=== PATIENT | male | born 1945 | race Caucasian/White ===

== ENCOUNTER 2016-10-09 03:09 | Observation (INO) | payer OTHER, MEDICARE ==
[~2016-10-09] VITALS: Ht 180.3 cm; Wt 90.6 kg
[~2016-10-09 03:09] MED LIST: ASPI81TA28 PO; ATOR-26 PO; LSN5 PO; MECL1TAB40 PO
[2016-10-09] MEDS ORDERED: NITROGLYCERIN 0.4 MG SL PER TAB CHARGE SL PRN ×2 (03:45→05:15)
--- NOTE | 2016-10-09 03:48 | EMERGENCY ROOM VISIT NOTE ---
History Report prepared by Stoney: Bk Christine Under the Supervision of: Dr. Sergio Abreu M.D. Chief Complaint: CHEST PAIN Stated Complaint: CHEST PAIN History of Present Illness The patient is a 71 year old male who presents to the Emergency Room with complaints of improving chest pain that started at approximately 2300 tonight. The pain is substernal and does not radiate. The pain is described as a sharp sensation. The patient had Aspirin at approximately 0030. The patient had a heart attack in 2006 for which he was stented. He had 100% occlusion of the LAD at that time. He had more of a pressure sensation in his chest when he had the heart attack. His heart rate is typically low at baseline. The patient commonly experiences pain with acid reflux, however the current episode of pain is different. The patient is on Lisinopril for hypertension and a statin for HLD. He denies any history of diabetes and does not smoke. The patient follows up with [facility] Investigator Internal Affairs. The patient denies headaches, palpitations, shortness of breath, nausea, vomiting, abdominal pain, rectal bleeding, urinary symptoms, or leg pain. Source of History: patient Onset: 2300 tonight Position: chest Quality: sharp Timing: other (improving) Associated Symptoms: No SOB, No abdominal pain, No headache, No hematochezia , No melena, No nausea, No urinary symptoms Review of Systems See HPI for pertinent positives & negatives. A total of 10 systems reviewed and were otherwise negative. Past Medical & Surgical Medical Problems: (1) Chest pain (2) Coronary artery disease (3) Hyperlipidemia (4) Hyperlipidemia (5) Hypertension (6) Hypertension (7) [place] (myocardial infarction) Surgical Problems: (1) Stented coronary artery Family History Cancer Heart disease Social History Smoking Status: Former Smoker Alcohol Use: none Marital Status: Housing Status: lives alone Occupation Status: retired Current/Historical Medications Scheduled Aspirin (Aspirin Ec), 81 MG PO HS Atorvastatin (Lipitor), 80 MG PO HS Lisinopril (Lisinopril), 5 MG PO HS Allergies Coded Allergies: No Known Allergies (Verified , 02/28/16) Physical Exam Vital Signs Date Time Temp Pulse Resp B/P Pulse Ox O2 Delivery O2 Flow Rate FiO2 10/09/16 04:30 49 18 101/61 94 Room Air 10/09/16 04:09 63 18 88/55 92 Room Air 10/09/16 03:52 50 20 113/62 96 Room Air 10/09/16 03:50 48 10/09/16 03:37 95 Room Air 10/09/16 03:12 36.7 55 21 165/73 95 Room Air Physical Exam GENERAL: Patient is anxious appearing and in minimal distress. HEENT: No acute trauma, normocephalic atraumatic, mucous membranes moist, no nasal congestion, no scleral icterus. NECK: No stridor, no adenopathy, no meningismus, trachea is midline. LUNGS: No dyspnea. Clear to auscultation and equal bilaterally. No wheeze, no rhonchi. HEART: Regular rate and rhythm. No murmurs, rubs, gallops appreciated. ABDOMEN: Soft, nontender, bowel sounds positive, no masses appreciated, no peritonitis. BACK: No midline tenderness, no CVA tenderness EXTREMITIES: Normal motion all extremities, no cyanosis, no edema. NEUROLOGIC: Alert and oriented, no acute motor or sensory deficits, no focal weakness, cranial nerves grossly intact. SKIN: No rash, no jaundice, no diaphoresis. Medical Decision & Procedures ER Provider Diagnostic Interpretation: X ray results are stated below per my interpretation: Chest: 1 view: No infiltrate, no effusion, normal cardiac border. Laboratory Results 10/09/16 03:15 Test 10/09/16 03:15 D-Dimer 440 ug/L FEU (0-500) Anion Gap 6.0 mmol/L (3-11) Est Creatinine Clear Calc Drug Dose 70.3 ml/min Estimated GFR () 77.3 Estimated GFR (Non- 66.7 BUN/Creatinine Ratio 21.0 (10-20) Calcium Level 8.9 mg/dl (8.5-10.1) Total Creatine Kinase 164 U/L (39-308) Creatine Kinase MB 4.1 ng/ml (0.5-3.6) Creatine Kinase MB Ratio 2.5 (0-3.0) Troponin I 0.022 ng/ml (0-0.045) Chemistry Specimen Hemolysis Laboratory results as reviewed by me. Medications Administered Medications (Trade) Dose Ordered Sig/Arthur Route Start Time Stop Time Status Last Admin Dose Admin Nitroglycerin (Nitrostat Tab) 0.4 mg Q5M PRN SL 10/09/16 03:45 5/6/17 03:44 10/09/16 04:04 0.4 MG Miscellaneous Medication 24 ml 24 ml NOW STAT PO 10/09/16 04:11 10/09/16 04:12 DC 10/09/16 04:19 24 ML Sodium Chloride (Nss 1000ml) 1,000 ml @ 999 mls/hr Q1H1M STAT IV 10/09/16 04:11 10/09/16 05:11 DC 10/09/16 04:20 999 MLS/HR Al Hydroxide/Mg Hydroxide (Maalox Susp) 30 ml STK-MED ONCE .ROUTE 10/09/16 04:22 10/09/16 04:23 DC 10/09/16 04:19 30 ML Lidocaine HCl (Xylocaine 1% Inj (Local)) 20 ml STK-MED ONCE .ROUTE 10/09/16 04:22 10/09/16 04:23 DC 10/09/16 04:19 20 ML ECG Indication: chest pain Rate (beats per minute): 50 Rhythm: sinus bradycardia Findings: 1st degree AV block, nonspecific-ST abn, no ectopy, other (no STEMI) ED Course 0319: The patient was evaluated in room A2. A complete history and physical exam was performed. 0345: Nitroglycerin 0.4 mg SL. 0411: NSS 1000 ml @ 999 mls/hr, GI Cocktail 24 ml PO. 0425: The patient still has some chest pain. 0439: Discussed the case with Dr. Napier, [facility] Hospitalist. The patient will be evaluated. Medical Decision Differential: Cardiac Ischemia (STEMI, NSTEMI, Unstable Angina, etc), Aortic Dissection, Arrhythmia, Pulmonary Embolism, Pneumonia, Pneumothorax, MSK, Infectious, Pericarditis/Myocarditis, Esophageal Rupture, Gastrointestinal, amongst other pathologies entertained. 71 yr old male with non-radiating substernal chest pain. Unlike normal reflux per patient. EKG without STEMI. Trop wnl though non-negative. Improved with SLNTG/GI Cocktail though mild continued discomfort. With amount of hypotension with first nitro will hold off on further and just give fluids. No evidence dissection, PE. I do not feel he requires CTA a this time. With his history and risk factors I do not feel that discharge is reasonable and thus have asked hospitalists to evaluate. Stable and feeling well at time of hospitalist consult. Consults Time Called: [phone] Consulting Physician: Jose Miguel Mohr Hospitalist. Returned Call: [phone]: Discussed the case with Jose Miguel Mohr Hospitalist. The patient will be evaluated. Impression Primary Impression: Substernal precordial chest pain Scribe Attestation The scribe's documentation has been prepared under my direction and personally reviewed by me in its entirety. I confirm that the note above accurately reflects all work, treatment, procedures, and medical decision making performed by me. Departure Information Dispostion Being Evaluated By Hospitalist Referrals Imani Frausto D.O. (PCP) Patient Instructions [facility]
[2016-10-09 04:06] LABS: CALCIUM 8.9 mg/dl (8.5-10.1); CKMB/CK RATIO 2.5 (0-3.0); CREATININE 1.1 mg/dl (0.60-1.40)
[2016-10-09] MEDS ORDERED: GI COCKTAIL PO STA (04:11)
[2016-10-09] MEDS ORDERED: SODIUM CHLORIDE 0.9% 1000ML 1,000 ML IV STA (04:11)
[2016-10-09] MEDS ORDERED: LIDOCAINE HCL 1% 20 ML VIAL ONE (04:22)
[2016-10-09] MEDS ORDERED: ALUMINUM/MAGNESIUM SUSP 30 ML UDC ONE (04:22)
[2016-10-09] MEDS ORDERED: IV FLUIDS COMPLETED PRN (05:15)
[2016-10-09] MEDS ORDERED: POLYETHYLENE (MIRALAX) 17 GM PACK PO PRN (05:15)
[2016-10-09] MEDS ORDERED: ONDANSETRON INJ 2 MG/ML 2 ML VIAL IV PRN (05:15)
[2016-10-09] MEDS ORDERED: ACETAMINOPHEN 325 MG TAB PO PRN (05:15)
[2016-10-09] MEDS ORDERED: MAGNESIUM HYDROXIDE SUSP 30 ML UDC PO PRN (05:15)
[2016-10-09] MEDS ORDERED: ALUMINUM/MAGNESIUM/SIMETH (MAALOX MAX) 30 ML UDC PO PRN (05:15)
--- NOTE | 2016-10-09 05:47 | History and Physical ---
History & Physical Date & Time of Service: Oct 09, 2016 at 05:43 Chief Complaint: Chest Pain Primary Care Physician: Imani Frausto D.O. History of Present Illness Source: patient This is a 71 yo M with past medical hx of CAD -Acute NV in 2006 S/P 2 bare metal stent in LAD for severe proximal LAD stenosis revealed in emergent cardiac cath . Pt is very active at baseline -does regular exercise -cardio and weight lifting , denies of any SOB , or UGALDE with exercise presents today as he experiencing epigastric discomfort started approx at 11 pm , pt was watching TV no associated symptom of SOB , diaphoresis , dizzy spell , no radiation of pain to arm or Jaw pt gets frequent upper GI symptom /epigastric discomfort due to acid reflux - presence of hiatal Hernia He disregard his symptom for possible acid reflux -which usually goes away after 20-30 mins His symptom persisted and got worse -with aching discomfort in substernal region , made him concerned -came to ED for evaluation in the ED SL nitro gave minimum relief -but developed transient hypotension - SBP in 90's , responded with fluid bolus ; Bradycardic HR in low 50's significant improvement of symptom after GI cocktail during my interview -pt was chest pain , free , comfortable no recent episode of nausea , vomiting , dark stool , no fever , chills or cough . no orthopnea, or UGALDE Past Medical/Surgical History Medical Problems: (1) Coronary artery disease Status: Chronic Cardiac cath in 05/31/08 in [facility] [place], mild to moderate multivessel disease , 20% ostial lesion in left main , 30 % stenosis in distal LAD stent , 30% stenosis in the mid and distal LAD . 30% stenosis in second diagonal , 30% stenosis in the proximal circumflex , 40 % stenosis of the post descending artery (2) Hyperlipidemia Status: Chronic (3) Hyperlipidemia Status: Chronic (4) Hypertension Status: Chronic (5) Hypertension Status: Chronic (6) [place] (myocardial infarction) Status: Resolved Surgical Problems: (1) Stented coronary artery Status: Chronic Family History Cancer Heart disease Social History Smoking Status: Former Smoker Marital Status: Occupational Status: retired Immunizations History of Influenza Vaccine: N/A History of Tetanus Vaccine?: Yes Tetanus Immunization Date: Feb 21, 2010 History of Pneumococcal: Yes Pneumococcal Date: May 23, 2008 History of Hepatitis B Vaccine: No Allergies Coded Allergies: No Known Allergies (Verified , 02/28/16) Home Medications Scheduled Aspirin (Aspirin Ec), 81 MG PO HS Atorvastatin (Lipitor), 80 MG PO HS Lisinopril (Lisinopril), 5 MG PO HS Review of Systems Eyes: No diplopia, No discharge, No eye pain, No problem reported, No redness, No worsening of vision Respiratory: No cough, No dyspnea at rest, No dyspnea on exertion, No hemoptysis, No problem reported, No shortness of breath, No sputum, No wheezing Cardiovascular: + chest pain, No PND, No claudication, No edema, No orthopnea, No palpitations, No problem reported Abdomen: + GI bleeding (acid reflux ) Genitourinary - Male: No dysuria, No hematuria, No impotence, No lesions, No penile discharge, No problem reported, No urinary frequency, No urinary hesitancy, No urinary incontinence, No urinary retention, No urinary urgency Endocrine: No excessive thirst, No excessive urination, No fatigue, No problem reported Physical Exam Vital Signs Date Time Temp Pulse Resp B/P Pulse Ox O2 Delivery O2 Flow Rate FiO2 10/09/16 05:27 50 18 98/53 95 10/09/16 04:30 49 18 101/61 94 Room Air 10/09/16 04:09 63 18 88/55 92 Room Air 10/09/16 03:52 50 20 113/62 96 Room Air 10/09/16 03:50 48 10/09/16 03:37 95 Room Air 10/09/16 03:12 36.7 55 21 165/73 95 Room Air General Appearance: no apparent distress Eyes: normal inspection, PERRL, EOMI, sclerae normal Neck: no adenopathy, thyroid normal, no JVD Respiratory/Chest: chest non-tender, lungs clear, normal breath sounds, no respiratory distress, no accessory muscle use Cardiovascular: regular rate, rhythm, no edema, no gallop, no JVD, normal peripheral pulses Abdomen/GI: normal bowel sounds, non tender, soft Extremities/Musculoskelatal: normal capillary refill, no pedal edema Neurologic/Psych: alert, normal mood/affect, oriented x 3 Skin: normal color, warm/dry, no rash Lymphatic: no adenopathy Diagnostics Laboratory Results Results Past 24 Hours Test 10/09/16 03:15 Range/Units D-Dimer 440 0-500 ug/L FEU Sodium Level 145 136-145 mmol/L Potassium Level 4.0 3.5-5.1 mmol/L Chloride Level 109 98-107 mmol/L Carbon Dioxide Level 30 21-32 mmol/L Anion Gap 6.0 3-11 mmol/L Blood Urea Nitrogen 23 7-18 mg/dl Creatinine 1.10 0.60-1.40 mg/dl Est Creatinine Clear Calc Drug Dose 70.3 ml/min Estimated GFR () 77.3 Estimated GFR (Non- 66.7 BUN/Creatinine Ratio 21.0 10-20 Random Glucose 88 70-99 mg/dl Calcium Level 8.9 8.5-10.1 mg/dl Total Creatine Kinase 164 39-308 U/L Creatine Kinase MB 4.1 0.5-3.6 ng/ml Creatine Kinase MB Ratio 2.5 0-3.0 Troponin I 0.022 0-0.045 ng/ml Chemistry Specimen Hemolysis CXR normal Normal EKG Impression Assessment and Plan CHEST PAIN ATYPICAL FOR ANGINA ; very active at baseline -denied of any exercise induced chest discomfort or SOB hx of chronic GERD / hiatal Hernia initial cardiac markers , EKG -wnl given hx of CAD -serial cardiac markers will be checked ordered for resting ECHO cardiac stress test if repeat Cardiac markers negative , pt remains chest pain free GERD /HIATAL HERNIAL; mentions of improvement of symptom after GI cocktail PPI not ordered as pt gets Dizzy spell with PPI will benefit form out pt GI eval for ongoing symptom HX OF CAD S/P PTCA in 2006 has been stable since pt mentions of cardiac stress done few years back -was negative for ischemia cont Aspirin , statin , ACEI not on Beta beatriz for baseline bradycardia cont out pt follow up with Cardiology Dr Lee HTN : BP stable cont lisinopril HYPERLIPIDEMIA : on statin fasting lipid panel ordered BRADYCARDIA chronic -sinus bradycardia baseline HR in 50's ordered for TSH level to be checked not on beta beatriz had Holter monitor testing few years back -no arrhythmia noted FULL CODE DISPOSITION : observation status in Tele Discharge home as cardiac work up negative Medicine follow up with Dr Imani Frausto Cardiology follow up with Dr Tu Lee Level of Care Telemetry Resuscitation Status FULL RESUSCITATION VTE Prophylaxis VTE Risk Assessment Done? Y/N: Yes Risk Level: Moderate Given or contraindicated: T.E.D. Stockings, SCD's
[2016-10-09 05:53] LABS: CHOLESTEROL/HDL RATIO 2.4
[2016-10-09] MEDS ORDERED: HEPARIN SOD 5000 UNIT/0.5 ML CARP SQ SCH (06:00)
[2016-10-09 06:11] VITALS: BP 101/58; PULSE 41; TEMP 36.4; O2SAT 97; Ht 180.3 cm; Wt 90.6 kg
[2016-10-09 06:43] LABS: BASO % 0.4 %; BASO ABS # 0.03 K/uL (0-0.2); COMPLETE YES; EOS % 4.1 %; HEMATOCRIT 45.6 % (42-52); IG% 0.3 %; LYMPH % 41.4 %; LYMPH ABS # 2.86 K/uL (1.2-3.4); MEAN CELL VOLUME 90.5 fL (80-100); MEAN CORPUSCULAR HEMOGLOBIN 31.5 pg (25-34); MEAN CORPUSCULAR HGB CONC 34.9 g/dl (32-36); MEAN PLATELET VOLUME 10.4 fL (7.4-10.4); MONO % 13.9 %; NEUT % 39.9 %; PLATELET COUNT 216 K/uL (130-400); RED BLOOD COUNT 5.04 M/uL (4.7-6.1)
[2016-10-09 07:26] LABS: THYROID STIMULATING HORMONE 5.72 uIu/ml (0.300-4.500)
--- NOTE | 2016-10-09 07:35 | DIAGNOSTIC IMAGING REPORT ---
CHEST ONE VIEW PORTABLE CLINICAL HISTORY: Chest Pain dyspnea COMPARISON STUDY: 03/28/2015 FINDINGS: The bones soft tissues and hemidiaphragms are normal. The cardiomediastinal silhouette is normal. The lungs are clear. The pulmonary vasculature is normal. IMPRESSION: Negative chest. Electronically signed by: Redd Montoya M.D. 10/09/2016 7:33 AM Dictated Date/Time: 10/09/2016 7:33 AM
[2016-10-09 07:48] VITALS: BP 108/55; PULSE 48; TEMP 36.9; O2SAT 98
[2016-10-09 08:00] VITALS: O2SAT 98
--- NOTE | 2016-10-09 09:35 | Cardiology Consultation ---
Cardiology Consultation Date of Consultation: Oct 09, 2016 Requesting Physician: Karthikeyan Attending Jewelry Drill Operator: Lizeth (Redd Roberts PA-C) History of Present Illness Mr. Oropeza is a pleasant 71 year old male who is being seen at the request of Dr. Napier. Reason for consultation is chest pain. Mr. Oropeza notes substernal/epigastric discomfort that he gets from time to time "because I have a hiatal hernia, if I don't watch what I eat." He notes " usually having a liquid I regurgitate and burping but not this time and it didn' t go away." Yesterday he reheated fried chicken in the microwave for lunch and later had a large cup of coffee in the afternoon which he typically only consumes in the morning. For dinner he ate crab cakes and had Thin Mints late in the evening prior to laying back in a lounge chair and watching [employer] on [place]. While watching television he developed the nonradiating substernal/epigastric discomfort that was without associated shortness of breath or diaphoresis. Around 02:30 he became concern that it "may be something else" due to persistence of symptoms which usually resolve in ~30 minutes. In the ER the patient was evaluated by Dr. Abreu. EKG on presentation ( 03:13:28) to the ER demonstrated sinus bradycardia with sinus arrhythmia with 1st degree A-V block; old anterior infarct. QTc: 397 ms. No acute changes noted. CPK was normal at 164. CK-MB was mildly elevated at 4.1. Troponin was 0.022 ng/mL. Chest x-ray was interpreted as a negative chest as per Dr. Montoya. He was given a trial of sublingual nitroglycerin with resultant symptomatic hypotension requiring administration of IVF's. Thereafter he was given a GI cocktail which eventually resulted in complete resolution of his presenting symptoms. He has not had recurrence of chest discomfort since admission. Repeat EKG, 2nd set of cardiac enzymes, and TTE are pending at the time of my evaluation. The patient notes being active to his level of preference, without exertional complaint. He notes working out daily, at least 20 minutes of cardio and strength exercising when not able to ride his bicycle outdoors. He notes that the discomfort that brought him to the hospital was unlike the discomfort associated with his CO in 2006. (Redd Roberts PA-C) History Past Medical and Surgical History: Atherosclerotic coronary artery disease Status post prior anterior myocardial infarction in September 2006, PCI of the LAD with two bare metal stents. Initial course complicated by a low flow requiring intraaortic balloon pump augmentation. Recovery of LV function post procedure. Repeat cardiac catheterization at [facility] on 05/31/2008 revealed mild 3-vessel disease and an ejection fraction of 50%. Anatomy was right dominant with the RCA having luminal irregularities and a 40% tubular lesion in the PDA ( posterior descending artery). The LM had a 20% ostial lesion. The LCX had a 30% lesion in the proximal circumflex with the OM2 having multiple 20% lesions. The LAD had a 30% lesion in the distal portion of the LAD stent, 30% lesions in the mid and apical portions, 30% D2 stenosis. LV gram revealed an EF of 50% with discrete apical akinesis and mild to moderate anterior hypokinesis. Dyslipidemia with past elevated triglycerides. Hypertension, controlled. Beta-beatriz intolerance GERD Hiatal hernia Two arthroscopic right rotator cuff surgeries Arthroscopic left rotator cuff surgery Trigger finger release on the left Arthroscopic right knee surgery Inguinal hernia repair. Umbilical hernia repair Family History: Mother in August 2016, age 99, renal failure. Father a couple of years ago, age 97, with a URI. His father and a paternal uncle had prostate cancer. Maternal grandmother with CAD and CHF. Maternal uncles with CAD/CHF in their 80's. Social History: Reformed smoker, quit when he son was born in 1974. He smoked up to 2 ppd x 13 years. No smokeless tobacco use. Alcohol: 1-2 glasses of wine a few days per week. Retired post [employer] in 2006 after working in [employer] 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 . (Redd Roberts PA-C) Review Of Systems General: No fever, chills or night sweats. Head: No headache. No head trauma. Cardiovascular: See above. No palpitations. No orthopnea or PND. No edema. No near syncope or syncope. Pulmonary: No current cough. No hemoptysis. Gastrointestinal: GERD. Hiatal hernia. He notes taking Protonix for near two years post upper GI, feeling poorly with dizzy spells, fatigue, and " dehydration cycles." No melena, hematochezia. : No hematuria. No dysuria. Skin: No rash. Musculoskeletal: See above. Neurological: No history of TIA, CVA, or seizures Complete review of systems is as stated above, negative, or noncontributory. (Redd Roberts PA-C) Allergies Coded Allergies: No Known Allergies (Verified , 02/28/16) Medications Reported Home Medications Medications Dose Route/Sig Max Daily Dose Days Date Category Lisinopril 5 Mg Tab 5 Mg PO HS 01/06/14 Reported Lipitor (Atorvastatin Calcium) 80 Mg Tab 80 Mg PO HS 01/06/14 Reported Aspirin Ec (Aspirin) 81 Mg Tab 81 Mg PO HS 01/06/14 Reported (Redd Roberts PA-C) Physical Exam Vital Signs (Last 8hrs): Last 8 Hrs Date Time Temp Pulse Resp B/P Pulse Ox O2 Delivery O2 Flow Rate FiO2 10/09/16 08:00 98 Room Air 10/09/16 07:48 36.9 48 16 108/55 98 Room Air 10/09/16 06:11 36.4 41 18 101/58 97 Room Air 10/09/16 05:27 50 18 98/53 95 10/09/16 04:30 49 18 101/61 94 Room Air 10/09/16 04:09 63 18 88/55 92 Room Air 10/09/16 03:52 50 20 113/62 96 Room Air 10/09/16 03:50 48 10/09/16 03:37 95 Room Air 10/09/16 03:12 36.7 55 21 165/73 95 Room Air General Appearance: Alert and Oriented x3. NAD. Head: Normocephalic Atraumatic. Eyes: PER, EOMI, conjunctiva and sclera clear Neck: Supple. No carotid bruits. No JVD. No HJD. Respiratory: Breath sounds clear to auscultation bilaterally. No w/r/r. Cardiovascular: Bradycardic at 50 bpm. Normal S1 and S2. No murmurs appreciated. PMI is nondisplaced. Abdomen: +BS. No abdominal bruits. Soft. Nontender. Extremities: No edema. No clubbing. No cyanosis. Posterior tibial and dorsalis pedis pulses are 2/4 bilaterally. Neuro: No focal deficits. Psychiatric: Normal affect. (Redd Roberts PA-C) Data Last 24 Hours Test 10/09/16 03:15 10/09/16 09:00 White Blood Count 6.90 K/uL Red Blood Count 5.04 M/uL Hemoglobin 15.9 g/dL Hematocrit 45.6 % Mean Corpuscular Volume 90.5 fL Mean Corpuscular Hemoglobin 31.5 pg Mean Corpuscular Hemoglobin Concent 34.9 g/dl Platelet Count 216 K/uL Mean Platelet Volume 10.4 fL Neutrophils (%) (Auto) 39.9 % Lymphocytes (%) (Auto) 41.4 % Monocytes (%) (Auto) 13.9 % Eosinophils (%) (Auto) 4.1 % Basophils (%) (Auto) 0.4 % Neutrophils # (Auto) 2.75 K/uL Lymphocytes # (Auto) 2.86 K/uL Monocytes # (Auto) 0.96 K/uL Eosinophils # (Auto) 0.28 K/uL Basophils # (Auto) 0.03 K/uL RDW Standard Deviation 43.8 fL RDW Coefficient of Variation 13.3 % Immature Granulocyte % (Auto) 0.3 % Immature Granulocyte # (Auto) 0.02 K/uL Nucleated RBC Absolute Count (auto) 0.00 K/uL Nucleated Red Blood Cells % 0.0 % D-Dimer 440 ug/L FEU Sodium Level 145 mmol/L Potassium Level 4.0 mmol/L Chloride Level 109 mmol/L Carbon Dioxide Level 30 mmol/L Anion Gap 6.0 mmol/L Blood Urea Nitrogen 23 mg/dl Creatinine 1.10 mg/dl Est Creatinine Clear Calc Drug Dose 70.3 ml/min Estimated GFR () 77.3 Estimated GFR (Non- 66.7 BUN/Creatinine Ratio 21.0 Random Glucose 88 mg/dl Calcium Level 8.9 mg/dl Total Creatine Kinase 164 U/L Creatine Kinase MB 4.1 ng/ml Creatine Kinase MB Ratio 2.5 Troponin I 0.022 ng/ml Triglycerides Level 126 mg/dl Cholesterol Level 103 mg/dl HDL Cholesterol 43 mg/dl LDL Cholesterol, Calculated 35 mg/dl VLDL Cholesterol, Calculated 25 mg/dl Cholesterol/HDL Ratio 2.4 Thyroid Stimulating Hormone (TSH) 5.720 uIu/ml Chemistry Specimen Hemolysis CXR: See above. EKG: See above. Telemetry: Sinus bradycardia predominately, down to 34 bpm. No significant pauses. No atrial arrhythmias. (Redd Roberts, PA-C) Assessment & Plan Atypical chest pain History suggests GI etiology CXR without active cardiopulmonary disease EKG without acute changes. Troponin 0.022 ng/ml. Further recommendations pending review of today's EKG, 2nd set of enzymes, and resting echocardiography. Likely proceeding with stress echocardiography to assess for obstructive disease as well as to identify chronotropic incompetence. Continue ASA, statin, and MECHE inhibition Beta-beatriz contraindicated (marked resting bradycardia). (Redd Roberts, MELODIE-C) Cardioogy Attending Physician: Patient seen and examined at the bedside. No recurrent epigastric or chest discomfort this AM. Discomfort relieved with 'GI cocktail' in ED. History of hiatal hernia. States he normally exercises daily without exertional symptoms. Sinus bradycardia on telemetry. PE: VSS, bradycardic. Gen: NAD, AAO x3. Neck: No JVD, No bruit. Heart: Regular, normal S1S2, no murmur. Lungs: Clear B/L, No R/R/W. Ext: No edema. A/P: Agree with above PA-C history, physical exam, assessment and plan. Second second of troponins are not significantly elevated. Resting echocardiogram demonstrates Apical wall motion abnormality with preserved systolic function ( stable compared to prior study). Will proceed with exercise stress echocardiography. Abebe Stanley DO, [facility] (Scot Stanley DO)
[2016-10-09 09:36] LABS: CKMB/CK RATIO 2.6 (0-3.0)
--- NOTE | 2016-10-09 10:50 | ECHOCARDIOGRAM REPORT ---
*NOTICE TO RECEIVING REPUBLICAN AGENCY This information is strictly Confidential and protected under [place] law. [place] law prohibits you from making any further disclosure of this information unless further disclosure is expressly permitted by the written consent of the person to whom it pertains or is authorized by law. A general authorization for the release of medical or other information is not sufficient for this purpose. Hospital accepts no responsibility if the information is made available to any other person, INCLUDING THE PATIENT. Interpretation Summary * Name: LEXY GARZA Study Date: 10/09/2016 08:59 AM BP: 98/53 mmHg * Patient Location: C.2T\S\E221\S\1 HR: 50 * : 1945 (M/d/yyyy) Gender: Male Height: 70 in * Age: 71 yrs Ethnicity: CA Weight: 202 lb * Ordering Physician: Isabelle Napier * Referring Physician: Self, Referred * Performed By: Sravani Sheriff RCS * * Reason For Study: Chest Pain * BSA: 2.1 m2 * The study was technically adequate. * Compared to prior study, there is no significant change. * -- Conclusions -- * Left ventricular systolic function is normal. * Ejection Fraction = 55-60%. * There is mild tricuspid regurgitation. * Mildly dilated ascending aorta. * Diastolic dysfunction, Grade II (pseudonormalization pattern). Procedure Details * A complete two-dimensional transthoracic echocardiogram was performed (2D, M-mode, Doppler and color flow Doppler). Left Ventricle * The left ventricle is normal in size. * The left ventricular apex is not well visualized. * There is normal left ventricular wall thickness. * Left ventricular systolic function is normal. * Ejection Fraction = 55-60%. * The left ventricular wall motion is normal. Right Ventricle * The right ventricle is normal size. * The right ventricular systolic function is normal as assessed by tricuspid annular plane systolic excursion (TAPSE) (normal >1.5 cm). Atria * The left atrium is mildly dilated. * Right atrial size is normal. * There is no evidence of atrial septal defect, but resolution does not allow assessment for a patent foramen ovale. Mitral Valve * There is mild mitral annular calcification. * There is no mitral valve stenosis. * Significant mitral regurgitation is absent. Tricuspid Valve * The tricuspid valve is normal. * There is no tricuspid stenosis. * There is mild tricuspid regurgitation. * Doppler findings do not suggest pulmonary hypertension. Aortic Valve * The aortic valve is trileaflet. * Aortic stenosis is absent. * There is no significant aortic regurgitation. Pulmonic Valve * The pulmonary valve is not well seen, but the Doppler examination is normal without significant regurgitation or stenosis. Great Vessels * The aortic root is normal size. * Mildly dilated ascending aorta. Pericardium/Pleural * There is no pericardial effusion. Great Vessels * Normal inferior vena cava diameter and respiratory variation suggests normal central venous pressure. Left Ventricular Diastolic Function * Diastolic dysfunction, Grade II (pseudonormalization pattern). MMode 2D Measurements and Calculations IVSd 1.0 cm IVSs 1.3 cm LVIDd 5.2 cm LVIDs 2.9 cm LVPWd 0.99 cm LVPWs 1.4 cm IVS/LVPW 1.1 FS 44.2 % EDV(Teich) 127.7 ml ESV(Teich) 31.7 ml EF(Teich) 75.2 % EDV(cubed) 138.1 ml ESV(cubed) 23.9 ml EF(cubed) 82.7 % % IVS thick 27.2 % % LVPW thick 39.3 % LV mass(C)d 196.6 grams LV mass(C)dI 93.8 grams/m\S\2 LV mass(C)s 125.9 grams LV mass(C)sI 60.1 grams/m\S\2 CO(Teich) 3.9 l/min CI(Teich) 1.9 l/min/m\S\2 SV(Teich) 96.0 ml SI(Teich) 45.8 ml/m\S\2 CO(cubed) 4.7 l/min CI(cubed) 2.2 l/min/m\S\2 SV(cubed) 114.1 ml SI(cubed) 54.5 ml/m\S\2 Ao root diam 3.8 cm Ao root area 11.5 cm\S\2 ACS 2.0 cm LA dimension 4.3 cm LA/Ao 1.1 LVAd ap4 30.7 cm\S\2 LVLd ap4 9.0 cm EDV(MOD-sp4) 86.0 ml LVAs ap4 15.5 cm\S\2 LVLs ap4 6.9 cm ESV(MOD-sp4) 30.0 ml EF(MOD-sp4) 65.1 % LVAd ap2 34.8 cm\S\2 LVLd ap2 8.2 cm EDV(MOD-sp2) 124.0 ml LVAs ap2 18.9 cm\S\2 LVLs ap2 6.7 cm ESV(MOD-sp2) 45.0 ml EF(MOD-sp2) 63.7 % CO(MOD-sp4) 2.3 l/min CI(MOD-sp4) 1.1 l/min/m\S\2 SV(MOD-sp4) 56.0 ml SI(MOD-sp4) 26.7 ml/m\S\2 CO(MOD-sp2) 3.2 l/min CI(MOD-sp2) 1.5 l/min/m\S\2 SV(MOD-sp2) 79.0 ml SI(MOD-sp2) 37.7 ml/m\S\2 Doppler Measurements and Calculations MV E max davin 88.8 cm/sec MV A max davin 61.9 cm/sec MV E/A 1.4 MV P1/2t max davin 87.8 cm/sec MV P1/2t 136.0 msec MVA(P1/2t) 1.6 cm\S\2 MV dec slope 189.1 cm/sec\S\2 MV dec time 0.27 sec Ao V2 max 98.4 cm/sec Ao max PG 3.9 mmHg Ao max PG (full) -0.63 mmHg LV V1 max PG 4.5 mmHg LV V1 max 106.1 cm/sec PA V2 max 76.8 cm/sec PA max PG 2.4 mmHg TR max davin 215.0 cm/sec
[2016-10-09 11:48] VITALS: BP 104/57; PULSE 45; TEMP 36.4; O2SAT 98
[2016-10-09 12:00] VITALS: O2SAT 98
[2016-10-09] MEDS ORDERED: PERFLUTREN LIPID MICROSPHERE (DEFINITY) IV ONE (12:31)
--- NOTE | 2016-10-09 13:33 | Discharge Instructions ---
Discharge Instructions Date of Service Oct 09, 2016. Admission Reason for Admission: Chest Pain Discharge Discharge Diagnosis / Problem: Atypical chest pain Discharge Goals Goal(s): Diagnostic testing Activity Recommendations Activity Limitations: resume your previous activity . Instructions / Follow-Up Instructions / Follow-Up Please follow up with Family Medicine Dr. Frausto on October 14 at 10:00am. Current Hospital Diet Patient's current hospital diet: Discharge Diet Recommended Diet: AHA Diet (Heart Healthy) Procedures Procedures Performed: Treadmill stress echocardiogram Pending Studies Studies pending at discharge: no Laboratory Results Lipid Panel Test 10/09/16 03:15 Range/Units Triglycerides Level 126 0-150 mg/dl Cholesterol Level 103 0-200 mg/dl HDL Cholesterol 43 mg/dl Cholesterol/HDL Ratio 2.4 LDL Cholesterol, Calculated 35 mg/dl Medical Emergencies . Who to Call and When: Medical Emergencies: If at any time you feel your situation is an emergency, please call 911 immediately. . Non-Emergent Contact Non-Emergency issues call your: Primary Care Provider . . "Provider Documentation" section prepared by Tonja Hernandez. VTE Core Measure Inpt VTE Proph given/why not?: Satya Beck, SCD's
[2016-10-09 13:40] VITALS: BP 104/57; PULSE 45; TEMP 36.4; O2SAT 98
--- NOTE | 2016-10-09 18:06 | EXERCISE STRESS ECHO ---
*NOTICE TO RECEIVING LIBERTARIAN AGENCY This information is strictly Confidential and protected under [place] law. [place] law prohibits you from making any further disclosure of this information unless further disclosure is expressly permitted by the written consent of the person to whom it pertains or is authorized by law. A general authorization for the release of medical or other information is not sufficient for this purpose. Hospital accepts no responsibility if the information is made available to any other person, INCLUDING THE PATIENT. Interpretation Summary * Name: LEXY GARZA Study Date: 10/09/2016 11:42 AM BP: 97/32 mmHg * Patient Location: C.2T\S\E221\S\1 HR: 43 * : 1945 (M/d/yyyy) Gender: Male Height: 70 in * Age: 71 yrs Ethnicity: [place] Weight: 199 lb * Ordering Physician: Isabelle Napier * Referring Physician: Self, Referred * Performed By: Sravani Sheriff RCS * * Reason For Study: Chest Pain * BSA: 2.1 m2 * The study was technically adequate. * Abnormal resting wall motion consistent with old infarction. No new stress-induced wall motion abnormalities. * Exercise capacity is above average. * -- Conclusions -- * Apical akinesis at rest. (see resting echo report for details) * Apical wall motion abnormality remains fixed on stress images. The remaining LV myocardial wall segments demonstrate augmented contractility on stress imaging. Procedure Details * ECHOEX, CPT #70292 * A contrast injection of Definity was performed to improve assessment of LV function. * Contrast was injected into an intravenous site in the left arm. * One vial of Definity ultrasound contrast was diluted in normal saline to a total volume of 10 ml. A total of '4' ml of solution was administered during imaging. * Lot # [id number] of Definity utilized for procedure. * Expiration date 1APR18. * The attending nurse who injected the contrast agent was Michael Carrasquillo RN. Left Ventricle * The left ventricle is normal in size. * There is normal left ventricular wall thickness. * The left ventricular ejection fraction increases normally with stress. The left ventricular end-systolic cavity size reduces post-stress (normal response). The left ventricular wall motion with stress is normal. * Apical akinesis at rest. (see resting echo report for details) Apical wall motion abnormality remains fixed on stress images. The remaining LV myocardial wall segments demonstrate augmented contractility on stress imaging. Stress Parameters * Baseline ECG: Sinus bradycardia. * Stress ECG: No ST changes. No arrhythmias. * The stress portion of this study was personally supervised by the undersigned interpreting physician. * Rest heart rate was '43' BPM. * Rest blood pressure was '97/32' * Maximum heart rate achieved was 142 bpm. * Maximum heart rate was 95 % of maximum age-predicted heart rate. * Maximum blood pressure was '164/69' * Total exercise time was '9:16' * Maximum exercise MET level achieved was '10.5' METS * Maximum treadmill speed was '4.2' miles per hour. * Maximum treadmill elevation was '16'% grade. * Exercise was terminated due to 'achieving target heart rate' * Normal blood pressure response to exercise.
--- NOTE | 2016-10-09 20:44 | Discharge Summary ---
Discharge Summary Date of Service Oct 09, 2016. Discharge Summary Admission Date: Oct 09, 2016 at 05:04 Discharge Date: Oct 09, 2016 Discharge Disposition: Home Principal Diagnosis: Atypical chest pain Procedures: TTE * Left ventricular systolic function is normal. * Ejection Fraction = 55-60%. * There is mild tricuspid regurgitation. * Mildly dilated ascending aorta. * Diastolic dysfunction, Grade II (pseudonormalization pattern). Treadmill stress echo * The study was technically adequate. * Abnormal resting wall motion consistent with old infarction. No new stress -induced wall motion abnormalities. * Exercise capacity is above average. * -- Conclusions -- * Apical akinesis at rest. (see resting echo report for details) * Apical wall motion abnormality remains fixed on stress images. The remaining LV myocardial wall segments demonstrate augmented contractility on stress imaging. Consultations: Cardiology Medication Reconciliation Continued Medications: Aspirin (Aspirin Ec) 81 Mg Tab 81 MG PO HS Atorvastatin (Lipitor) 80 Mg Tab 80 MG PO HS, TAB Lisinopril (Lisinopril) 5 Mg Tab 5 MG PO HS Admission Information HPI (per Admitting provider): This is a 71 yo M with past medical hx of CAD -Acute MA in 2006 S/P 2 bare metal stent in LAD for severe proximal LAD stenosis revealed in emergent cardiac cath . Pt is very active at baseline -does regular exercise -cardio and weight lifting , denies of any SOB , or UGALDE with exercise presents today as he experiencing epigastric discomfort started approx at 11 pm , pt was watching TV no associated symptom of SOB , diaphoresis , dizzy spell , no radiation of pain to arm or Jaw pt gets frequent upper GI symptom /epigastric discomfort due to acid reflux - presence of hiatal Hernia He disregard his symptom for possible acid reflux -which usually goes away after 20-30 mins His symptom persisted and got worse -with aching discomfort in substernal region , made him concerned -came to ED for evaluation in the ED SL nitro gave minimum relief -but developed transient hypotension - SBP in 90's , responded with fluid bolus ; Bradycardic HR in low 50's significant improvement of symptom after GI cocktail during my interview -pt was chest pain , free , comfortable no recent episode of nausea , vomiting , dark stool , no fever , chills or cough . no orthopnea, or UGALDE Physical Exam (per Admitting): General Appearance: no apparent distress Eyes: normal inspection, PERRL, EOMI, sclerae normal Neck: no adenopathy, thyroid normal, no JVD Respiratory/Chest: chest non-tender, lungs clear, normal breath sounds, no respiratory distress, no accessory muscle use Cardiovascular: regular rate, rhythm, no edema, no gallop, no JVD, normal peripheral pulses Abdomen/GI: normal bowel sounds, non tender, soft Extremities/Musculoskelatal: normal capillary refill, no pedal edema Neurologic/Psych: alert, normal mood/affect, oriented x 3 Skin: normal color, warm/dry, no rash Lymphatic: no adenopathy Hospital Course Patient was admitted to telemetry and no events were noted on monitoring. Chest pain had resolved after GI cocktail in the ED. Cardiology was consulted. ACS r/ o was negative. TTE and treadmill stress echo did not show any new wall motion abnormalities. Patient was continued on his home medications and no changes were made. Patient deemed stable for discharge with Family medicine follow up. PE on discharge: General- awake; alert; NAD Eyes- EOMI; no scleral icterus Neck- no stridor; trachea midline Lungs- CTA bilaterally; no wheezes/crackles Heart- RRR; no m/r/g Abdomen- soft; NTND; nBS Back- no gross abnormalities Extremities- no c/c/e; no deformity Neuro- no focal deficits Skin- no appreciable rash . Total time spent on discharge = This includes examination of the patient, discharge planning, medication reconciliation, and communication with other providers. Discharge Instructions Discharge Instructions Date of Service Oct 09, 2016. Admission Reason for Admission: Chest Pain Discharge Discharge Diagnosis / Problem: Atypical chest pain Discharge Goals Goal(s): Diagnostic testing Activity Recommendations Activity Limitations: resume your previous activity . Instructions / Follow-Up Instructions / Follow-Up Please follow up with Family Medicine Dr. Frausto on October 14 at 10:00am. Current Hospital Diet Patient's current hospital diet: Discharge Diet Recommended Diet: AHA Diet (Heart Healthy) Procedures Procedures Performed: Treadmill stress echocardiogram Pending Studies Studies pending at discharge: no Laboratory Results Lipid Panel Test 10/09/16 03:15 Range/Units Triglycerides Level 126 0-150 mg/dl Cholesterol Level 103 0-200 mg/dl HDL Cholesterol 43 mg/dl Cholesterol/HDL Ratio 2.4 LDL Cholesterol, Calculated 35 mg/dl Medical Emergencies . Who to Call and When: Medical Emergencies: If at any time you feel your situation is an emergency, please call 911 immediately. . Non-Emergent Contact Non-Emergency issues call your: Primary Care Provider . . "Provider Documentation" section prepared by Tonja Hernandez. VTE Core Measure Inpt VTE Proph given/why not?: Satya Beck, SCD's Additional Copies To Imani Frausto D.O.
[2016-10-09] MEDS ORDERED: ATORVASTATIN 40 MG TAB PO SCH (21:00)
[2016-10-09] MEDS ORDERED: LISINOPRIL 5 MG TAB PO SCH (21:00)
[2016-10-09] MEDS ORDERED: ASPIRIN 81 MG ECTAB PO SCH (21:00)
[2017-05-06] MEDS ORDERED: PRED20TA2 PO (11:26)
[2017-05-06] MEDS ORDERED: ZYR10 PO (11:26)
[2017-05-06] MEDS ORDERED: FAMO20TA9 PO (11:42)
== END 2016-10-09 13:55 | disposition home or self-care (01) ==
LOC: ENRESERVTM → ENRESERVDT → C.EDA 03:09 → C.2T 05:04
PROVIDERS: ADMIT Hospitalist; ATTEND Internal Medicine
DX: R07.89 Other chest pain (principal); I25.10 Atherosclerotic heart disease of native coronary artery without angina pectoris; I25.2 Old myocardial infarction; E78.5 Hyperlipidemia, unspecified; Z87.891 Personal history of nicotine dependence; Z98.890 Other specified postprocedural states; Z84.1 Family history of disorders of kidney and ureter; Z83.6 Family history of other diseases of the respiratory system; Z80.42 Family history of malignant neoplasm of prostate; Z82.49 Family history of ischemic heart disease and other diseases of the circulatory system

== ENCOUNTER 2023-08-01 17:08 | Observation (INO) ==
--- OUTSIDE RECORDS SUMMARY | 2023-08-01 17:12 | External Medical Summary ---
Author Name Unknown Address Unknown Organization [id number]:[facility] [place] [facility] [id number] Laboratory Report Ordering Provider Test Date Status SOCORRO LARA 07/29/2023 18:39:23 Final Observation Date Value Abnormality Reference (Units) Status Streptococcus pyogenes DNA [Presence] in Throat by NEO with probe detection 07/29/2023 18:39:23 Negative. No Group A Streptococcus detected by PCR (amplified probe). Negative Final This test was developed and its performance characteristics determined by [facility]. It has not been cleared or approved by the FDA. The laboratory is regulated under CLIA as qualified to perform high- complexity testing. This test is used for clinical purposes. It should not be regarded as investigational or for research. Performing Location LAB[address]ATORY [address] [facility] [id number]
--- OUTSIDE RECORDS SUMMARY | 2023-08-01 17:12 | External Medical Summary | Summary of Care ---
Author Name Unknown Organization [facility] Address [address] [place] [address] Phone [phone] Care Team Providers Care Lift Electrician Name Role Phone Theresa Tang MD Primary Care Provider [phone] Reason for Visit * Reason Comments Sore Throat Encounter Details Date Type Department Care Team (Latest Contact Info) Description 07/29/2023 5:45 PM EST Convenient Care Visit [facility] [address] [place] [address] Praveena Robison PA-C [address] [facility] [place] [id number] Acute pharyngitis, unspecified etiology*; URI with cough and congestion Allergies Active Allergy Reactions Criticality Noted Date Comments Doxycycline Edema airway High 05/13/2017 documented as of this encounter (statuses as of 07/30/2023) Medications Medication Sig Dispensed Refills Start Date End Date Status ASPIRIN 81 MG PO CHEWIndications:Other specified prophylactic or treatment measure,Old myocardial infarct One pill by mouth once a day with food 100 Tab 5 04/25/2013 Active Vitamin D3 25 MCG (1000 UT) Oral Tablet (Vitamin D3) Take 1 Tablet by mouth in the morning. 0 05/27/2021 Active ALPRAZolam 0.25 MG Oral Tablet (xaNAX)Indications:Anx iety TAKE ONE TABLET BY MOUTH DAILY NEEDED FOR ANXIETY 15 Tablet 0 12/02/2022 Active Losartan Potassium 25 MG Oral Tablet (Cozaar)Indications:Es sential hypertension with goal blood pressure less than 130/80 Take 1 Tablet by mouth in the morning. 90 Tablet 3 01/09/2023 Active Atorvastatin Calcium 80 MG Oral Tablet (Lipitor)Indications:D yslipidemia, goal LDL below 70 Take 1 Tablet by mouth in the morning. 90 Tablet 3 02/16/2023 Active Meclizine HCl 25 MG Oral Tablet (Antivert)Indications: Benign paroxysmal positional vertigo of left ear Take 1 Tablet by mouth 3 times a day as needed for Dizziness. 30 Tablet 0 05/26/2023 Active documented as of this encounter (statuses as of 07/30/2023) Active Problems Problem Noted Date Diagnosed Date JC (generalized anxiety disorder) 08/09/2019 Bradycardia, sinus 07/08/2019 Ascending aorta dilatation 12/01/2018 Coronary artery disease invo lving [place] coronary artery of [place] heart without angina pectoris 2018 History of coronary artery stent placement 04/12 Essential hypertension with goal blood pressure less than 130/80 11/09/2017 Beta-blockers contraindicated 04/28/2013 Gastroesophageal reflux disease without esophagi tis 02/26/2011 Dyslipidemia, goal LDL below 70 06/19/2009 Overview: Per Lipid Taxonomy. OLD MYOCARDIAL INFARCT 01/25/2009 Overview: Modified by Acute [place] Protocol #5. in [place]; anterior [place] 2 stents placed documented as of this encounter (statuses as of 07/30/2023) Resolved Problems Problem Noted Date Diagnosed Date Resolved Date Acute myocardial infarction of other sites, initial episode of care 09/03/2006 01/25/2009 Overview: Modified by Acute [place] Protocol #5. in [place]; anterior [place] 2 stents placed Mixed dyslipidemia 9 Overview: Per Lipid Taxonomy. documented as of this encounter (statuses as of 07/30/2023) Immunizations Name Administration Dates Next Due COVID-19 mRNA, LNP-s, No Pre serve, 2-Dose Series (BuzzSumo) 11/06/2021,09/03/2021,03/31/2021,03/06,08/23/2020,07/30/2020,07/08/2020 Covid-19, Mrna, Lnp-s, Pf, B ivalent, 30 Mcg, IM, 12 yrs and above (Pfizer) 05/09/2022 Pneumococcal Conjugate Vacc, 13 Valent (Prevnar) 04/15/2016 Pneumococcal Conjugate Vacci ne, 20-valent ([id number]) 02/19/2022 Pneumococcal Polysaccharide PPV23 (Pneumovax) 11/16/2013,05/23/2008 RSV Vac., Recomb, Adjuvant, PF,0.5 Ml (Arexvy) 04/15/2023 Season Influenza, Quad, PF, Adjuvanted, 65+ Yrs, IM (FLUAD) 04/19/2020 Seasonal Influenza, PF, 6 M & above, IM , (FluLaval or Fluzone) 02/17/2019,2018,05/13/2017 Seasonal Influenza, Quadriva lent Hd (Fluzone Hd) 03/25/2023,05/09/2022,03/26/2021 Seasonal Influenza, Quadriva lent, No Preserve, IM 04/15/2016 Seasonal Influenza, Split, I IV3, With Preserve, Inj 05/23/2014,04/25/2013,04/20/2012,08/29,05/14/2010,03/14/2009,05/23/2008 Seasonal Influenza, Trivalen t, High Dose, No Preserve, IM 02/25/2019 TD - Tetanus/Diptheria (ADULT) 01/02/2007 TDAP (age 10 and older)(Boostrix) 08/17/2017 Varicella Zoster Vaccine (Adult) 05/07/2012 Yellow Fever Vaccine 08/28/2017 Zoster Vaccine Recombinant (Shingrix) 11/04/2019 ,08/11/2019 documented as of this encounter Social History Tobacco Use Types Packs/Day Years Used Date Smoking Tobacco: Former Cigarettes 2 13 Q uit: 1975 Smokeless Tobacco: Never Tobacco Cessation:Counseling Given: Not Answered Alcohol Use Standard Drinks/Week Comments Yes 0 (1 standard drink = 0.6 oz pure alcohol) moderate/ 2 glasses per day. not curretly AUDIT-C Answer Date Recorded Frequency of Alcohol Consumption 2-3 times a wee k 08/09/2019 Average Number of Drinks 3 or 4 02/04/2 020 Frequency of Binge Drinking Not on file 10/2019 PHQ-2 Answer Date Recorded PHQ Adult Total Score 0 03/02/2023 Hunger Vital Sign Answer Date Recorded Worried About Running Out of Food in the Last Ye ar Never true 08/09/2019 Ran Out of Food in the Last Year Never true 08/09/2019 Sex and Gender Information Value Date Recorded Sex Assigned at Male 01/09/2023 8:27 AM EDT Gender Identity Male 01/09/2023 8:27 AM EDT Sexual Orientation Straight 01/09/2023 8: 27 AM EDT Job Start Date Occupation Industry Not on file Not on file Not on file documented as of this encounter Last Filed Vital Signs Vital Sign Reading Time Taken Comments Blood Pressure 112/72 07/29/2023 5:51 PM EST Pulse 63 07/29/2023 5:51 PM EST Temperature 36.1 C (96.9 F) 07/29/2023 5:51 PM ES T Respiratory Rate 16 07/29/2023 5:51 PM EST Oxygen Saturation 98% 07/29/2023 5:51 PM EST Inhaled Oxygen Concentration - - Weight 92.1 kg (203 lb) 07/29/2023 5:51 PM EST Height 177.8 cm (5' 10") 07/29/2023 5:51 PM EST Body Mass Index 29.13 07/29/2023 5:51 PM EST documented in this encounter Patient Instructions * Patient Instructions* Praveena Robison PA-C - 07/29/2023 6:46 PM EST Discussed this is viral infection and will need to treat symptoms, let it run its course, Discussedacetaminophen motrin toggle Fluids, time Can take a few days but sometimes up to a couple weeks and mild cough can last even longer If symptoms worsen a lot, any SOB, wheezing, return, if severe, go to ER documented in this encounter Progress Notes * Praveena Robison PA-C - 07/29/2023 6:37 PM EST Subjective: Nursing Notes: Lo Romero, RT 07/29/23 2294 Signed Tima Oropeza is a 78 year old male who presents to walk-in clinic today complaining of sore throat How lon days Tried: nyquil and dayquil Pt accompanied by: self Sx are very sore throat x 3 d, then this morning was very congested no sick contacts at home. Sig med hx/risk factors: old [place]. HTN had flu shot this year. Review of Systems Constitutional: Negative for activity change, appetite change, fatigue and fever. HENT: Positive for congestion, dental problem (about a week ago had a tooth pulled and this feels alittle swollen where tooth removed), postnasal drip, rhinorrhea and sore throat. Negative for ear pain, sinus pressure, sinus pain and voice change. Eyes: Negative for discharge and redness. Respiratory: Negative for cough, chest tightness, shortness of breath and wheezing. Cardiovascular: Negative for chest pain. Gastrointestinal: Negative for abdominal pain, diarrhea, nausea and vomiting. Musculoskeletal: Negative for arthralgias, neck pain and neck stiffness. Allergic/Immunologic: Negative for environmental allergies. Neurological: Negative for dizziness. PMH: Patient Active Problem List Diagnosis Code OLD MYOCARDIAL INFARCT I25.2 Dyslipidemia, goal LDL below 70 E78.5 Gastroesophageal reflux disease without esophagitis K21.9 Beta-blockers contraindicated Z53.09 Essential hypertension with goal blood pressure less than 130/80 I10 Coronary artery disease involving [place] coronary artery of [place] heart without angina pectoris I25.10 History of coronary artery stent placement Z95.5 Ascending aorta dilatation (HCC) I77.810 Bradycardia, sinus R00.1 JC (generalized anxiety disorder) F41.1 Current Outpatient Medications Medication Sig Dispense Refill ASPIRIN 81 MG PO CHEW One pill by mouth once a day with food 100 Tab 5 Vitamin D3 25 MCG (1000 UT) Oral Tablet (Vitamin D3) Take 1 Tablet by mouth in the morning. Losartan Potassium 25 MG Oral Tablet (Cozaar) Take 1 Tablet by mouth in the morning. 90 Tablet 3 Atorvastatin Calcium 80 MG Oral Tablet (Lipitor) Take 1 Tablet by mouth in the morning. 90 Tablet 3 Meclizine HCl 25 MG Oral Tablet (Antivert) Take 1 Tablet by mouth 3 times a day as needed for Dizziness. 30 Tablet 0 ALPRAZolam 0.25 MG Oral Tablet (xaNAX) TAKE ONE TABLET BY MOUTH DAILY NEEDED FOR ANXIETY 15 Tablet 0 No current facility-administered medications for this visit. Past Medical History: Diagnosis Date Acute myocardial infarction of other sites, initial episode of care 09/2006 in [place]; anterior [place] 2 stents placed Beta-beatriz intolerance 04/28/2013 Mixed dyslipidemia Past Surgical History: Procedure Laterality Date COLONOSCOPY, DIAGNOSTIC (RECTUM) 01/16/2015 diverticulosis, repeat 10 yrs/COLONOSCOPY FLEXIBLE PROXIMAL DIAGNOSTIC performed by Katia Albright MD at [facility] COLORECTAL CANCER SCREEN; NOT AT RISK 12/24/2007 diverticulosis EGD, FLEXIBLE, W/BIOPSY 04/08/2011 bxs--mild inflammation end of esophagus KNEE ARTHROSCOPY/MENISCUS REPAIR Left 2009 Dr. Ramsey KNEE ARTHROSCOPY/MENISCUS REPAIR Right 11/17/2022 REPAIR INITIAL INGUINAL HERNIA REDUCIBLE AGE 5 OR MORE Right 02/27/2016 02/27/2016REPAIR INITIAL INGUINAL HERNIA REDUCIBLE AGE 5 OR MORE performed by Alice Myers MDat [facility] REPAIR RUPTURED ROTATOR CUFF, ACUTE Bilateral Rotator cuff repair bialteral, surgery twice on Rt and once on left TENDON SHEATH INCISION, FINGER 2009 Dr Ramsey UMBIL HERNIA REPAIR (REDUCIBLE) AGE 5+YR N/A 02/27/2016 02/27/2016 REPAIR UMBILICAL HERNIA AGE 5 AND OVER performed by Alice Myers MD at [facility] Review of patient's allergies indicates: Allergen Reactions Doxycycline Edema airway Objective: BP 112/72 (BP Site: Left Arm, BP Position: Sitting, BP Cuff Size: Regular) | Pulse 63 | Temp 36.1 C (96.9 F) (Tympanic) | Resp 16 | Ht 1.778 m (5' 10") | Wt 92.1 kg (203 lb) | SpO2 98% | BMI 29.13 kg/m | BSA 2.13 m Physical Exam Constitutional: Appearance: Normal appearance. He is normal weight. HENT: Head: Normocephalic. Right Ear: Tympanic membrane, ear canal and external ear normal. Left Ear: Tympanic membrane, ear canal and external ear normal. Nose: Rhinorrhea present. No congestion. Mouth/Throat: Pharynx: Posterior oropharyngeal erythema present. No oropharyngeal exudate. Eyes: Extraocular Movements: Extraocular movements intact. Conjunctiva/sclera: Conjunctivae normal. Cardiovascular: Rate and Rhythm: Normal rate and regular rhythm. Heart sounds: Normal heart sounds. Pulmonary: Effort: Pulmonary effort is normal. Breath sounds: Normal breath sounds. No wheezing or rhonchi. Musculoskeletal: Cervical back: Normal range of motion. No rigidity. No muscular tenderness. Lymphadenopathy: Cervical: No cervical adenopathy. Skin: Findings: No rash. Neurological: Mental Status: He is alert and oriented to person, place, and time. Psychiatric: Mood and Affect: Mood normal. Thought Content: Thought content normal. Judgment: Judgment normal. ASSESSMENT/PLAN: Acute pharyngitis, unspecified etiology (Primary) - STREP A SCREEN, POINT OF CARE (ENTER/EDIT) - GROUP A STREP PCR URI with cough and congestion Patient Instructions Discussed this is viral infection and will need to treat symptoms, let it run its course, Discussedacetaminophen motrin toggle Fluids, time Can take a few days but sometimes up to a couple weeks and mild cough can last even longer If symptoms worsen a lot, any SOB, wheezing, return, if severe, go to ER Return instruction reviewed with pt in detail. Reasons to report to the ED were also reviewed. Voiced understanding Advised to follow up if no improvement in 3-5days. Praveena Robison PA-C documented in this encounter Nursing Notes * Lo Romero RT - 07/29/2023 5:51 PM EST Tima Oropeza is a 78 year old male who presents to walk-in clinic today complaining of sore throat How lon days Tried: nyquil and dayquil Pt accompanied by: self documented in this encounter Plan of Treatment Upcoming Encounters Date Type Department Care Team (Late st Contact Info) Description 09/04/2023 1:30 PM EST Office Visit Cardiology, [facility] [address] [facility] [place] [id number] Audrey Maki PA-C [address] [facility] [place] [id number] Pending Results Name Type Priority Associated Diagnoses Date /Time GROUP A STREP PCR Lab Routine Acute pharyngitis, unspecified etiology 07/29/2023 6:39 PM EST Scheduled Procedures Name Priority Associated Diagnoses Date/Ti me COLONOSCOPY FLEXIBLE PROXIMA L DIAGNOSTIC Recall Special screening for malignant neoplasms, colon Health Maintenance Due Date Last Done Comments COVID-19 Vaccine ( season) 2023 05/09/2022, 11/06/2021, 09/03/2021, Additional history exists Depression Screening 03/02/2024 03/02/2023 GFR 07/05/2024 07/05/2023, 04/06, 11/20/2021, Additional history exists Albumin/Creatinine Ratio 05/21/2025 05/21/2022 DTaP,Tdap,and Td Vaccines (2 - Td or Tdap) 08/17/2027 08/17/2017, 01/02/2007 Zoster Vaccines Completed 11/04/2019, 12/2019, 05/07/2012 Pneumococcal Vaccine: 65+ Years Completed 02/19/2022, 04/15/2016, 11/16/2013, Additional history exists Influenza Vaccine (FLU shot) Completed , 05/09/2022, 03/26/2021, Additional history exists GARDASIL-HPV IMMUNIZATION SERIES Aged Out No longer eligible based on patient's age to complete this topic Hepatitis B Aged Out No longer eligi ble based on patient's age to complete this topic MENINGOCOCCAL (MENACTRA/MENVEO) Aged Out No longer eligible based on patient's age to complete this topic documented as of this encounter Medical Devices Implanted Type Area Slasher Tender Device Identifier Shelf Expiration Date Model / Serial / Lot Patch Mesh Pre-W/Cord Opening - [id number] Implanted:Qty: 1 on 02/27/2016 by Alice Myers MD at [facility] Right: Groin CR BARD : DAVOL 02/02/2019 [id number] / / [id number] documented as of this encounter Procedures Procedure Name Priority Date/Time Associated Diagnosis Comments STREP A SCREEN, POINT OF CARE (ENTER/EDIT) Routine 07/29/2023 6:39 PM EST Acute pharyngitis, unspecified etiology documented in this encounter Results * STREP A SCREEN, POINT OF CARE (ENTER/EDIT) (07/29/2023 6:39 PM EST) Strep A Result Negative Negative Procedural Control Valid? Yes Lot Number [id number] Expiration Date Swab Throat swab / Unknown 07/29/2023 6:39 PM EST Praveena Robison PA-C LAB POINT OF C ARE TEST ENTER/EDIT ORDERABLES documented in this encounter Visit Diagnoses Diagnosis Acute pharyngitis, unspecified etiology- Primary URI with cough and congestion documented in this encounter Care Teams Lift Electrician Relationship Specialty Start Date End Date Theresa Tang MD [address] [place] [address] PCP - General Family Medicine 05/26/23 documented as of this encounter
[2023-08-01 18:03] LABS: Basophils # (auto) 0.04 K/uL (0.00-0.20); Basophils % (auto) 0.5 %; Eosinophils # (auto) 0.41 K/uL (0.00-0.50); Eosinophils % (auto) 4.8 %; Hematocrit (blood only) 45.8 % (42.0-52.0); Hemoglobin 15.4 g/dl (14.0-18.0); Immature Granulocytes # (auto) 0.03 K/uL (0.01-0.20); Immature Granulocytes % (auto) 0.4 %; Lymphocytes # (auto) 2.82 K/uL (1.20-3.40); Lymphocytes % (auto) 33.3 %; Mean Corpuscular Hemoglobin 30.6 pg (25.0-34.0); Mean Corpuscular Hgb Conc 33.6 g/dL (32.0-36.0); Mean Corpuscular Volume 90.9 fL (80.0-100.0); Mean Platelet Volume 9.8 fL (9.4-12.4); Monocytes # (auto) 0.93 K/uL (0.11-0.59); Neutrophils # (auto) 4.25 K/uL (1.40-6.50); Platelet Count 230 K/uL (130-400); RDW Coefficient of Variation 13.2 % (11.5-14.5); Red Blood Count 5.04 M/uL (4.70-6.10); White Blood Count 8.48 K/ul (4.8-10.8)
--- NOTE | 2023-08-01 18:03 | Emergency Department Note ---
Impression & Plan Atrial flutter, Tachycardia ED Provider Note CHIEF COMPLAINT: Palpitations HISTORY OF PRESENT ILLNESS: This 78-year-old male patient past medical history of coronary artery disease, hypertension, hyperlipidemia presents to the emergency department with complaints of palpitations in the setting of a cold. The patient states he was feeling palpitations and decided to lay down. He was feeling uncomfortable and took his pulse. He states it was going so fast he could not count it. He does believe that the heart rate is now under control, but is still feeling ill due to his cold. He denies being on any blood thinners. He denies any significant fevers. He has had no chest pain or shortness of breath. REVIEW OF SYSTEMS: A review of systems was performed with positives and pertinent negatives listed in the history of present illness. 10 systems were reviewed and are otherwise negative. ALLERGIES: see below MEDICATIONS: see below PMH: see below SOCIAL HISTORY: see below DDx: COVID, influenza, atrial fibrillation, pulmonary embolus, acute coronary syndrome, electrolyte abnormality, dehydration, pneumonia among others. PHYSICAL EXAM: Vital signs reviewed. General: Well-appearing 78-year-old male, in no significant distress. HEENT: No scleral icterus, PERRLA, neck supple. Moist mucous membranes Cardiovascular: Irregular rate controlled, no extra sounds. Pulmonary: Clear to auscultation bilaterally, normal work of breathing. Abdomen: Soft, nontender, nondistended, positive bowel sounds. Musculoskeletal: Atraumatic, no peripheral edema. Neurologic: Patient awake alert and oriented x 3, speech is clear Skin: Warm, dry, no rash EMERGENCY DEPARTMENT COURSE/MDM: This patient was evaluated and appeared to be in no significant distress. IV access was obtained and laboratory work was drawn. The patient was placed on the county director and noted to be in a atrial flutter with variable block. Patient states he has a history of atrial fibrillation however I do not find documentation of that in our notes. He is followed by [facility] cardiology. He is not currently anticoagulated. I did discuss the case with Dr. Funes of the hospitalist service who has requested a heparin drip. This was ordered. Patient did not require any rate controlling medications for me. He will return to the ER for worsening of symptoms or any medical concerns. MONITORING: An order for cardiac monitoring was placed and the patient is noted to be in a atrial flutter at 93 beats per minute. RADIOLOGY: Chest x-ray to my interpretation reveals no evidence of acute process. EKG to my interpretation reveals atrial flutter with variable AV block. 64 bpm. Anterior infarct. QTc of 427. When compared to previous dated May 26, 2022, atrial flutter is new. DISPOSITION: Home Past Med/Surg History Medical History History of [place] (myocardial infarction) Inguinal hernia Thoracic aortic aneurysm BPH w urinary obs/LUTS Arthritis Compressed cervical disc Erectile dysfunction Hiatal hernia GERD (gastroesophageal reflux disease) Coronary artery disease Surgical History Hx of cataract extraction History of esophagogastroduodenoscopy (EGD) History of colonoscopy S/P inguinal hernia repair S/P right knee arthroscopy History of repair of left rotator cuff History of repair of right rotator cuff S/P trigger finger release History of heart artery stent History of cardiac cath Family History Mother Kidney failure Father Congestive heart failure Social History Smoking Status: Never smoker Second Hand Exposure: No; Do You Dip or Chew Tobacco: No; Hx Alcohol Use: Yes Alcohol type: wine Hx Substance Use: No Preferred Language: Latvian Communication Ability: Effective Protective Service Specialist Required: No Beliefs That Will Affect Care: None Current Living Situation: Alone Feels Safe at Home: Yes Seatbelt Use: always Assistive Devices: Contacts and Glasses Allergies Allergies Allergy/AdvReac Type Severity Reaction Status Date / Time doxycycline Allergy Severe ANAPHYLAXIS Verified 07/16/23 12:49 Home Meds Home Medications Medication Instructions Recorded Confirmed atorvastatin 80 mg tablet 80 mg PO HS #90 tabs 03/14/19 07/16/23 meclizine 25 mg tablet 25 mg PO QID PRN Dizziness 03/14/19 07/16/23 aspirin 81 mg tablet,delayed 81 mg PO HS 04/11/19 07/16/23 release (Aspir-) losartan 25 mg tablet 25 mg PO HS 07/13/19 07/16/23 vit C 250 mg-vit E 90 mg-zinc 40 1 tab PO QAM 07/13/19 07/16/23 mg-copper 1 [id number] capsule (PreserVision AREDS-2) Previous Rx's Medication Instructions Recorded sildenafil (pulm.hypertension) 20 20 mg PO DAILY PRN sexual activity 01/27/23 mg tablet #30 tabs alprazolam 0.25 mg tablet 0.25 mg PO DAILY PRN anxiety #15 05/07/23 tabs Results & Data (ED) Vital Signs Vital Signs - 24 hr 08/01/23 17:09 08/01/23 17:09 08/01/23 17:25 Temperature 36.4 C L Temperature Source Temporal Artery Scan Pulse Rate 90 93 H Pulse Rate from SpO2 Sensor Respiratory Rate 16 Respiratory Effort / Characteristics Short of Breath Non-Labored Spontaneous Respiratory Depth Normal Blood Pressure 147/80 H Blood Pressure Mean 102 Pulse Oximetry 98 Oxygen Delivery Method Room Air Sepsis Recent Fever Within 48 Hours No Sepsis New/Unexplained Change in Mental Status No Sepsis Action Taken by Nursing No Action Required 08/01/23 18:00 08/01/23 18:30 08/01/23 18:56 Temperature Temperature Source Pulse Rate 57 L 58 L 65 Pulse Rate from SpO2 Sensor 64 65 Respiratory Rate 16 16 Respiratory Effort / Characteristics Respiratory Depth Blood Pressure 114/72 113/73 Blood Pressure Mean 86 86 Pulse Oximetry 96 95 Oxygen Delivery Method Room Air Sepsis Recent Fever Within 48 Hours Sepsis New/Unexplained Change in Mental Status Sepsis Action Taken by Nursing 08/01/23 19:00 08/01/23 19:31 08/01/23 19:47 Temperature Temperature Source Pulse Rate 68 71 Pulse Rate from SpO2 Sensor 67 Respiratory Rate 20 16 Respiratory Effort / Characteristics Respiratory Depth Blood Pressure 123/82 Blood Pressure Mean 95 Pulse Oximetry 97 96 Oxygen Delivery Method Room Air Sepsis Recent Fever Within 48 Hours Sepsis New/Unexplained Change in Mental Status Sepsis Action Taken by Nursing 08/01/23 19:51 08/01/23 22:00 08/01/23 22:59 Temperature 37 C Temperature Source Oral Pulse Rate 71 66 Pulse Rate from SpO2 Sensor 70 Respiratory Rate 20 Respiratory Effort / Characteristics Respiratory Depth Blood Pressure 116/77 Blood Pressure Mean 90 Pulse Oximetry 97 Oxygen Delivery Method Room Air Sepsis Recent Fever Within 48 Hours Sepsis New/Unexplained Change in Mental Status Sepsis Action Taken by [facility] Medications Current Medication List: was personally reviewed by me Laboratory Data Attestation: I reviewed the patient's lab results. 08/01/23 17:40 08/01/23 17:40 Lab Results 08/01/23 08/01/23 08/01/23 Range/Units 17:40 17:48 19:45 WBC 8.48 (4.8-10.8) K/ul RBC 5.04 (4.70-6.10) M/uL Hgb 15.4 (14.0-18.0) g/dl Hct 45.8 (42.0-52.0) % MCV 90.9 (80.0-100.0) fL MCH 30.6 (25.0-34.0) pg MCHC 33.6 (32.0-36.0) g/dL RDW Std Deviation 44.0 (36.4-46.3) fL RDW Coeff of Belkis 13.2 (11.5-14.5) % Plt Count 230 (130-400) K/uL MPV 9.8 (9.4-12.4) fL Immature Gran % (Auto) 0.4 % Neut % (Auto) 50.0 % Lymph % (Auto) 33.3 % [place] % (Auto) 11.0 % Eos % (Auto) 4.8 % Baso % (Auto) 0.5 % Neut # (Auto) 4.25 (1.40-6.50) K/uL Lymph # (Auto) 2.82 (1.20-3.40) K/uL [place] # (Auto) 0.93 H (0.11-0.59) K/uL Eos # (Auto) 0.41 (0.00-0.50) K/uL Baso # (Auto) 0.04 (0.00-0.20) K/uL Immature Gran # (Auto) 0.03 (0.01-0.20) K/uL PT 10.9 (9.0-12.0) Seconds INR 1.0 (0.9-1.1) APTT 26 (21-31) Seconds PTT Ratio 0.9 Heparin Anti-Xa, LM Wt < 0.10 (< 0.10) IU/ML Sodium 139 (136-145) mmol/L Potassium 4.1 (3.5-5.1) mmol/L Chloride 106 (98-107) mmol/L Carbon Dioxide 28 (21-32) mmol/L Anion Gap 5 (3-11) BUN 27 H (6-23) mg/dl Creatinine 0.89 (0.6-1.4) mg/dl Est Cr Clr Drug Dosing 76.7 ml/min Est GFR ( Amer) 94.3 ml/min Est GFR (Non-Af Amer) 81.3 ml/min BUN/Creatinine Ratio 30.3 H (10-20) Glucose 110 H (70-99(Fasting)) mg/dl Calcium 8.9 (8.6-10.3) mg/dl Magnesium 1.9 (1.7-2.4) mg/dl Total Bilirubin 0.5 (0.2-1.0) mg/dl AST 20 (13-39) U/L ALT 22 (7-52) U/L Alkaline Phosphatase 144 H (34-104) U/L Troponin I High Sens 23.9 H 23.5 H (0-20) pg/ml Total Protein 6.8 (6.0-8.3) gm/dl Albumin 4.1 (3.4-5.0) gm/dl Globulin 2.7 (2.5-4.0) gm/dl Albumin/Globulin Ratio 1.5 (0.9-2) Lipase 24 (11-82) U/L TSH 2.574 (0.300-4.500) uIu/ml Adenovirus (PCR) Not Detected (NotDetected) B. pertussis DNA (PCR) Not Detected (NotDetected) B.parapertussis DNA PCR Not Detected (NotDetected) C. pneumoniae DNA (PCR) Not Detected (NotDetected) Coronavirus OC43 (PCR) Not Detected (NotDetected) Coronavirus HKU1 (PCR) Not Detected (NotDetected) Coronavirus 229E (PCR) Not Detected (NotDetected) SARS-CoV-2 (PCR) Not Detected (NotDetected) Coronavirus NL63 (PCR) Not Detected (NotDetected) Human Metapneumovir PCR Not Detected (NotDetected) Influenza Type A (PCR) Not Detected (NotDetected) Influenza Type B (PCR) Not Detected (NotDetected) M. pneumoniae (PCR) Not Detected (NotDetected) Parainfluenza 1 (PCR) Not Detected (NotDetected) Parainfluenza 2 (PCR) Not Detected (NotDetected) Parainfluenza 3 (PCR) Not Detected (NotDetected) Parainfluenza 4 (PCR) Not Detected (NotDetected) RSV (PCR) Not Detected (NotDetected) Entero/Rhino (PCR) Not Detected (NotDetected) Administered Medications Heparin Sodium/Dextrose (Heparin Sodium/Dextrose) 25,000 units in 500 mls @ 29 mls/hr IV .[id number] [facility]; Protocol Stop: 08/31/23 21:29 Last Admin: 08/01/23 22:09 Dose: 1,450 units/hr, 29 mls/hr Documented By: ADEBAYO Co-signed By: ANAND Discontinued Medications Atorvastatin Calcium (Atorvastatin 40 Mg Tab) 80 mg PO NOW STA Stop: 08/01/23 21:18 Last Admin: 08/01/23 22:13 Dose: 80 mg Documented By: ADEBAYO Heparin Sodium (Porcine) (Heparin Sod (Porcine) 1000 Unit/Ml) 3,000 units IV NOW ONE Stop: 08/01/23 22:01 Last Admin: 08/01/23 22:08 Dose: 3,000 units Documented By: ADEBAYO Co-signed By: ANAND Heparin Sodium/Dextrose (Heparin Iv Adult Wt-Based Low-Dose W/ Initial Bolus Protocol) 1 each IV NOW STA; Protocol Stop: 08/01/23 19:59 Last Admin: 08/01/23 21:41 Dose: Not Given Documented By: ANAND Imaging Data Radiologist's Impression: Chest X-Ray 08/01/23 17:28 XR chest 1V portable HISTORY: Chest pain, nonspecific COMPARISON: Chest 05/26/2022. FINDINGS: The lungs are clear. Cardiac silhouette is normal in size. No pleural effusions. No pneumothorax. IMPRESSION: No acute process. ACT 112: Negative or not required by law. Electronically signed by: Jordan Mckeon M.D. 08/01/2023 6:18 PM Discharge Plan Visit Data Chief Complaint: Cardiac Assessment Stated Complaint: HX OF [place], TACHYCARDIA,IRREGULAR HEARTBEAT,SOB ED Provider: Carrie Green Discharge Problem: Atrial flutter, Tachycardia Patient Disposition: Home - Self-Care Forms Stand Alone Forms: [facility], Important Visit Information Prescriptions Prescriptions: No Action sildenafil (pulm.hypertension) 20 mg tablet 20 mg PO DAILY PRN (Reason: sexual activity) Qty: 30 0RF Rx Instructions: take 1 -5 tabs by mouth one hour before intercourse as needed max dose 100mg/day alprazolam 0.25 mg tablet 0.25 mg PO DAILY PRN (Reason: anxiety) Qty: 15 0RF meclizine 25 mg tablet 25 mg PO QID PRN (Reason: Dizziness) atorvastatin 80 mg tablet 80 mg PO HS Qty: 90 aspirin [Aspir-81] 81 mg Tablet,Delayed Release (Dr/Ec) 81 mg PO HS losartan 25 mg tablet 25 mg PO HS PreserVision AREDS-2 [id number]-pdey-ch-mg Capsule 1 tab PO QAM Referrals Referrals: Theresa Tang DO [Primary Care Provider] - Discharge Problem: Atrial flutter Qualifiers: Atrial flutter type: typical Qualified Code(s): I48.3 - Typical atrial flutter
[2023-08-01 18:20] LABS: Albumin Globulin Ratio 1.5 (0.9-2); Albumin Level 4.1 gm/dl (3.4-5.0); BUN Creatinine Ratio 30.3 (10-20); Bilirubin,Total 0.5 mg/dl (0.2-1.0); Calcium 8.9 mg/dl (8.6-10.3); Creatinine Clr Calc Pharmacy 76.7 ml/min; Est GFR (African American) 94.3 ml/min; Est GFR (Non-African American) 81.3 ml/min; Globulin 2.7 gm/dl (2.5-4.0); Magnesium 1.9 mg/dl (1.7-2.4); Potassium 4.1 mmol/L (3.5-5.1); Total Protein 6.8 gm/dl (6.0-8.3)
--- NOTE | 2023-08-01 18:20 | XRay Report ---
XR chest 1V portable HISTORY: Chest pain, nonspecific COMPARISON: Chest 05/26/2022. FINDINGS: The lungs are clear. Cardiac silhouette is normal in size. No pleural effusions. No pneumot horax. IMPRESSION: No acute process. ACT 112: Negative or not required by law. Electronically signed by: Jordan Mckeon M.D. 08/01/2023 6:18 PM
[2023-08-01 18:26] LABS: Troponin I High Sensitivity 23.9 pg/ml (0-20)
[2023-08-01 18:36] LABS: Thyroid Stimulating Hormone 2.574 uIu/ml (0.300-4.500)
[2023-08-01 19:09] LABS: Adenovirus PCR Not Detected (NotDetected); Bordetella parapertussis PCR Not Detected (NotDetected); Bordetella pertussis PCR Not Detected (NotDetected); Chlamydia pneumoniae PCR Not Detected (NotDetected); Coronavirus 229E PCR Not Detected (NotDetected); Coronavirus CoV-2 (COVID19)PCR Not Detected (NotDetected); Coronavirus HKU1 PCR Not Detected (NotDetected); Coronavirus NL63 PCR Not Detected (NotDetected); Coronavirus OC43PCR Not Detected (NotDetected); Human Metapneumovirus PCR Not Detected (NotDetected); Influenza A PCR Not Detected (NotDetected); Influenza B PCR Not Detected (NotDetected); Mycoplasma pneumoniae PCR Not Detected (NotDetected); Parainfluenza Virus 1 PCR Not Detected (NotDetected); Parainfluenza Virus 2 PCR Not Detected (NotDetected); Parainfluenza Virus 3 PCR Not Detected (NotDetected); Parainfluenza Virus 4 PCR Not Detected (NotDetected); Respiratory Syncytial VirusPCR Not Detected (NotDetected); Rhinovirus/Enterovirus PCR Not Detected (NotDetected)
[2023-08-01] MEDS ORDERED: HEPARIN SOD (PORCINE) 1000 UNIT/ML IV ONE (20:13)
[2023-08-01] MEDS ORDERED: HEPARIN SODIUM/DEXTROSE 25,000 UNITS/500 ML BAG IV SCH (20:15)
[2023-08-01 21:07] LABS: ANTI-Xa, LMWH(Low Molecular Wt < 0.10 IU/ML (< 0.10); Partial Thromboplastin Ratio 0.9; Partial Thromboplastin Time 26 Seconds (21-31); Prothrombin Time 10.9 Seconds (9.0-12.0)
[2023-08-01] MEDS ORDERED: Heparin IV Adult Wt-Based Standard w/ INITIAL Bolus Protocol IV SCH (21:16)
--- NOTE | 2023-08-01 21:27 | History & Physical Report ---
Date of Service August 01, 2023 Assessment & Plan (1) Atrial flutter with controlled response: (2) History of [place] (myocardial infarction): (3) BPH w urinary obs/LUTS: (4) Hyperlipidemia: (5) Hypertension: (6) Coronary artery disease: (7) GERD (gastroesophageal reflux disease): Plan Atrial flutter with controlled response and variable block/CAD/hypertension/history of [place]/history of bradycardia- The patient will be admitted to telemetry for serial cardiac enzymes, serial EKG's, cardiac rhythm monitoring and a 2-D echocardiogram with Dopplers. Troponin 23.9, likely secondary to heart rate Ventricular rate is in the 60s to 70s while in the ED Continue aspirin, but change from bedtime to morning Start standard heparin drip, per protocol with max bolus 3000 Most recent echocardiogram was a stress echo on 08/25/2022, with ejection fraction 55%, revealing no change from 05/07/2020 Patient has had a heart monitor worn in 09/2022, which had shown a 9 beat run of nonsustained V. tach, and several episodes of SVT Patient's primary utility tender carding is Dr. Tu Lee, consult [facility] cardiology Hyperlipidemia- Continue atorvastatin 80 mg at bedtime Anxiety- Alprazolam 0.25 mg p.o. twice daily as needed History of Present Illness Chief Complaint: The patient presents to the emergency department with inability to count his pulse because it was going so fast, after he noticed palpitations earlier this evening. He reports that his pulse did slow down on its own, but he still does not feel right as far as being fatigued and generally weak Primary Care Provider: Theresa Tang DO The patient is a 78-year-old male with a past medical history including history of [place], inguinal hernia, thoracic aortic aneurysm, BPH with LUTS, bradycardia, hypertension, hyperlipidemia, C6 radiculopathy, CAD and GERD. The patient presents to the emergency department after having palpitations, and noting that his pulse was too fast to count. He reports that by the time he got to the emergency department his pulse did become slower, but did have a more irregular beat. He that he still does not feel like himself, feeling tired and generally weak. He reports having had some sinus congestion symptoms for a few days as well. Allergies Allergy/AdvReac Type Severity Reaction Status Date / Time doxycycline Allergy Severe ANAPHYLAXIS Verified 07/16/23 12:49 Home Medications Medication Instructions Recorded Confirmed Type atorvastatin 80 mg tablet 80 mg PO HS #90 tabs 03/14/19 08/02/23 History meclizine 25 mg tablet 25 mg PO QID PRN Dizziness 03/14/19 08/02/23 History aspirin 81 mg tablet,delayed 81 mg PO HS 04/11/19 08/02/23 History release (Aspir-) losartan 25 mg tablet 25 mg PO HS 07/13/19 08/02/23 History vit C 250 mg-vit E 90 mg-zinc 40 2 tab PO QAM 07/13/19 08/02/23 History mg-copper 1 [id number]-[id number] capsule (PreserVision AREDS-2) sildenafil (pulm.hypertension) 20 20 mg PO DAILY PRN sexual activity 01/27/23 08/02/23 Rx mg tablet #30 tabs alprazolam 0.25 mg tablet 0.25 mg PO DAILY PRN anxiety #15 05/07/23 08/02/23 Rx tabs Glucosamine Chondroitin 2 caplet PO 1XD 08/02/23 08/02/23 History turmeric 400 mg capsule 1,500 mg PO 1XD 08/02/23 08/02/23 History Past Med/Surg History Medical History History of [place] (myocardial infarction) Inguinal hernia Thoracic aortic aneurysm BPH w urinary obs/LUTS Arthritis Compressed cervical disc Erectile dysfunction Hiatal hernia GERD (gastroesophageal reflux disease) Coronary artery disease Surgical History Hx of cataract extraction History of esophagogastroduodenoscopy (EGD) History of colonoscopy S/P inguinal hernia repair S/P right knee arthroscopy History of repair of left rotator cuff History of repair of right rotator cuff S/P trigger finger release History of heart artery stent History of cardiac cath Family History Mother Kidney failure Father Congestive heart failure Social History Smoking Status: Former smoker Second Hand Exposure: No; Do You Dip or Chew Tobacco: No; Hx Alcohol Use: Yes Alcohol type: wine Hx Substance Use: No Preferred Language: Wallisian Communication Ability: Effective 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 Beliefs That Will Affect Care: None Current Living Situation: Alone Other Information That Helps Us Care for You: No Feels Safe at Home: Yes Safety Concerns: Feels Safe At This Time Seatbelt Use: always Assistive Devices: Contacts and Glasses Review of Systems Review of Systems: The patient denies chest pain, cough, lower extremity swelling, sore throat, fevers, chills, sweats, nausea, vomiting, diarrhea , constipation, abdominal pain, pelvic pain, blood in urine or stool, dysuria, urinary frequency or urgency, lightheadedness, dizziness, headache, memory loss, loss of consciousness, rash, abnormal bruising or bleeding, imbalance, focal weakness, numbness or tingling in arms or legs, generalized arthralgias or myalgias, back or neck pain, or night sweats. The review of systems is otherwise negative other than for that already noted above, and at least 10 systems have been reviewed. Physical Exam Physical Exam: The patient is awake, alert and oriented 3, well developed and well nourished, normocephalic and atraumatic, lying in bed and in no acute distress. HEENT--PERRL, EOMI, mucous membranes and oropharynx mildly dry. Neck--supple. No JVD. No bruits. Thyroid normal, trachea midline, no adenopathy. Heart--irregular. No murmurs, rubs or gallops. Lungs--clear bilaterally, no respiratory distress, no accessory muscle use. Abdomen--normal bowel sounds and soft. Nontender. Nondistended, no hernias or masses, no organomegaly. Extremities--no cyanosis or clubbing. No edema. There are good distal pulses b/l. Dermatologic--normal skin turgor, normal color, no abnormal lymph nodes, no rash. Neurologic--cranial nerves II through XII grossly intact. Rheumatologic--normal range of motion. Psychiatric--normal affect. Results & Data Results & Data Vital Signs (Past 12 Hours) Vital Signs Temp Pulse Resp BP Pulse Ox O2 Del Method 08/01/23 19:51 37 C 08/01/23 19:47 96 Room Air 08/01/23 19:31 71 16 08/01/23 19:00 68 20 123/82 97 08/01/23 18:56 65 08/01/23 18:30 58 L 16 113/73 95 Room Air 08/01/23 18:00 57 L 16 114/72 96 08/01/23 17:25 93 H 08/01/23 17:09 36.4 C L 90 16 147/80 H 98 Room Air Laboratory Results Laboratory Results WBC 8.48 K/ul (4.8-10.8) 08/01/23 17:40 RBC 5.04 M/uL (4.70-6.10) 08/01/23 17:40 Hgb 15.4 g/dl (14.0-18.0) 08/01/23 17:40 Hct 45.8 % (42.0-52.0) 08/01/23 17:40 MCV 90.9 fL (80.0-100.0) 08/01/23 17:40 MCH 30.6 pg (25.0-34.0) 08/01/23 17:40 MCHC 33.6 g/dL (32.0-36.0) 08/01/23 17:40 RDW Std Deviation 44.0 fL (36.4-46.3) 08/01/23 17:40 RDW Coeff of Belkis 13.2 % (11.5-14.5) 08/01/23 17:40 Plt Count 230 K/uL (130-400) 08/01/23 17:40 MPV 9.8 fL (9.4-12.4) 08/01/23 17:40 Immature Gran % (Auto) 0.4 % 08/01/23 17:40 Neut % (Auto) 50.0 % 08/01/23 17:40 Lymph % (Auto) 33.3 % 08/01/23 17:40 [place] % (Auto) 11.0 % 08/01/23 17:40 Eos % (Auto) 4.8 % 08/01/23 17:40 Baso % (Auto) 0.5 % 08/01/23 17:40 Neut # (Auto) 4.25 K/uL (1.40-6.50) 08/01/23 17:40 Lymph # (Auto) 2.82 K/uL (1.20-3.40) 08/01/23 17:40 [place] # (Auto) 0.93 K/uL (0.11-0.59) H 08/01/23 17:40 Eos # (Auto) 0.41 K/uL (0.00-0.50) 08/01/23 17:40 Baso # (Auto) 0.04 K/uL (0.00-0.20) 08/01/23 17:40 Immature Gran # (Auto) 0.03 K/uL (0.01-0.20) 08/01/23 17:40 PT 10.9 Seconds (9.0-12.0) 08/01/23 17:48 INR 1.0 (0.9-1.1) 08/01/23 17:48 APTT 26 Seconds (21-31) 08/01/23 17:48 PTT Ratio 0.9 08/01/23 17:48 Heparin Anti-Xa, LM Wt < 0.10 IU/ML (< 0.10) 08/01/23 17:48 Sodium 139 mmol/L (136-145) 08/01/23 17:40 Potassium 4.1 mmol/L (3.5-5.1) 08/01/23 17:40 Chloride 106 mmol/L (98-107) 08/01/23 17:40 Carbon Dioxide 28 mmol/L (21-32) 08/01/23 17:40 Anion Gap 5 (3-11) 08/01/23 17:40 BUN 27 mg/dl (6-23) H 08/01/23 17:40 Creatinine 0.89 mg/dl (0.6-1.4) 08/01/23 17:40 Est Cr Clr Drug Dosing 76.7 ml/min 08/01/23 17:40 Est GFR ( Amer) 94.3 ml/min 08/01/23 17:40 Est GFR (Non-Af Amer) 81.3 ml/min 08/01/23 17:40 BUN/Creatinine Ratio 30.3 (10-20) H 08/01/23 17:40 Glucose 110 mg/dl (70-99(Fasting)) H 08/01/23 17:40 Calcium 8.9 mg/dl (8.6-10.3) 08/01/23 17:40 Magnesium 1.9 mg/dl (1.7-2.4) 08/01/23 17:40 Total Bilirubin 0.5 mg/dl (0.2-1.0) 08/01/23 17:40 AST 20 U/L (13-39) 08/01/23 17:40 ALT 22 U/L (7-52) 08/01/23 17:40 Alkaline Phosphatase 144 U/L (34-104) H 08/01/23 17:40 Troponin I High Sens 23.5 pg/ml (0-20) H 08/01/23 19:45 Total Protein 6.8 gm/dl (6.0-8.3) 08/01/23 17:40 Albumin 4.1 gm/dl (3.4-5.0) 08/01/23 17:40 Globulin 2.7 gm/dl (2.5-4.0) 08/01/23 17:40 Albumin/Globulin Ratio 1.5 (0.9-2) 08/01/23 17:40 Lipase 24 U/L (11-82) 08/01/23 17:40 TSH 2.574 uIu/ml (0.300-4.500) 08/01/23 17:40 Adenovirus (PCR) Not Detected (NotDetected) 08/01/23 17:48 B. pertussis DNA (PCR) Not Detected (NotDetected) 08/01/23 17:48 B.parapertussis DNA PCR Not Detected (NotDetected) 08/01/23 17:48 C. pneumoniae DNA (PCR) Not Detected (NotDetected) 08/01/23 17:48 Coronavirus OC43 (PCR) Not Detected (NotDetected) 08/01/23 17:48 Coronavirus HKU1 (PCR) Not Detected (NotDetected) 08/01/23 17:48 Coronavirus 229E (PCR) Not Detected (NotDetected) 08/01/23 17:48 SARS-CoV-2 (PCR) Not Detected (NotDetected) 08/01/23 17:48 Coronavirus NL63 (PCR) Not Detected (NotDetected) 08/01/23 17:48 Human Metapneumovir PCR Not Detected (NotDetected) 08/01/23 17:48 Influenza Type A (PCR) Not Detected (NotDetected) 08/01/23 17:48 Influenza Type B (PCR) Not Detected (NotDetected) 08/01/23 17:48 M. pneumoniae (PCR) Not Detected (NotDetected) 08/01/23 17:48 Parainfluenza 1 (PCR) Not Detected (NotDetected) 08/01/23 17:48 Parainfluenza 2 (PCR) Not Detected (NotDetected) 08/01/23 17:48 Parainfluenza 3 (PCR) Not Detected (NotDetected) 08/01/23 17:48 Parainfluenza 4 (PCR) Not Detected (NotDetected) 08/01/23 17:48 RSV (PCR) Not Detected (NotDetected) 08/01/23 17:48 Entero/Rhino (PCR) Not Detected (NotDetected) 08/01/23 17:48 Impressions Chest X-Ray 08/01/23 17:28 XR chest 1V portable HISTORY: Chest pain, nonspecific COMPARISON: Chest 05/26/2022. FINDINGS: The lungs are clear. Cardiac silhouette is normal in size. No pleural effusions. No pneumothorax. IMPRESSION: No acute process. ACT 112: Negative or not required by law. Electronically signed by: Jordan Mckeon M.D. 08/01/2023 6:18 PM Code Status & VTE Plan Code Status Full code PG Care Time/CCT Total # of Minutes Spent Total Time Spent with Patient: Total time spent is greater than 50% in coordination of care (as documented) at patient's floor/unit and/or counseling patient: Coding Level of Care Code 64311 INT INP/OBS CARE 3/75MIN Diagnoses Atrial flutter with controlled response I48.92 History of [place] (myocardial infarction) I25.2 BPH w urinary obs/LUTS N40.1; N13.8 Hyperlipidemia E78.5 Hypertension I10 Coronary artery disease I25.10 GERD (gastroesophageal reflux disease) K21.9
[2023-08-01] MEDS: Heparin IV Adult Wt-Based Low-Dose w/ INITIAL Bolus Protocol IV STA (21:41)
[2023-08-01] MEDS: HEPARIN SOD (PORCINE) 1000 UNIT/ML IV ONE (22:08)
[2023-08-01] MEDS: HEPARIN SODIUM/DEXTROSE 25,000 UNITS/500 ML BAG IV SCH (22:09)
[2023-08-01] MEDS: ATORVASTATIN 40 MG TAB PO STA (22:13)
[2023-08-02] MEDS: MELATONIN 3 MG TAB PO PRN (00:30)
[2023-08-02] MEDS ORDERED: ACETAMINOPHEN 325 MG TAB PO PRN (01:34)
[2023-08-02] MEDS ORDERED: NITROGLYCERIN SL 0.4 MG/TAB TAB SL PRN (01:34)
[2023-08-02] MEDS ORDERED: ONDANSETRON INJ 2 MG/ML 2 ML VIAL IV PRN (01:34)
[2023-08-02 05:07] LABS: Basophils # (auto) 0.05 K/uL (0.00-0.20); Basophils % (auto) 0.5 %; Eosinophils # (auto) 0.37 K/uL (0.00-0.50); Hematocrit (blood only) 46.9 % (42.0-52.0); Hemoglobin 15.4 g/dl (14.0-18.0); Immature Granulocytes # (auto) 0.03 K/uL (0.01-0.20); Immature Granulocytes % (auto) 0.3 %; Lymphocytes # (auto) 2.78 K/uL (1.20-3.40); Lymphocytes % (auto) 30.1 %; Mean Corpuscular Hgb Conc 32.8 g/dL (32.0-36.0); Mean Corpuscular Volume 91.2 fL (80.0-100.0); Mean Platelet Volume 10.2 fL (9.4-12.4); Monocytes # (auto) 1.12 K/uL (0.11-0.59); Monocytes % (auto) 12.1 %; Neutrophils # (auto) 4.88 K/uL (1.40-6.50); Platelet Count 237 K/uL (130-400); RDW Coefficient of Variation 13.3 % (11.5-14.5); Red Blood Count 5.14 M/uL (4.70-6.10); White Blood Count 9.23 K/ul (4.8-10.8)
[2023-08-02 05:25] LABS: Calcium 9.1 mg/dl (8.6-10.3); Creatinine Clr Calc Pharmacy 73.5 ml/min; Est GFR (African American) 91.4 ml/min; Est GFR (Non-African American) 78.8 ml/min; Magnesium 2.1 mg/dl (1.7-2.4); Phosphorus 3.5 mg/dl (2.5-4.9); Potassium 4.7 mmol/L (3.5-5.1)
[2023-08-02 05:31] LABS: ANTI-Xa, UFH(UnfractionatedHep 0.62 IU/ml (0.3-0.7)
[2023-08-02] MEDS: ASPIRIN 81 MG ECTAB PO SCH (08:43)
[2023-08-02] MEDS: CEROVITE ADV FORMULA TAB PO SCH (08:43)
--- NOTE | 2023-08-02 09:01 | Cardiology Consultation ---
Date of Consultation August 02, 2023 Assessment & Plan (1) Atrial flutter with controlled response: (2) Wide-complex tachycardia: (3) History of ME (myocardial infarction): (4) Thoracic aortic aneurysm: Plan 78 year old male (1) Atrial fibrillation versus atrial flutter with controlled response: -Patient with new onset irregular pulse rate. His ventricular rate is well- controlled at rest without medication, but anticipate it would increase s ignificantly with aerobic activity. -The patient's baseline resting heart rate is in the 40s to 50s with an ectopic atrial bradycardia noted on outpatient EKG August,. -Morphology of the EKG is certainly consistent with organized atrial activity, however not certain that this is a typical right-sided atrial flutter and EKG tracings may demonstrate an atypical flutter or coarse atrial fibrillation may be the most the rhythm. The patient's [id number] score=4 for risk factors of age of 78 (2 points) , HTN, and CAD, predicting moderate to high risk of cardioembolic stroke. At present patient is anticoagulated with unfractionated heparin with plan to likely transition to Eliquis once his procedural course is more clear. Start low-dose metoprolol to tartrate 12.5 mg twice daily for acute rate control. Discussion with the patient with regards to ablation. I am going to review his EKG with my colleagues from electrophysiology. It was felt that he has a right- sided atrial flutter, and may be warranted to consider tricuspid isthmus ablation while he is in the arrhythmia. Otherwise was prudent course of action given his significant symptoms would be to proceed with DON guided direct- current cardioversion. He has been in the rhythm for less than 24 hours right now subjectively, but I am concerned that he could have been having episodes of this otherwise that were previously on captured. (2) Wide-complex tachycardia: -Review of telemetry overnight last night revealed 2 episodes of a wide-complex tachycardia. There was a 10 beat run at 2:10 AM and a 7 beat run at 12:58 AM. -These events appear similar to that which was noted on the previous Zio patch monitor. -Ischemic workup a year ago was negative. (3) History of ME (myocardial infarction): -Little bit couple sips stable findings on echocardiogram. Continue chronic treatment aspirin, atorvastatin (4) Thoracic aortic aneurysm: Previously noted 4.4 cm ascending thoracic diameter. Not visualized on the echocardiogram performed today, but stable on previous. I spent a total of 55 minutes on the date of service in preparation, delivery, and documentation of the care provided to this patient, excluding any time spent in the performance of separately billed services. History of Present Illness Attending Physician: Keith Kramer DO History of Present Illness Mr Oropeza is a 78 year old male seen in cardiology consultation per the request of Dr Lehman for the evaluation of subjective palpitations with findings of new onset atrial fibrillation / flutter. Patient seen in the emergency department as a telemetry overflow, room C7. He has a longstanding patient of Dr. Lee of our practice. His initial heart attack event took place in 2006 while in [place]. Patient notes that yesterday 08/01/2023 at 4 PM he felt generalized tiredness. He took his radial pulse and noted a rapid and irregular pulse. He rested in bed for a few minutes and took his pulse again and the heart rate was improved, but it was still irregular. He had mild associated dizziness. Denies any chest discomfort. Denies ortiz syncope. Denies shortness of breath. He owns a home in [place] and had been seen in the emergency room there on 07/05/2023 for chest discomfort. His workup was negative at that time, and was felt that perhaps the symptoms were related to GI etiology with his history of hiatal hernia and his poor diet that day while watching college football. Cardiac History: 1. History of coronary heart disease status postacute anterior wall myocardial infarction in September, treated with emergent stenting of the left anterior descending artery with course initially complicated by low-flow state and insertion of intra-aortic balloon pump. There has been interval normalization of the left ventricular systolic function with a chronic apical scar noted on previous echocardiograms 2. Repeat diagnostic cardiac catheterization May, with patent stent and no obstructive disease elsewhere 3. Chronic sinus bradycardia 4. Dyslipidemia with elevated triglycerides 5. Hypertension 6. Dilatation of the proximal ascending aorta, 4.4 cm -Zio patch monitor performed as an outpatient in September, Monitor was worn for 7 days. The predominant rhythm was sinus rhythm and sinus bradycardia with average rate of 57 bpm. 2 brief episodes of wide-complex tachycardia consistent with nonsustained ventricular tachycardia were observed, the longest of which was 9 beats in duration and was observed on 09/24/2022 at 4:05 AM. Patient triggered event was submitted to correlate with sinus rhythm in the 70s. -Continue relatively brief episodes of supraventricular tachycardia were observed, the longest of which was 19 beats in duration -EKG performed as an outpatient dated 08/21/2022 Ectopic atrial bradycardia at 42 bpm, progression consistent with history of previous anterior infarct Exercise stress echocardiogram-performed 08/19/2022: The test was negative for ischemia with a fixed apical wall motion abnormality and normal augmentation of the remaining myocardial segments. At high workload was achieved, 8 minutes 19 seconds, 10.10 METS, PVCs noted in the post exercise recovery interval, with ventricular bigeminy Resting echo revealed normal LVEF 55% with apical wall motion abnormality. Proximal ascending aorta diameter 4.4 cm. Aortic valve sclerosis without stenosis Allergies Allergy/AdvReac Type Severity Reaction Status Date / Time doxycycline Allergy Severe ANAPHYLAXIS Verified 07/16/23 12:49 Home Medications Medication Instructions Recorded Confirmed Type atorvastatin 80 mg tablet 80 mg PO HS #90 tabs 03/14/19 08/02/23 History meclizine 25 mg tablet 25 mg PO QID PRN Dizziness 03/14/19 08/02/23 History aspirin 81 mg tablet,delayed 81 mg PO HS 04/11/19 08/02/23 History release (Aspir-) losartan 25 mg tablet 25 mg PO HS 07/13/19 08/02/23 History vit C 250 mg-vit E 90 mg-zinc 40 2 tab PO QAM 07/13/19 08/02/23 History mg-copper 1 [id number] capsule (PreserVision AREDS-2) sildenafil (pulm.hypertension) 20 20 mg PO DAILY PRN sexual activity 01/27/23 08/02/23 Rx mg tablet #30 tabs alprazolam 0.25 mg tablet 0.25 mg PO DAILY PRN anxiety #15 05/07/23 08/02/23 Rx tabs Glucosamine Chondroitin 2 caplet PO 1XD 08/02/23 08/02/23 History turmeric 400 mg capsule 1,500 mg PO 1XD 08/02/23 08/02/23 History Patient History Medical History History of ME (myocardial infarction) Inguinal hernia Thoracic aortic aneurysm BPH w urinary obs/LUTS Arthritis Left thumb Compressed cervical disc Erectile dysfunction Hiatal hernia GERD (gastroesophageal reflux disease) hx - no problems recently. Coronary artery disease Surgical History Hx of cataract extraction LT. History of esophagogastroduodenoscopy (EGD) History of colonoscopy S/P inguinal hernia repair S/P right knee arthroscopy History of repair of left rotator cuff x2 History of repair of right rotator cuff x3 S/P trigger finger release left History of heart artery stent x2 (LAD 100% blockage placed 2 bare metal stents) History of cardiac cath 2007 Family History Mother Kidney failure Father Congestive heart failure Social History Smoking Status: Former smoker Second Hand Exposure: No; Do You Dip or Chew Tobacco: No; Hx Alcohol Use: Yes Alcohol type: wine Hx Substance Use: No Preferred Language: Montenegrin Communication Ability: Effective 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 Beliefs That Will Affect Care: None Current Living Situation: Alone Other Information That Helps Us Care for You: No Feels Safe at Home: Yes Safety Concerns: Feels Safe At This Time Seatbelt Use: always Assistive Devices: Contacts and Glasses Review of Systems Review of Systems: All systems reviewed & are unremarkable except as noted in HPI & below Physical Exam Constitutional: WD/WN, vitals as above Eyes: PERRL, conjunctivae normal, anicteric sclerae Respiratory: normal respiratory effort, lungs clear to auscultation Cardiovascular: Rate/Rhythm: + irregularly irregular Heart Sounds: no murmur Vessels: no JVD Extremities: no edema Gastrointestinal (Abdomen): normal bowel sounds, soft, nontender, no hepatosplenomegaly Neurologic: PERRL, EOMI, accommodation nl, no face palsy, no dysarthria Results & Data Vital Signs (Past 12 Hours) Vital Signs Pulse Pulse Resp BP BP Pulse Ox O2 Del Method 08/02/23 07:16 70 08/02/23 04:29 79 16 121/70 99 Room Air 08/02/23 02:10 80 08/02/23 01:34 66 18 153/67 H 97 Room Air 08/02/23 00:53 85 08/02/23 00:36 127/87 01/28/24 00:36 78 19 96 08/01/23 23:30 147/104 H 08/01/23 23:30 65 21 95 08/01/23 23:00 138/95 08/01/23 23:00 67 17 95 08/01/23 22:59 66 08/01/23 22:30 65 19 98 08/01/23 22:30 128/86 08/01/23 22:22 134/98 08/01/23 22:22 91 H 17 08/01/23 22:00 71 20 116/77 97 Room Air Laboratory Results Cardiac Enzymes 08/01/23 08/01/23 Range/Units 17:40 19:45 AST 20 (13-39) U/L Troponin I High Sens 23.9 H 23.5 H (0-20) pg/ml Coagulation 08/01/23 Range/Units 17:48 PT 10.9 (9.0-12.0) Seconds APTT 26 (21-31) Seconds CBC 08/01/23 08/02/23 Range/Units 17:40 04:18 WBC 8.48 9.23 (4.8-10.8) K/ul RBC 5.04 5.14 (4.70-6.10) M/uL Hgb 15.4 15.4 (14.0-18.0) g/dl Hct 45.8 46.9 (42.0-52.0) % Plt Count 230 237 (130-400) K/uL Neut # (Auto) 4.25 4.88 (1.40-6.50) K/uL Lymph # (Auto) 2.82 2.78 (1.20-3.40) K/uL [place] # (Auto) 0.93 H 1.12 H (0.11-0.59) K/uL Eos # (Auto) 0.41 0.37 (0.00-0.50) K/uL Baso # (Auto) 0.04 0.05 (0.00-0.20) K/uL Comprehensive Metabolic Panel 08/01/23 08/02/23 Range/Units 17:40 04:18 Sodium 139 140 (136-145) mmol/L Potassium 4.1 4.7 (3.5-5.1) mmol/L Chloride 106 107 (98-107) mmol/L Carbon Dioxide 28 28 (21-32) mmol/L BUN 27 H 23 (6-23) mg/dl Creatinine 0.89 0.92 (0.6-1.4) mg/dl Glucose 110 H 102 H (70-99(Fasting)) mg/dl Calcium 8.9 9.1 (8.6-10.3) mg/dl AST 20 (13-39) U/L ALT 22 (7-52) U/L Alkaline Phosphatase 144 H (34-104) U/L Total Protein 6.8 (6.0-8.3) gm/dl Albumin 4.1 4.0 (3.4-5.0) gm/dl Diagnostic Findings Echocardiogram performed today 05/25/2024 and interpret independently: There is a moderate-sized apical and anterior wall motion abnormality with hypokinesis to akinesis of the segments, LVEF in the range of 50-55%. Mild left atrial enlargement noted Moderate aortic valve sclerosis without stenosis Aortic root diameter is normal The proximal ascending aorta is not visualized adequately enough to allow for measurement. No significant valvular disease. EKG performed 08/01/2023 at 1723: Atrial fibrillation versus atrial flutter at 64 bpm with age-indeterminate anterior infarct pattern, Q waves noted in leads V3, V4, V5, V6. Repeat tracing performed 08/02/2023 at 10:10 AM and interpret independently: Atrial fibrillation versus atrial flutter 81 bpm, infarct pattern with Q waves as noted on the previous tracing, no acute repolarization abnormalities
--- NOTE | 2023-08-02 09:59 | Electrocardiogram Report ---
Test Reason : Blood Pressure : / mmHG Vent. Rate : 064 BPM Atrial Rate : 264 BPM P-R Int : 000 ms QRS Dur : 080 ms QT Int : 414 ms P-R-T Axes : 000 073 082 degrees QTc Int : 427 ms Atrial flutter with variable A-V block Anterior infarct (cited on or before 20-APR-2007) Abnormal ECG When compared with ECG of 26-MAY-2022 12:23, Atrial flutter has replaced Sinus rhythm Confirmed by Lester Doll ([id number]) on 08/02/2023 9:59:17 AM Referred By: REFERRED SELF Confirmed By:Lester Doll
[2023-08-02] MEDS: METOPROLOL TARTRATE 25 MG TAB PO SCH (11:24)
[2023-08-02 13:07] LABS: ANTI-Xa, UFH(UnfractionatedHep 0.78 IU/ml (0.3-0.7)
--- NOTE | 2023-08-02 14:28 | Hospitalist Progress Note ---
Date of Service August 02, 2023 Assessment & Plan (1) Atrial flutter with controlled response: Plan: #Atrial flutter with controlled response and variable block/CAD/hypertension/history of SD/history of bradycardia New onset, symptomatic Troponin 23.9, peaked, likely secondary to heart rate Echo: EF 50-55%, moderate sized apical and anterior wall motion abnormality Cardiology consulted (Jose Miguel) -Rhythm appears atrial in nature. Afib vs Aflutter. -started on metoprolol 12.5mg bid for acute rate control -cont. heparin drip for now in anticipation of possible procedure - decision to be made on how to proceed. Possible ablation vs DON guided cardioversion. -monitor on tele #CAD #H/o SD -cont. statin, asa #HLD -cont. statin #Anxiety -cont. Alprazolam prn DVT ppx: heparin gtt FEN/GI: HH --> NPO @ midnight Code Status: full Dispo: PCU (2) Wide-complex tachycardia: (3) History of SD (myocardial infarction): (4) Thoracic aortic aneurysm: (5) Hypertension: (6) Coronary artery disease: (7) GERD (gastroesophageal reflux disease): Admission and Anticipated Discharge Date Admission Date: August 02, 2023 Supervising Physician Co-Signing Physician Notes ATTESTATION I also saw the patient and confirmed douglass portions of the history and exam. I agree with the impression and plan in the resident documentation, and as summarized below. Upon our early afternoon exam, the patient is lying semireclined in bed. He has no complaints. He has been seen by cardiology. EXAM 121/70, 70, 16. Afebrile. 96% on room air. Alert and oriented. No distress appreciated. Heart irregularly irregular. No murmurs appreciated. Lungs clear throughout with nonlabored respirations. No peripheral edema appreciated DATA Labs Hemoglobin 15.4, platelet count 237 Sodium 140, potassium 4.7, BUN 23, creatinine 0.92 Imaging Chest x-ray upon admission shows no acute process. IMPRESSION & PLAN Atrial fibrillation versus atrial flutter, rate controlled Cardiology consultation appreciated Remains on intravenous heparin until course determined (ablation versus cardioversion versus medical management) Tolerating low-dose beta-beatriz Additional per resident documentation Subjective Patient seen at bedside. Doing well, no complaints. Denies chest pain, sob, headache, abd pain, N/V/D, dysuria. Review of Systems Review of Systems: All systems reviewed & are unremarkable except as noted in HPI & below Physical Exam Physical Exam: Constitutional: in no acute distress, pleasant and normal affect, intact memory. AOx3. Vitals as above. HEENT: No scleral injection or discharge. Moist mucous membranes. Neck: Supple without lymphadenopathy or thyromegaly. Trachea midline. Lungs: Clear to auscultation bilaterally with good effort. No wheezes/rales/rhonchi. Cardiac: Irregularly irregular. No murmurs.No lower extremity edema. 2+ distal peripheral pulses. Abdomen: Soft, nontender, and nondistended.No guarding. No hepatosplenomegaly. MSK: No cyanosis or clubbing. Skin: No rashes, warm, dry. Neurologic: no focal deficits Results & Data Results & Data Vital Signs (Past 12 Hours) Vital Signs Pulse Pulse Resp BP Pulse Ox Pulse Ox O2 Del Method 08/02/23 10:00 96 08/02/23 07:16 70 08/02/23 04:29 79 16 121/70 99 Room Air O2 Del Method O2 Flow Rate 08/02/23 10:00 Room Air 0 08/02/23 07:16 08/02/23 04:29 Laboratory Results 08/02/23 08/02/23 08/01/23 Range/Units 10:29 04:18 19:45 WBC 9.23 (4.8-10.8) K/ul RBC 5.14 (4.70-6.10) M/uL Hgb 15.4 (14.0-18.0) g/dl Hct 46.9 (42.0-52.0) % MCV 91.2 (80.0-100.0) fL MCH 30.0 (25.0-34.0) pg MCHC 32.8 (32.0-36.0) g/dL RDW Std Deviation 45.0 (36.4-46.3) fL RDW Coeff of [place] 13.3 (11.5-14.5) % Plt Count 237 (130-400) K/uL MPV 10.2 (9.4-12.4) fL Immature Gran % (Auto) 0.3 % Neut % (Auto) 53.0 % Lymph % (Auto) 30.1 % [place] % (Auto) 12.1 % Eos % (Auto) 4.0 % Baso % (Auto) 0.5 % Neut # (Auto) 4.88 (1.40-6.50) K/uL Lymph # (Auto) 2.78 (1.20-3.40) K/uL [place] # (Auto) 1.12 H (0.11-0.59) K/uL Eos # (Auto) 0.37 (0.00-0.50) K/uL Baso # (Auto) 0.05 (0.00-0.20) K/uL Immature Gran # (Auto) 0.03 (0.01-0.20) K/uL PT (9.0-12.0) Seconds INR (0.9-1.1) APTT (21-31) Seconds PTT Ratio Heparin Anti-Xa, LM Wt (< 0.10) IU/ML Heparin Anti-Xa, Unfract 0.78 H* 0.62 (0.3-0.7) IU/ml Sodium 140 (136-145) mmol/L Potassium 4.7 (3.5-5.1) mmol/L Chloride 107 (98-107) mmol/L Carbon Dioxide 28 (21-32) mmol/L Anion Gap 5 (3-11) BUN 23 (6-23) mg/dl Creatinine 0.92 (0.6-1.4) mg/dl Est Cr Clr Drug Dosing 73.5 ml/min Est GFR ( Amer) 91.4 ml/min Est GFR (Non-Af Amer) 78.8 ml/min BUN/Creatinine Ratio 25.0 H (10-20) Glucose 102 H (70-99(Fasting)) mg/dl Calcium 9.1 (8.6-10.3) mg/dl Phosphorus 3.5 (2.5-4.9) mg/dl Magnesium 2.1 (1.7-2.4) mg/dl Total Bilirubin (0.2-1.0) mg/dl AST (13-39) U/L ALT (7-52) U/L Alkaline Phosphatase (34-104) U/L Troponin I High Sens 23.5 H (0-20) pg/ml Total Protein (6.0-8.3) gm/dl Albumin 4.0 (3.4-5.0) gm/dl Globulin (2.5-4.0) gm/dl Albumin/Globulin Ratio (0.9-2) Lipase (11-82) U/L TSH (0.300-4.500) uIu/ml Adenovirus (PCR) (NotDetected) B. pertussis DNA (PCR) (NotDetected) B.parapertussis DNA PCR (NotDetected) C. pneumoniae DNA (PCR) (NotDetected) Coronavirus OC43 (PCR) (NotDetected) Coronavirus HKU1 (PCR) (NotDetected) Coronavirus 229E (PCR) (NotDetected) SARS-CoV-2 (PCR) (NotDetected) Coronavirus NL63 (PCR) (NotDetected) Human Metapneumovir PCR (NotDetected) Influenza Type A (PCR) (NotDetected) Influenza Type B (PCR) (NotDetected) M. pneumoniae (PCR) (NotDetected) Parainfluenza 1 (PCR) (NotDetected) Parainfluenza 2 (PCR) (NotDetected) Parainfluenza 3 (PCR) (NotDetected) Parainfluenza 4 (PCR) (NotDetected) RSV (PCR) (NotDetected) Entero/Rhino (PCR) (NotDetected) 08/01/23 08/01/23 Range/Units 17:48 17:40 WBC 8.48 (4.8-10.8) K/ul RBC 5.04 (4.70-6.10) M/uL Hgb 15.4 (14.0-18.0) g/dl Hct 45.8 (42.0-52.0) % MCV 90.9 (80.0-100.0) fL MCH 30.6 (25.0-34.0) pg MCHC 33.6 (32.0-36.0) g/dL RDW Std Deviation 44.0 (36.4-46.3) fL RDW Coeff of [place] 13.2 (11.5-14.5) % Plt Count 230 (130-400) K/uL MPV 9.8 (9.4-12.4) fL Immature Gran % (Auto) 0.4 % Neut % (Auto) 50.0 % Lymph % (Auto) 33.3 % [place] % (Auto) 11.0 % Eos % (Auto) 4.8 % Baso % (Auto) 0.5 % Neut # (Auto) 4.25 (1.40-6.50) K/uL Lymph # (Auto) 2.82 (1.20-3.40) K/uL [place] # (Auto) 0.93 H (0.11-0.59) K/uL Eos # (Auto) 0.41 (0.00-0.50) K/uL Baso # (Auto) 0.04 (0.00-0.20) K/uL Immature Gran # (Auto) 0.03 (0.01-0.20) K/uL PT 10.9 (9.0-12.0) Seconds INR 1.0 (0.9-1.1) APTT 26 (21-31) Seconds PTT Ratio 0.9 Heparin Anti-Xa, LM Wt < 0.10 (< 0.10) IU/ML Heparin Anti-Xa, Unfract (0.3-0.7) IU/ml Sodium 139 (136-145) mmol/L Potassium 4.1 (3.5-5.1) mmol/L Chloride 106 (98-107) mmol/L Carbon Dioxide 28 (21-32) mmol/L Anion Gap 5 (3-11) BUN 27 H (6-23) mg/dl Creatinine 0.89 (0.6-1.4) mg/dl Est Cr Clr Drug Dosing 76.7 ml/min Est GFR ( Amer) 94.3 ml/min Est GFR (Non-Af Amer) 81.3 ml/min BUN/Creatinine Ratio 30.3 H (10-20) Glucose 110 H (70-99(Fasting)) mg/dl Calcium 8.9 (8.6-10.3) mg/dl Phosphorus (2.5-4.9) mg/dl Magnesium 1.9 (1.7-2.4) mg/dl Total Bilirubin 0.5 (0.2-1.0) mg/dl AST 20 (13-39) U/L ALT 22 (7-52) U/L Alkaline Phosphatase 144 H (34-104) U/L Troponin I High Sens 23.9 H (0-20) pg/ml Total Protein 6.8 (6.0-8.3) gm/dl Albumin 4.1 (3.4-5.0) gm/dl Globulin 2.7 (2.5-4.0) gm/dl Albumin/Globulin Ratio 1.5 (0.9-2) Lipase 24 (11-82) U/L TSH 2.574 (0.300-4.500) uIu/ml Adenovirus (PCR) Not Detected (NotDetected) B. pertussis DNA (PCR) Not Detected (NotDetected) B.parapertussis DNA PCR Not Detected (NotDetected) C. pneumoniae DNA (PCR) Not Detected (NotDetected) Coronavirus OC43 (PCR) Not Detected (NotDetected) Coronavirus HKU1 (PCR) Not Detected (NotDetected) Coronavirus 229E (PCR) Not Detected (NotDetected) SARS-CoV-2 (PCR) Not Detected (NotDetected) Coronavirus NL63 (PCR) Not Detected (NotDetected) Human Metapneumovir PCR Not Detected (NotDetected) Influenza Type A (PCR) Not Detected (NotDetected) Influenza Type B (PCR) Not Detected (NotDetected) M. pneumoniae (PCR) Not Detected (NotDetected) Parainfluenza 1 (PCR) Not Detected (NotDetected) Parainfluenza 2 (PCR) Not Detected (NotDetected) Parainfluenza 3 (PCR) Not Detected (NotDetected) Parainfluenza 4 (PCR) Not Detected (NotDetected) RSV (PCR) Not Detected (NotDetected) Entero/Rhino (PCR) Not Detected (NotDetected) Resident Activity Tracking Resident Involvement: Resident Care Provided Care Provided: Adult Hospital Medicine
[2023-08-02 15:42] LABS: ANTI-Xa, UFH(UnfractionatedHep 0.81 IU/ml (0.3-0.7)
[2023-08-02 20:21] LABS: ANTI-Xa, UFH(UnfractionatedHep 0.73 IU/ml (0.3-0.7)
[2023-08-02] MEDS: ATORVASTATIN 40 MG TAB PO SCH (20:22)
[2023-08-02] MEDS: ALPRAZolam 0.5 MG TABLET PO PRN (21:16)
[2023-08-03 03:28] LABS: Basophils # (auto) 0.05 K/uL (0.00-0.20); Basophils % (auto) 0.5 %; Eosinophils # (auto) 0.34 K/uL (0.00-0.50); Eosinophils % (auto) 3.1 %; Hematocrit (blood only) 44.4 % (42.0-52.0); Hemoglobin 14.8 g/dl (14.0-18.0); Immature Granulocytes # (auto) 0.03 K/uL (0.01-0.20); Immature Granulocytes % (auto) 0.3 %; Lymphocytes # (auto) 3.48 K/uL (1.20-3.40); Lymphocytes % (auto) 31.9 %; Mean Corpuscular Hgb Conc 33.3 g/dL (32.0-36.0); Mean Corpuscular Volume 90.1 fL (80.0-100.0); Monocytes # (auto) 1.22 K/uL (0.11-0.59); Monocytes % (auto) 11.2 %; Neutrophils # (auto) 5.78 K/uL (1.40-6.50); Platelet Count 251 K/uL (130-400); RDW Coefficient of Variation 13.4 % (11.5-14.5); Red Blood Count 4.93 M/uL (4.70-6.10)
[2023-08-03 03:40] LABS: Albumin Level 3.7 gm/dl (3.4-5.0); BUN Creatinine Ratio 25.6 (10-20); Calcium 9.1 mg/dl (8.6-10.3); Creatinine Clr Calc Pharmacy 78.6 ml/min; Est GFR (African American) 95.6 ml/min; Est GFR (Non-African American) 82.5 ml/min; Magnesium 1.9 mg/dl (1.7-2.4); Phosphorus 3.9 mg/dl (2.5-4.9); Potassium 3.7 mmol/L (3.5-5.1)
[2023-08-03 03:58] LABS: ANTI-Xa, UFH(UnfractionatedHep 0.77 IU/ml (0.3-0.7)
--- NOTE | 2023-08-03 07:06 | Anesthesiology Consultation ---
Date of Service August 03, 2023 Assessment & Plan (1) Encounter for pre-operative examination: Chart Review Chart Review: Acceptable Risk for Surgery History Surgery Operation Date: 08/03/23 07:15 Proposed Procedures p Transesophageal Echo w/Anesthesia - Garry Carpio DO s Cardioversion Casting Cleaner w/Anesthesia - Garry Carpio DO Height/Weight Height: 5 ft 10 in Weight: 90.1 kg Allergies Allergy/AdvReac Type Severity Reaction Status Date / Time doxycycline Allergy Severe ANAPHYLAXIS Verified 07/16/23 12:49 Medications Home Medications Medication Instructions Recorded Confirmed Last Taken atorvastatin 80 mg tablet 80 mg PO HS #90 tabs 03/14/19 08/02/23 08/01/23 meclizine 25 mg tablet 25 mg PO QID PRN Dizziness 03/14/19 08/02/23 Unknown aspirin 81 mg tablet,delayed 81 mg PO HS 04/11/19 08/02/23 08/01/23 release (Aspir-) losartan 25 mg tablet 25 mg PO HS 07/13/19 08/02/23 08/01/23 vit C 250 mg-vit E 90 mg-zinc 40 2 tab PO QAM 07/13/19 08/02/23 08/01/23 mg-copper 1 [id number] capsule (PreserVision AREDS-2) sildenafil (pulm.hypertension) 20 20 mg PO DAILY PRN sexual activity 01/27/23 08/02/23 Unknown mg tablet #30 tabs alprazolam 0.25 mg tablet 0.25 mg PO DAILY PRN anxiety #15 05/07/23 08/02/23 Unknown tabs Glucosamine Chondroitin 2 caplet PO 1XD 08/02/23 08/02/23 07/30/23 turmeric 400 mg capsule 1,500 mg PO 1XD 08/02/23 08/02/23 Unknown Active Medications Generic Name Dose Route Start Last Admin Trade Name Freq PRN Reason Stop Dose Admin Alprazolam 0.25 mg 08/02/23 01:51 08/02/23 21:16 Alprazolam 0.5 Mg Tablet PO 09/01/23 01:50 0.25 mg BID PRN Administration anxiety Aspirin 81 mg 08/02/23 09:00 08/02/23 08:43 Aspirin 81 Mg Ectab PO 09/01/23 08:59 81 mg QAM JOSE ALFREDO Administration Atorvastatin Calcium 80 mg 08/02/23 21:00 08/02/23 20:22 Atorvastatin 40 Mg Tab PO 09/01/23 20:59 80 mg HS JOSE ALFREDO Administration Heparin Sodium/Dextrose 25,000 units in 500 mls @ 23 mls/hr 08/01/23 21:30 08/03/23 04:14 Heparin Sodium/Dextrose IV 08/31/23 21:29 1,150 units/hr .[id number] JOSE ALFREDO 23 mls/hr Titration Protocol 1,150 UNITS/HR Melatonin 3 mg 08/02/23 00:20 08/02/23 20:23 Melatonin 3 Mg Tab PO 09/01/23 00:19 3 mg HS PRN Administration Sleep Metoprolol Tartrate 12.5 mg 08/02/23 10:00 08/02/23 20:22 Metoprolol Tartrate 25 Mg Tab PO 09/01/23 09:59 12.5 mg BID JOSE ALFREDO Administration Multivitamins/Minerals 1 tab 08/02/23 09:00 08/02/23 08:43 Cerovite Adv Formula Tab PO 09/01/23 08:59 1 tab QAM JOSE ALFREDO Administration Past Medical History Medical History History of [place] (myocardial infarction) Inguinal hernia Thoracic aortic aneurysm BPH w urinary obs/LUTS Arthritis Left thumb Compressed cervical disc Erectile dysfunction Hiatal hernia GERD (gastroesophageal reflux disease) hx - no problems recently. Coronary artery disease Past Family History Family History Mother Kidney failure Father Congestive heart failure Past Surgical History Surgical History Hx of cataract extraction LT. History of esophagogastroduodenoscopy (EGD) History of colonoscopy S/P inguinal hernia repair S/P right knee arthroscopy History of repair of left rotator cuff x2 History of repair of right rotator cuff x3 S/P trigger finger release left History of heart artery stent x2 (LAD 100% blockage placed 2 bare metal stents) History of cardiac cath 2006 Social History Smoking Status: Former smoker tobacco type: cigarettes Do You Dip or Chew Tobacco: No Hx Alcohol Use: Yes Alcohol type: wine alcohol intake frequency: a few times a week Hx Substance Use: No substance use type: does not use Physical Exam Vital Signs Last Vital Signs Temp 36.4 C L 08/03/23 01:31 Pulse 72 08/03/23 01:31 Resp 18 08/03/23 01:31 BP 107/71 08/03/23 01:31 Pulse Ox 95 08/03/23 01:31 O2 Del Method Room Air 08/03/23 01:31 O2 Flow Rate 0 08/02/23 10:00 Testing Laboratory Results 08/03/23 02:45 08/03/23 02:45 PT 10.9 Seconds (9.0-12.0) 08/01/23 17:48 INR 1.0 (0.9-1.1) 08/01/23 17:48 APTT 26 Seconds (21-31) 08/01/23 17:48 Electrocardiogram Date: 08/03/23 A Flutter Ventricular rate 72 Echocardiogram Date: 08/02/23 EF: 50-55% Valvular Disease: + no significant valvular disease anterior / apical wall motion abnormality Stress Test Date: 08/19/22 Type: exercise no ischemia
--- NOTE | 2023-08-03 07:18 | History & Physical Bridge Note ---
Date of Service August 03, 2023 History & Physical Bridge Note I have examined the patient, reviewed the History & Physical and in the interval since the performance of the History & Physical I have noted the following changes of clinical significance: no changes noted.
[2023-08-03] MEDS ORDERED: Nursing to Pharmacy Communication SCH (07:30)
--- NOTE | 2023-08-03 07:50 | Post Operative Brief Note ---
Cardiology Brief Post Op Date of Surgery August 03, 2023 Pre & Post Diagnosis Operation Date: 08/03/23 07:15 Procedure Preprocedure diagnosis: Rule out left atrial appendage thrombus, symptomatic atrial fibrillation Post procedure diagnosis: No left atrial appendage thrombus, successful conversion to sinus rhythm Transesophageal echocardiogram guided direct-current cardioversion procedure: After informed consent was obtained a timeout was performed the patient was sedated with the assistance of the anesthesia service. A focused, goal-directed transesophageal echocardiogram was performed for strati fication. There was no left atrial or left atrial appendage thrombus. Direct-current cardioversion was then performed with the patient receiving 200 J of biphasic energy with successful conversion to sinus rhythm in the 70s. Bottom Presser DO Assistant Ismael Guerra, RCS Estimated Blood Loss 0 Findings Consistent with Post-Op Diagnosis as noted above Anesthesia Type MAC Complications none
--- NOTE | 2023-08-03 08:00 | Cardiology Progress Note ---
Date of Service August 03, 2023 Assessment & Plan (1) Atrial fibrillation: (2) Wide-complex tachycardia: (3) History of [place] (myocardial infarction): (4) Thoracic aortic aneurysm: Plan 78 year old male (1) Atrial fibrillation versus atrial flutter with controlled response: -The morphology of the EKG is certainly consistent with organized atrial activity, however overall it is felt that the EKG and telemetry is consistent with atrial fibrillation rather than flutter. The patient's [id number] score=4 for risk factors of age of 78 (2 points) , HTN, and CAD, predicting moderate to high risk of cardioembolic stroke. Will reconsider ongoing treatment with metoprolol after pt receives morning medications. Usually HR is in the 50s when in SR , so may not have room for it moving forward. s/p successful conversion to SR. At 9 am, will discontinue heparin and administer first dose of Eliquis. (2) Wide-complex tachycardia: - 2 episodes of a wide-complex tachycardia early am of 08/02/23. There was a 10 beat run at 2:10 AM and a 7 beat run at 12:58 AM. -These events appear similar to that which was noted on the previous Zio patch monitor. -Ischemic workup a year ago was negative. (3) History of OK (myocardial infarction): -Continue chronic treatment aspirin, atorvastatin (4) Thoracic aortic aneurysm: Previously noted 4.4 cm ascending thoracic diameter. Not visualized on the echocardiogram performed today, but stable on previous. I spent a total of 40 minutes on the date of service in preparation, delivery, and documentation of the care provided to this patient, excluding any time spent in the performance of separately billed services. Admission and Anticipated Discharge Date Admission Date: August 02, 2023 Subjective Mr Oropeza is seen prior to, during, and post DON guided direct current cardioversion. Pt without events overnight last night. Remained in a rate controlled atrial fibrillation. Patient underwent DON guided DCCV with successful conversion to sinus rhythm. Review of Systems Review of Systems: All systems reviewed & are unremarkable except as noted in HPI & below Physical Exam Constitutional: WD/WN, vitals as above Eyes: PERRL, conjunctivae normal, anicteric sclerae Respiratory: normal respiratory effort, lungs clear to auscultation Cardiovascular: Rate/Rhythm: regular rate and regular rhythm Heart Sounds: no murmur Vessels: no JVD Extremities: no edema Gastrointestinal (Abdomen): normal bowel sounds, soft, nontender, no hepatosplenomegaly Neurologic: PERRL, EOMI, accommodation nl, no face palsy, no dysarthria Results & Data Vital Signs (Past 12 Hours) Vital Signs Temp Pulse Pulse Resp BP Pulse Ox O2 Del Method 08/03/23 01:31 36.4 C L 72 18 107/71 95 Room Air 08/02/23 23:24 70 08/02/23 21:19 36.4 C L 74 136/90 96 Room Air Laboratory Results CBC 08/03/23 Range/Units 02:45 WBC 10.90 H (4.8-10.8) K/ul RBC 4.93 (4.70-6.10) M/uL Hgb 14.8 (14.0-18.0) g/dl Hct 44.4 (42.0-52.0) % Plt Count 251 (130-400) K/uL Neut # (Auto) 5.78 (1.40-6.50) K/uL Lymph # (Auto) 3.48 H (1.20-3.40) K/uL Mcduffie # (Auto) 1.22 H (0.11-0.59) K/uL Eos # (Auto) 0.34 (0.00-0.50) K/uL Baso # (Auto) 0.05 (0.00-0.20) K/uL Comprehensive Metabolic Panel 08/03/23 Range/Units 02:45 Sodium 138 (136-145) mmol/L Potassium 3.7 D (3.5-5.1) mmol/L Chloride 107 (98-107) mmol/L Carbon Dioxide 25 (21-32) mmol/L BUN 22 (6-23) mg/dl Creatinine 0.86 (0.6-1.4) mg/dl Glucose 111 H (70-99(Fasting)) mg/dl Calcium 9.1 (8.6-10.3) mg/dl Albumin 3.7 (3.4-5.0) gm/dl Intake and Output 08/02/23 08/03/23 08/03/23 22:59 06:59 14:59 Intake Total 431.7 / 1451.283 194.583 / 1451.283 63.633 / 63.633 Balance 431.7 / 1451.283 194.583 / 1451.283 63.633 / 63.633 Intake: IV 191.7 / 671.283 194.583 / 671.283 63.633 / 63.633 Heparin Sodium/Dextrose 25,000 191.7 / 671.283 194.583 / 671.283 63.633 / 63.633 units In 500 ml @ 1,150 UNITS/ HR 23 mls/hr IV .[id number] [facility] Rx #:[id number] Oral 240 / 780 Other: Other Intake Source Patient is NPO # Unmeasured Voids 1 1 Weight 90.1 kg 90.1 kg Weight Measurement Method Built in [facility] Patient Weight 08/04/23 06:59 Weight 90.1 kg (1) Atrial fibrillation Atrial fibrillation type: persistent (not longstanding) Qualified Code(s): I48.19 - Other persistent atrial fibrillation
--- NOTE | 2023-08-03 08:00 | Hospitalist Progress Note ---
Date of Service August 03, 2023 Assessment & Plan (1) Atrial flutter with controlled response: Plan: #Atrial flutter with controlled response and variable block/CAD/hypertension/history of MA/history of bradycardia New onset, symptomatic Troponin 23.9, peaked, likely secondary to heart rate Echo: EF 50-55%, moderate sized apical and anterior wall motion abnormality Cardiology consulted (Jose Miguel) -Rhythm appears atrial in nature. Afib vs Aflutter. -started on metoprolol 12.5mg bid for acute rate control -cont. heparin drip for now in anticipation of possible procedure - decision to be made on how to proceed. Possible ablation vs DON guided cardioversion. -monitor on tele #CAD #H/o MA -cont. statin, asa #HLD -cont. statin #Anxiety -cont. Alprazolam prn DVT ppx: heparin gtt FEN/GI: HH --> NPO @ midnight Code Status: full Dispo: PCU (2) Wide-complex tachycardia: (3) History of MA (myocardial infarction): (4) Thoracic aortic aneurysm: (5) Hypertension: (6) Coronary artery disease: (7) GERD (gastroesophageal reflux disease): Admission and Anticipated Discharge Date Admission Date: August 02, 2023 Results & Data Results & Data Vital Signs (Past 12 Hours) Vital Signs Temp Pulse Pulse Resp BP Pulse Ox O2 Del Method 08/03/23 01:31 36.4 C L 72 18 107/71 95 Room Air 08/02/23 23:24 70 08/02/23 21:19 36.4 C L 74 136/90 96 Room Air
[2023-08-03] MEDS ORDERED: LIDOCAINE 2% 2 ML VIAL/AMP(20MG/ML) INFIL ONE (08:03)
[2023-08-03] MEDS ORDERED: PROPOFOL IV EMULSION 10 MG/ML 20 ML VIAL IV ONE (08:03)
--- NOTE | 2023-08-03 08:15 | Anesthesiology Progress Note ---
Date of Service August 03, 2023 Anesthesia Post Procedure Vital Signs Vital Signs: Temp Pulse Pulse Resp BP BP Pulse Ox 08/03/23 07:58 36.7 C 18 L 18 93/61 L 95 08/03/23 01:31 36.4 C L 72 18 107/71 95 08/02/23 23:24 70 08/02/23 21:19 36.4 C L 74 136/90 96 08/02/23 19:00 71 08/02/23 18:56 36.4 C L 81 18 119/79 95 08/02/23 17:30 68 22 95 08/02/23 17:00 73 16 95 08/02/23 16:30 73 16 96 08/02/23 16:00 111/73 08/02/23 16:00 68 18 96 08/02/23 15:30 70 94 08/02/23 15:18 15 08/02/23 15:00 70 17 95 08/02/23 14:30 60 24 95 08/02/23 14:00 115/75 08/02/23 14:00 65 21 95 08/02/23 13:43 98/65 L 08/02/23 13:43 72 20 96 08/02/23 13:30 82 14 96 08/02/23 13:00 119 H 15 94 08/02/23 12:30 73 15 93 08/02/23 12:00 70 20 94 08/02/23 12:00 103/59 L 08/02/23 11:30 72 22 95 08/02/23 11:00 72 21 92 08/02/23 10:37 75 19 96 08/02/23 10:37 119/75 08/02/23 10:30 82 16 96 08/02/23 10:08 118 H 20 97 08/02/23 10:00 08/02/23 09:30 77 21 95 08/02/23 09:00 73 18 96 08/02/23 08:30 116 H 21 94 Pulse Ox O2 Del Method O2 Del Method O2 Flow Rate 08/03/23 07:58 Room Air 08/03/23 01:31 Room Air 08/02/23 23:24 08/02/23 21:19 Room Air 08/02/23 19:00 08/02/23 18:56 Room Air 08/02/23 17:30 08/02/23 17:00 08/02/23 16:30 08/02/23 16:00 08/02/23 16:00 08/02/23 15:30 08/02/23 15:18 08/02/23 15:00 08/02/23 14:30 08/02/23 14:00 08/02/23 14:00 08/02/23 13:43 08/02/23 13:43 08/02/23 13:30 08/02/23 13:00 08/02/23 12:30 08/02/23 12:00 08/02/23 12:00 08/02/23 11:30 08/02/23 11:00 08/02/23 10:37 08/02/23 10:37 08/02/23 10:30 08/02/23 10:08 08/02/23 10:00 96 Room Air 0 08/02/23 09:30 08/02/23 09:00 08/02/23 08:30 Transfer of Care Handoff Completed per policy Notes Mental Status: alert / awake / arousable Patient Amnestic to Procedure: Yes Nausea / Vomiting: adequately controlled Pain: adequately controlled Airway Patency, RR, SpO2: stable & adequate BP & HR: stable & adequate Hydration State: stable & adequate Anesthetic Complications: no major complications apparent
--- NOTE | 2023-08-03 09:26 | Electrocardiogram Report ---
Test Reason : Blood Pressure : / mmHG Vent. Rate : 081 BPM Atrial Rate : 081 BPM P-R Int : 160 ms QRS Dur : 078 ms QT Int : 366 ms P-R-T Axes : 086 069 100 degrees QTc Int : 425 ms Atrial flutter with variable A-V block Low voltage QRS Nonspecific T wave abnormality Abnormal ECG When compared with ECG of 01-AUG-2023 17:23, Nonspecific T wave abnormality now evident in Inferior leads Nonspecific T wave abnormality, worse in Lateral leads Confirmed by Lester Doll ([id number]) on 08/03/2023 9:26:33 AM Referred By: REFERRED SELF Confirmed By:Lester Doll
[2023-08-03] MEDS: POTASSIUM CHLORIDE CRTAB 20 MEQ TABCR PO STA (09:42)
[2023-08-03] MEDS: APIXABAN 5 MG TABLET PO SCH (09:42)
[2023-08-03] MEDS: BENZOCAINE/TETRACAIN/BUTAM 50 APPLN/5 GM CAN EXT ONE (09:46)
--- NOTE | 2023-08-03 09:57 | Electrocardiogram Report ---
Test Reason : Blood Pressure : / mmHG Vent. Rate : 072 BPM Atrial Rate : 072 BPM P-R Int : 172 ms QRS Dur : 084 ms QT Int : 424 ms P-R-T Axes : 066 072 088 degrees QTc Int : 464 ms Atrial flutter Cannot rule out Inferior infarct (cited on or before 02-AUG-2023) Anterolateral infarct (cited on or before 20-APR-2007) Abnormal ECG When compared with ECG of 02-AUG-2023 10:10, (unconfirmed) Significant changes have occurred Confirmed by Lester Doll ([id number]) on 08/03/2023 9:57:33 AM Referred By: REFERRED SELF Confirmed By:Lester Doll
--- NOTE | 2023-08-03 11:39 | Electrocardiogram Report ---
Test Reason : Blood Pressure : / mmHG Vent. Rate : 061 BPM Atrial Rate : 061 BPM P-R Int : 212 ms QRS Dur : 080 ms QT Int : 440 ms P-R-T Axes : 029 056 095 degrees QTc Int : 442 ms Sinus rhythm with 1st degree A-V block Anterior infarct (cited on or before 03-AUG-2023) Abnormal ECG When compared with ECG of 03-AUG-2023 05:39, Sinus rhythm has replaced Atrial flutter Confirmed by Lester Doll ([id number]) on 08/03/2023 11:39:34 AM Referred By: REFERRED SELF Confirmed By:Lester Doll
--- NOTE | 2023-08-03 11:51 | Communication Note ---
Date of Service: August 03, 2023 Patient reassessed post DON cardioversion. Feeling well. Remains in sinus rhythm in the 70s. Postprocedure EKG revealed stable findings of sinus rhythm at 61 bpm with first-degree AV block, age-indeterminate anterior infarct pattern which is chronic for him. Plan: Stable for discharge Continue aspirin 81 mg daily, atorvastatin 80 mg daily Hold losartan 25 mg at bedtime at discharge Start metoprolol succinate 12.5 mg daily in the morning Eliquis 5 mg twice daily next dose due tonight at 2100 Arrangements have been made for outpatient general cardiology follow-up with pharmacologic nuclear stress test to take place before hand. A referral has been placed for outpatient electrophysiology consultation. Jesus Carpio DO
--- NOTE | 2023-08-03 12:48 | Discharge Summary ---
Date of Service August 03, 2023 Admission HPI Per Admitting Provider The patient is a 78-year-old male with a past medical history including history of NH, inguinal hernia, thoracic aortic aneurysm, BPH with LUTS, bradycardia, hypertension, hyperlipidemia, C6 radiculopathy, CAD and GERD. The patient presents to the emergency department after having palpitations, and noting that his pulse was too fast to count. He reports that by the time he got to the emergency department his pulse did become slower, but did have a more irregular beat. He that he still does not feel like himself, feeling tired and generally weak. He reports having had some sinus congestion symptoms for a few days as well. Principal Diagnosis Atrial Fibrillation Discharge Exam Constitutional: well-appearing, no acute distress HEENT: NCAT, no conjunctival injection CV: regular rhythm, no murmur appreciated, extremities well-perfused, no LE edema Resp: CTABL, no wheezes/rales/rhonchi appreciated, no increased work of breathing GI: soft, nondistended, nontender MSK: no gross deformities appreciated Skin: warm, dry, no rash appreciated Neuro: alert, oriented, no focal neurologic deficit appreciated Discharge Data Allergies Allergy/AdvReac Type Severity Reaction Status Date / Time doxycycline Allergy Severe ANAPHYLAXIS Verified 07/16/23 12:49 Consultations 08/01/23 19:56 ED Decision to Admit Stat 08/02/23 01:34 Consult Cardiology Routine 08/02/23 12:59 Consult Anesthesiology Routine Procedures Performed Operation Date: 08/03/23 07:15 Actual Procedures p Echo Transesophageal - DO yudith Guerra Echo Color Flow - DO yudith Guerra Echo Doppler Complete - Garry Carpio DO Hospital Course (1) Atrial flutter with controlled response: #Atrial flutter with controlled response and variable block/CAD/hypertension/history of NH/history of bradycardia New onset, symptomatic Troponin 23.9, peaked, likely secondary to heart rate Echo: EF 50-55%, moderate sized apical and anterior wall motion abnormality [facility] -Was cardioverted and prior to d/c was in sinus rhythm in the 70s -started on metoprolol 12.5mg qAM for acute rate control; losartan held due to hypotension -Started on Eliquis 5mg BID - Arrangements have been made by cardiology for outpatient general cardiology follow-up with pharmacologic nuclear stress test to take place before hand. A referral has been placed for outpatient electrophysiology consultation. #CAD #H/o NH -cont. statin, asa #HLD -cont. statin #Anxiety -cont. Alprazolam prn (2) Wide-complex tachycardia: (3) History of NH (myocardial infarction): (4) Thoracic aortic aneurysm: (5) Hypertension: (6) Coronary artery disease: (7) GERD (gastroesophageal reflux disease): Total Time Total Time Spent Total Time Spent (In Minutes): <30 Discharge Plan Discharge Items Patient Disposition: Home - Self-Care Reason For Visit: ATRIAL FLUTTER Discharge Diagnosis: Atrial fibrillation Activity: Per Instructions section Non-emergency contact: Primary Care Provider and Engineering Model Maker Call non-emergency contact if: you have any medication questions and your symptoms worsen Follow-up/Referrals: Garry Carpio DO [Engineering Model Maker] - (Office will call to schedule) Theresa Tang DO [Primary Care Provider] - 08/05/23 3:00 pm Diet: Regular Addtl Attending Provider Instructions: You were admitting for an irregular heart rhythm, called atrial fibrillation. We started you an Eliquis, an anti-coagulant to help decrease the stroke risk in patients with atrial fibration. A prescription will be sent to the pharmacy. You should take the Eliquis twice a day (every 12 hours). You will be due for your next dose at 9pm tonight. Cariology would like you to stop your losartan for the time being. A prescription was sent for metoprolol. You should take this once a day in the morning. You should here from cardiology about a follow-up appointment. Arrangements have been made for outpatient general cardiology follow-up with pharmacologic nuclear stress test to take place before hand. A referral has been placed for outpatient electrophysiology consultation. You should also follow up with your primary care doctor within the next week. If you do not hear from there office with in the next 2 days, you should call them to schedule an appointment. Pending Studies at Discharge: No Stand-Alone Forms: My [employer], Smoking Cessation Medications and DC Order Prescriptions: New metoprolol succinate 25 mg Tablet Extended Release 24 Hr 12.5 mg PO QAM 30 Days Qty: 15 0RF Eliquis 5 mg Tablet 5 mg PO BID 30 Days Qty: 60 0RF Continued sildenafil (pulm.hypertension) 20 mg tablet 20 mg PO DAILY PRN (Reason: sexual activity) Qty: 30 0RF Rx Instructions: take 1 -5 tabs by mouth one hour before intercourse as needed max dose 100mg/day alprazolam 0.25 mg tablet 0.25 mg PO DAILY PRN (Reason: anxiety) Qty: 15 0RF meclizine 25 mg tablet 25 mg PO QID PRN (Reason: Dizziness) atorvastatin 80 mg tablet 80 mg PO HS Qty: 90 aspirin [Aspir-81] 81 mg Tablet,Delayed Release (Dr/Ec) 81 mg PO HS PreserVision AREDS-2 [id number] Capsule 2 tab PO QAM turmeric 400 mg Capsule 1,500 mg PO 1XD Glucosamine Chondroitin capsule 2 caplet PO 1XD Held losartan 25 mg tablet 25 mg PO HS Hold Instructions: Hold until follow up with cardiology and repeat blood pressure check Discharge Orders: Discharge Order (Routine); Ordered 08/03/23 Ordered By: Kerri Felipe Admission Data Admit Date/Time: 08/02/23 00:01 Attending Provider: Harshad Godinez Admit Provider: Paul Lehman Primary Care Provider: Theresa Tang Other Providers: Paul Lehman; Garry Carpio; Demetri Arredondo Other Interventions: Discharge Summary Assessment (RN) Last Done: 08/03/23 13:04 Supervising Physician Co-Signing Physician Notes I personally examined the patient and verified all douglass points of history and exam, discussed case, and agree with decision making with Dr Felipe Feeling better.'s discussed with cardiologysafe/stable for home. Status post cardioversion. Answered patient's questions to the best my ability and to his satisfaction. Vitals noted, in general he is awake and alert pleasant no distress. HEENT normocephalic atraumatic mucous membranes moist. Breathing unlabored no accessory muscle use good effort. Skin shows no rashes no pallor or icterus. A-fib/RVRnow status post cardioversionrate controlled. Anticoagulatedsending home on Eliquis with a coupon, and close outpatient follow-up. Otherwise as above. Resident Activity Tracking Resident Involvement: Resident Care Provided Care Provided: Adult Hospital Medicine
--- NOTE | 2023-08-03 12:54 | Communication Note ---
Date of Service: August 03, 2023 By CMS guidelines, a determination that the admission or continued stay is not medically necessary has been made by a member of the UR committee and a ph ysician for this hospital stay, therefore a Code 44 will be completed and the Inpatient admission will be changed to outpatient.
--- NOTE | 2023-08-03 13:30 | Billing Data ---
Date of Service August 03, 2023 Coding Level of Care Code 09308 IN/OBS DISCH 30 MIN/LESS
[2023-08-04] MEDS ORDERED: METOPROLOL SUCC 25MG EXT REL TAB PO SCH (09:00)
== END 2023-08-03 14:50 | disposition home or self-care (01) ==
LOC: ED 17:08 → INTOOBSV 08-02 00:01 → EDINP 08-02 00:01 → SUATTDRO 08-02 00:01 → 4W 08-02 01:33

== ENCOUNTER 2025-03-07 11:38 | Inpatient (IN) ==
--- NOTE | 2025-03-07 12:03 | Emergency Department Note ---
Impression & Plan Atrial flutter with rapid ventricular response, Palpitation, Intermittent lightheadedness ED Provider Note Name: LEXY GARZA Age: 79 Sex: Male Arrives Via: Walk-In Informant: Patient, ED Provider: Sergio Abreu MD Chief Complaint: Palpitations Impression: As per impressions above Medical Decision Making: Pleasant 79-year-old gentleman with history of paroxysmal A-fib who has required cardioversion in the past. He arrives with 2 to 3 days of worsening lightheadedness and dizziness with palpitations. On arrival he is found to be in a relatively variable a flutter. Blood pressure was good he was in no distress otherwise thus he was given IV fluids and 5 mg IV Lopressor. He was noted shortly after to go into a very slow A-flutter bradycardia with prolonged pauses. Relatively symptomatic over a few minutes with this before resolving. No need for pressors. Laboratory workup otherwise unremarkable. Chest x-ray is okay. Given symptomatic a flutter and difficulty controlling with rate control med I do feel that hospitalization indicated. I reviewed this with cardiology who agreed with plan to bring him in and hospitalist will further evaluate manage. At this point I do not feel patient has any evidence of PE, dissection, ACS, pericarditis/myocarditis. Triage/Nursing Notes reviewed by Me External Chart Review by me: Reviewed the note from 10/13/2024 discussing patient's past medical history Differential:Premature contractions, electrolyte abnormality, cardiac dysrhythmia, thyroid dysfunction, pulmonary embolism, infection, gastrointestinal, as well as other pathologies. Vital Signs: reviewed and remarkable for tachycardia Interventions: Normal Saline bolus 1 L IV, Lopressor 5 mg IV Labs:ED labs Reviewed by me and remarkable for no significant abnormalities Imagin view chest x-ray as per my interpretation no infiltrate or effusion appreciated. EKG:As per my interpretation. Indication palpitations. A flutter with variable rate and PVCs. Overall rate 99 bpm with a QTc of 449. There is no overt ischemic findings. When compared to EKG of August 03, 2023 heart rate has increased and he is no longer in A-fib but rather a flutter. Cardiac/Tele Monitoring: Cardiac Monitoring: An Order was placed for continuous cardiac monitoring. The monitor shows a rate of 105 with a aflutter rhythm. Consults:Discussed with Dr. Stanley of tobacco sorter service who agrees with plan for hospitalization as well as Dr. Godinez of the hospitalist service who will bring in for further management Plan: Disposition:Hospitalization. Condition: Fair History of Present Illness: 79-year-old male arrives for evaluation of palpitations. Patient notes the last 2 to 3 days feeling a bit dizzy with lightheadedness. He has also noticed some increasing pauses in his palpitations. Patient does note that he is been a bit nauseous the last few days as well. It is not fully impacted his appetite and he has been able to eat a few times including this morning around 830. Denies any fevers, chills, syncope, chest pain, vomiting, leg swelling, calf pain, shortness of breath or other concerning signs or symptoms. Patient has a long history of A-fib which is paroxysmal. He has had multiple cardioversions for it. He is on Eliquis 5 mg twice daily which he has not missed any doses as well as 12.5 mg of metoprolol daily. He is scheduled for an ablation but has not yet had it. Past Medical History:See Below Home Medications:See Below Allergies: Anaphylaxis to Doxy Vitals:Blood Pressure: 157/89, Pulse 89, RR 18, T 36.5C, O2 96% on RA Physical Exam: GENERAL: Patient is well appearing and in minimal distress. Dry mucous membranes RESPIRATORY: No dyspnea. Clear to auscultation and equal bilaterally. CARDIOVASCULAR: Regular rate and rhythm.No murmur appreciated. GASTROINTESTINAL: Abdomen soft, non-tender, no peritonitis. EXTREMITIES: Normal motion all extremities, no cyanosis, no edema. NEUROLOGIC: Alert and oriented. No focal neurologic deficits appreciated SKIN: No rash, no jaundice, no diaphoresis. PSYCH: Appropriate GCS: 15 ED Course: Times/Reassessments: Brief episode of feeling unwell post Lopressor as heart rate has significantly decreased which resolved shortly thereafter Sergio Abreu MD Past Med/Surg History Problem List (Updated 03/09/25 @ 08:11 by Sergio Abreu MD) Intermittent lightheadedness (Acute) Palpitation (Acute) Atrial flutter with rapid ventricular response (Acute) Atrial flutter, paroxysmal Paroxysmal atrial fibrillation Tachycardia-bradycardia syndrome Vitamin D deficiency History of smoking Asbestos exposure Atrial fibrillation Wide-complex tachycardia Atrial flutter with controlled response History of SD (myocardial infarction) Inguinal hernia Thoracic aortic aneurysm BPH w urinary obs/LUTS Bradycardia (Acute) Hypertension (Chronic) Hyperlipidemia (Chronic) Cervical radiculopathy at C6 (Acute) Erectile dysfunction Coronary artery disease (Chronic) GERD (gastroesophageal reflux disease) (Acute) hx - no problems recently. Medical History Encounter for pre-operative examination Tachycardia Atrial flutter Arthritis Left thumb Compressed cervical disc Hiatal hernia Surgical History Hx of cataract extraction LT. History of esophagogastroduodenoscopy (EGD) History of colonoscopy S/P inguinal hernia repair S/P right knee arthroscopy History of repair of left rotator cuff x2 History of repair of right rotator cuff x3 S/P trigger finger release left History of heart artery stent x2 (LAD 100% blockage placed 2 bare metal stents) History of cardiac cath 2006 Family History Mother Kidney failure Father Congestive heart failure Social History Smoking Status: Former smoker Tobacco Type: Cigarettes Age Started Using Tobacco: 16; Age Quit Using Tobacco: 30; packs per day: 3; Second Hand Exposure: No; Do You Dip or Chew Tobacco: No; Hx Alcohol Use: Yes (Quite in October 2023) Alcohol type: wine Hx Substance Use: No Preferred Language: Urdu Communication Ability: Effective Rim Technician Required: No Beliefs That Will Affect Care: None Current Living Situation: Alone Current Living Situation Comment: lives at his house Feels Safe at Home: Yes Seatbelt Use: always Assistive Devices: None Allergies Allergies Allergy/AdvReac Type Severity Reaction Status Date / Time doxycycline Allergy Severe ANAPHYLAXIS Verified 03/08/25 13:36 Home Meds Home Medications Medication Instructions Recorded Confirmed atorvastatin 80 mg tablet 80 mg PO HS #90 tabs 03/14/19 03/07/25 meclizine 25 mg tablet 25 mg PO QID PRN Dizziness 03/14/19 03/07/25 aspirin 81 mg tablet,delayed 81 mg PO HS 04/11/19 03/07/25 release (Aspir-) cholecalciferol (vitamin D3) 25 25 mcg PO DAILY 08/05/23 03/07/25 mcg (1,000 unit) capsule apixaban 5 mg tablet 0 mg PO BID 09/15/23 03/07/25 metoprolol succinate 25 mg 12.5 mg PO DAILY 09/15/23 03/07/25 tablet,extended release 24 hr amoxicillin 1 cap PO UD PRN dental work 03/07/25 03/07/25 Previous Rx's Medication Instructions Recorded sildenafil (pulm.hypertension) 20 20 mg PO DAILY PRN sexual activity 01/27/23 mg tablet #30 tabs alprazolam 0.25 mg tablet 0.25 mg PO DAILY PRN anxiety #15 12/14/24 tabs Results & Data (ED) Vital Signs Vital Signs - 24 hr 03/07/25 11:43 Temperature 36.5 C Temperature Source Oral Pulse Rate 89 Respiratory Rate 18 Respiratory Effort / Characteristics Non-Labored Spontaneous Respiratory Depth Normal Blood Pressure 157/89 H Blood Pressure Mean 111 Blood Pressure Position Sitting Pulse Oximetry 96 Oxygen Delivery Method Room Air Sepsis Recent Fever Within 48 Hours No Sepsis New/Unexplained Change in Mental Status No Sepsis Action Taken by Nursing No Action Required Laboratory Data 03/07/25 11:46 03/07/25 11:46 Lab Results 03/07/25 Range/Units 11:46 WBC 7.93 (4.8-10.8) K/ul RBC 5.10 (4.70-6.10) M/uL Hgb 15.2 (14.0-18.0) g/dl Hct 45.9 (42.0-52.0) % MCV 90.0 (80.0-100.0) fL MCH 29.8 (25.0-34.0) pg MCHC 33.1 (32.0-36.0) g/dL RDW Std Deviation 47.8 H (36.4-46.3) fL RDW Coeff of Belkis 14.5 (11.5-14.5) % Plt Count 202 (130-400) K/uL MPV 9.9 (9.4-12.4) fL Immature Gran % (Auto) 0.1 % Neut % (Auto) 48.9 % Lymph % (Auto) 36.2 % Porter % (Auto) 12.6 % Eos % (Auto) 1.9 % Baso % (Auto) 0.3 % Neut # (Auto) 3.88 (1.40-6.50) K/uL Lymph # (Auto) 2.87 (1.20-3.40) K/uL Porter # (Auto) 1.00 H (0.11-0.59) K/uL Eos # (Auto) 0.15 (0.00-0.50) K/uL Baso # (Auto) 0.02 (0.00-0.20) K/uL Immature Gran # (Auto) 0.01 (0.01-0.20) K/uL PT 11.1 (9.0-12.0) Seconds INR 1.0 (0.9-1.1) APTT 27 (21-31) Seconds PTT Ratio 1.0 Sodium 140 (136-145) mmol/L Potassium 4.1 (3.5-5.1) mmol/L Chloride 108 H (98-107) mmol/L Carbon Dioxide 28 (21-32) mmol/L Anion Gap 4 (3-11) BUN 26 H (6-23) mg/dl Creatinine 0.98 (0.6-1.4) mg/dl Est Cr Clr Drug Dosing 64.0 ml/min eGFR 77.95 BUN/Creatinine Ratio 26.5 H (10-20) Glucose 106 H (70-99(Fasting)) mg/dl Calcium 9.4 (8.6-10.3) mg/dl Magnesium 2.2 (1.7-2.4) mg/dl Total Bilirubin 0.8 (0.2-1.0) mg/dl Direct Bilirubin 0.2 (0-0.2) mg/dl AST 29 (13-39) U/L ALT 39 (7-52) U/L Alkaline Phosphatase 130 H (34-104) U/L Troponin I High Sens 19.4 (0-20) pg/ml Total Protein 7.1 (6.0-8.3) gm/dl Albumin 4.2 (3.4-5.0) gm/dl TSH 2.410 (0.300-4.500) uIu/ml Lyme Disease Screen Negative (Negative) Administered Medications Alprazolam (Alprazolam 0.25 Mg Tablet) 0.25 mg PO DAILY PRN PRN Reason: anxiety Stop: 04/06/25 15:23 Last Admin: 03/08/25 20:55 Dose: 0.25 mg Documented By: Admin: 03/07/25 23:52 Dose: 0.25 mg Documented By: REBEKAH Aspirin (Aspirin 81 Mg Ectab) 81 mg PO HS JOSE ALFREDO Stop: 04/06/25 20:59 Last Admin: 03/07/25 21:10 Dose: Not Given Documented By: REBEKAH Atorvastatin Calcium (Atorvastatin 40 Mg Tab) 80 mg PO HS JOSE ALFREDO Stop: 04/06/25 20:59 Last Admin: 03/08/25 20:55 Dose: 80 mg Documented By: Admin: 03/07/25 20:44 Dose: 80 mg Documented By: REBEKAH Vitamin D (Cholecalciferol 25 Mcg (1000 Units) Tab) 25 mcg PO DAILY JOSE ALFREDO Stop: 04/07/25 08:59 Last Admin: 03/08/25 09:29 Dose: 25 mcg Documented By: HILLARY Discontinued Medications Sodium Chloride (Nss) 1,000 mls @ 999 mls/hr IV .Q1H1M ONE Stop: 03/07/25 13:00 Last Infusion: 03/07/25 13:26 Dose: Infused Documented By: Admin: 03/07/25 12:05 Dose: 999 mls/hr Documented By: SCOTT Metoprolol Tartrate (Metoprolol Tartrate 1 Mg/Ml Vial) 5 mg IV NOW STA Stop: 03/07/25 12:01 Last Admin: 03/07/25 12:05 Dose: 5 mg Documented By: SCOTT Discharge Plan Visit Data Chief Complaint: Arrhythmia/Palpitations Stated Complaint: AFIB/DIZZY/ ED Provider: Sergio Abreu Discharge Problem: Atrial flutter with rapid ventricular response, Palpitation, Intermittent lightheadedness Patient Disposition: Admitted As Inpatient Condition: Fair Discharge Instructions Interventions: ED Discharge Assessment Last Done: 03/07/25 14:48
[2025-03-07] MEDS: SODIUM CHLORIDE 0.9% 1,000 ML IV ONE (12:05)
[2025-03-07] MEDS: METOPROLOL TARTRATE 1 MG/ML VIAL IV STA (12:05)
--- NOTE | 2025-03-07 12:14 | XRay Report ---
SINGLE VIEW CHEST CLINICAL HISTORY: Palpitations FINDINGS: 2 AP, portable, upright chest radiographs are compared to study dated 08/01/2023 and correla uli with chest CT dated 04/11/2019. The heart is enlarged. The pulmonary vasculature is noncongested. There is mild bibasilar scarring/atelectasis. The lungs and pleural spaces are otherwise clear. No pn eumothorax is seen. The skeletal structures are osteopenic. The bony thorax is grossly intact. Degene rative change is seen in the shoulders. IMPRESSION: Cardiomegaly with no acute cardiopulmonary abnormality identified. ACT 112: Negative or not required by law. Electronically signed by: Vaibhav Andrade M.D. 03/07/2025 12:13 PM
[2025-03-07 12:19] LABS: Hematocrit (blood only) 45.9 % (42.0-52.0); Hemoglobin 15.2 g/dl (14.0-18.0); Immature Granulocytes # (auto) 0.01 K/uL (0.01-0.20); Immature Granulocytes % (auto) 0.1 %; Mean Corpuscular Hemoglobin 29.8 pg (25.0-34.0); Mean Corpuscular Volume 90.0 fL (80.0-100.0); Platelet Count 202 K/uL (130-400); RDW Standard Deviation 47.8 fL (36.4-46.3); Red Blood Count 5.10 M/uL (4.70-6.10); White Blood Count 7.93 K/ul (4.8-10.8)
[2025-03-07 12:27] LABS: Alanine Aminotransferase 39.0 U/L (7-52); Albumin Level 4.2 gm/dl (3.4-5.0); Alkaline Phosphatase 130.0 U/L (34-104); Anion Gap 4.0 (3-11); Bilirubin,Total 0.8 mg/dl (0.2-1.0); Blood Urea Nitrogen 26.0 mg/dl (6-23); Calcium 9.4 mg/dl (8.6-10.3); Carbon Dioxide 28.0 mmol/L (21-32); Chloride 108.0 mmol/L (98-107); Creatinine Clr Calc Pharmacy 64.0 ml/min; Glucose 106.0 mg/dl (70-99(Fasting)); Magnesium 2.2 mg/dl (1.7-2.4); Potassium 4.1 mmol/L (3.5-5.1); Sodium 140.0 mmol/L (136-145); Total Protein 7.1 gm/dl (6.0-8.3)
[2025-03-07 12:43] LABS: Thyroid Stimulating Hormone 2.41 uIu/ml (0.300-4.500)
[2025-03-07 12:48] LABS: INR 1.0 (0.9-1.1); Partial Thromboplastin Time 27 Seconds (21-31); Prothrombin Time 11.1 Seconds (9.0-12.0)
--- NOTE | 2025-03-07 14:02 | History & Physical Report ---
Date of Service March 07, 2025 Assessment & Plan (1) Atrial fibrillation: (2) Atrial flutter with controlled response: (3) History of CA (myocardial infarction): Plan #Palpitations/atrial fibs/atrial flutterbased on his history it is not entirely clear if his symptoms are due to inappropriate tachycardia, times of bradycardia, or both. Discussed that they would probably have fairly different lines of treatmentespecially given that he is on such a minimal dose of beta-blockade. Discussed at this point we will have cardiology see him but also follow him on monitorfirst in the hospital, and then if the situation is still not clear possibly with ambulatory monitoring. I asked him to be active once he is upstairs so that we can see symptoms with at least a degree of exertion he is able to do in the hospital. He is certainly not unstable at this timecontinue home medications, continue anticoagulation with apixaban. #Coronary artery disease/prior MIappears to be quite stable, no anginal symptoms. He exercises all the time. Continue his metoprolol and atorvastatin and aspirin. #DVT prophylaxisanticoagulated lives at home independently, anticipate this will be the case at time of discharge. He is a full code. History of Present Illness Chief Complaint: palpitations Primary Care Provider: Theresa Tang DO patient is a very pleasant 79-year-old male who comes in with palpitations that have been worsening. He notes that he has had a lot of trouble with his atrial flutterand is set up for an ablation at [facility] in May. He comes in after a few days of worsening symptomsalthough he describes them both as racing at times as well as possibly slow at times. His cardinal symptoms seems to be lightheadednessand at other times notes that if he did not feel his pulse he would not really know anything was going on. He does exercise regularly. Sometimes exercise will improve his rhythms/rates and symptoms. He was given 5 mg of Lopressor and was very bradycardic briefly. Currently feels okay. Allergies Allergy/AdvReac Type Severity Reaction Status Date / Time doxycycline Allergy Severe ANAPHYLAXIS Verified 10/13/24 10:21 Home Medications Medication Instructions Recorded Confirmed Type atorvastatin 80 mg tablet 80 mg PO HS #90 tabs 03/14/19 03/07/25 History meclizine 25 mg tablet 25 mg PO QID PRN Dizziness 03/14/19 03/07/25 History aspirin 81 mg tablet,delayed 81 mg PO HS 04/11/19 03/07/25 History release (Aspir-) sildenafil (pulm.hypertension) 20 20 mg PO DAILY PRN sexual activity 01/27/23 03/07/25 Rx mg tablet #30 tabs cholecalciferol (vitamin D3) 25 25 mcg PO DAILY 08/05/23 03/07/25 History mcg (1,000 unit) capsule apixaban 5 mg tablet 0 mg PO BID 09/15/23 03/07/25 History metoprolol succinate 25 mg 12.5 mg PO DAILY 09/15/23 03/07/25 History tablet,extended release 24 hr alprazolam 0.25 mg tablet 0.25 mg PO DAILY PRN anxiety #15 12/14/24 03/07/25 Rx tabs amoxicillin 1 cap PO UD PRN dental work 03/07/25 03/07/25 History Past Med/Surg History Problem List Vitamin D deficiency History of smoking Asbestos exposure Atrial fibrillation Wide-complex tachycardia Atrial flutter with controlled response History of CA (myocardial infarction) Inguinal hernia Thoracic aortic aneurysm BPH w urinary obs/LUTS Bradycardia (Acute) Hypertension (Chronic) Hyperlipidemia (Chronic) Cervical radiculopathy at C6 (Acute) Erectile dysfunction Coronary artery disease (Chronic) GERD (gastroesophageal reflux disease) (Acute) hx - no problems recently. Medical History Encounter for pre-operative examination Tachycardia Atrial flutter Arthritis Left thumb Compressed cervical disc Hiatal hernia Surgical History Hx of cataract extraction LT. History of esophagogastroduodenoscopy (EGD) History of colonoscopy S/P inguinal hernia repair S/P right knee arthroscopy History of repair of left rotator cuff x2 History of repair of right rotator cuff x3 S/P trigger finger release left History of heart artery stent x2 (LAD 100% blockage placed 2 bare metal stents) History of cardiac cath 2006 Family History Mother Kidney failure Father Congestive heart failure Social History Smoking Status: Never smoker Tobacco Type: Cigarettes Age Started Using Tobacco: 16; Age Quit Using Tobacco: 30; packs per day: 3; Second Hand Exposure: No; Do You Dip or Chew Tobacco: No; Hx Alcohol Use: Yes Alcohol type: wine Hx Substance Use: No Preferred Language: Amharic Communication Ability: Effective Inside Sales Supervisor Required: No Beliefs That Will Affect Care: None Current Living Situation: Alone Feels Safe at Home: Yes Seatbelt Use: always Assistive Devices: None Review of Systems Review of Systems: All systems reviewed & are unremarkable except as noted in HPI & below Physical Exam Physical Exam: In general he is awake alert pleasant no distress. HEENT normocephalic atraumatic mucous membranes moist. Cardio is a little bit erratic on the monitor with rates anywhere from the high 60s to the 110 range, irregularly irregular. No rubs murmurs or gallops. Lungs are overall clear maybe faint rales that clear with a deep breath most consistent with atelectasis no other rales rhonchi or wheezes good effort no accessory muscle use no conversational dyspnea. Skin shows no rashes no pallor or icterus. Neuro without focal deficitscranial nerves II through XII are grossly intact gross motor and sensory are intact. Mental status shows good recent and remote recall normal mood and affect good judgment and insight. Labs and diagnostics noted. Results & Data Results & Data Vital Signs (Past 12 Hours) Vital Signs Temp Pulse Pulse Resp BP BP Pulse Ox 03/07/25 12:20 80 132/90 03/07/25 12:18 81 16 125/91 98 03/07/25 12:18 98 03/07/25 12:05 88 125/91 03/07/25 11:43 97.7 F 89 18 157/89 H 96 O2 Del Method 03/07/25 12:20 03/07/25 12:18 Room Air 03/07/25 12:18 Room Air 03/07/25 12:05 03/07/25 11:43 Room Air Code Status & VTE Plan VTE Prophylaxis Plan VTE Prophylaxis will be ordered: Yes PG Care Time/CCT Total # of Minutes Spent Total Time Spent with Patient: Total time spent is greater than 50% in coordination of care (as documented) at patient's floor/unit and/or counseling patient: Coding Level of Care Code 86966 INT INP/OBS CARE MIN Diagnoses Persistent atrial fibrillation I48.19 Atrial fibrillation type: persistent (not longstanding) Atrial flutter with controlled response I48.92 History of CA (myocardial infarction) I25.2 (1) Atrial fibrillation Atrial fibrillation type: persistent (not longstanding) Qualified Code(s): I48.19 - Other persistent atrial fibrillation
[2025-03-07] MEDS ORDERED: MAGNESIUM HYDROXIDE SUSP 30 ML UDC PO PRN (15:24)
[2025-03-07] MEDS ORDERED: MECLIZINE HCL 25 MG TAB PO PRN (15:24)
[2025-03-07] MEDS ORDERED: ALUMINUM/MAGNESIUM SUSP 30 ML UDC PO PRN (15:24)
[2025-03-07] MEDS ORDERED: ONDANSETRON INJ 2 MG/ML 2 ML VIAL IV PRN (15:24)
[2025-03-07] MEDS ORDERED: ACETAMINOPHEN 325 MG TAB PO PRN (15:24)
[2025-03-07] MEDS ORDERED: POLYETHYLENE (MIRALAX) 17 GM PACK PO PRN (15:24)
[2025-03-07] MEDS ORDERED: MELATONIN 3 MG TAB PO PRN (15:24)
--- NOTE | 2025-03-07 16:09 | Cardiology Consultation ---
Date of Consultation March 07, 2025 Assessment & Plan (1) Paroxysmal atrial fibrillation: (2) Atrial flutter, paroxysmal: (3) Tachycardia-bradycardia syndrome: (4) History of NV (myocardial infarction): Plan 79-year-old male presents with palpitations and possible near syncope. ECG suggestive of atrial fibrillation. History of atrial flutter/fibrillation external direct-current cardioversion in July 2024, and December 2024. Symptoms may be related to both tachycardia and bradycardic events. 7-second pause recorded in the ER after dose of metoprolol. Findings suggest tachy-mirna syndrome. States he is currently scheduled for ablation in [place] May 2025 although details of that procedure are not currently available. Discussed potential need for pacemaker implantation due to significant bradycardic event in the ER as well as symptoms preceding admission. Patient somewhat hesitant at this time. Recommend hold a.m. dose of metoprolol. Eliquis will also be placed on hold. Electrophysiology consultation in AM. Continue telemetry monitoring. 2D echocardiogram in a.m. Scot Stanley DO, [facility] History of Present Illness Reason for Consultation: Atrial flutter, palpitation Requesting Physician: Dr. Harshad Godinez Attending Physician: Harshad Godinez DO History of Present Illness 79-year-old male presents to the emergency department due to palpitations, lightheadedness, and near syncope. Describes working on his computer when he felt as if he may pass out. Notes irregular heartbeat. ECG demonstrating atypical atrial flutter. He received 5 mg of IV metoprolol in the ER with a subsequent 7-second pause. Remains in atrial flutter HR 70-80's currently. Reports longstanding history of low heart rates attributed to athletic activity in his younger years. Remains an active person and attempts to exercise regularly. Denies any functional limitations when in sinus rhythm. Denies overt syncope. No orthopnea, PND, or lower extremity edema. Cardiac Problems: 1. Paroxysmal AFIB (on Eliquis), [id number] 4 (age 1, HTN, CAD) a. Diagnosed in 07/2023 in setting of both URI and taking Cialis the night prior b. Underwent successful DON and cardioversion (08/03/23) 2. Coronary artery disease a. Status post acute NV (September 2006) with emergent stenting of the LAD with initial portion of the course complicated by low flow and IABP augmentation b. Last diagnostic cardiac catheterization (May 2009) with patent stent and no obstructive disease 3. Thoracic aortic aneurysm a. Measured at 4.[address] in 2019 4. Chronic sinus bradycardia 5. HLD 6. HTN Allergies Allergy/AdvReac Type Severity Reaction Status Date / Time doxycycline Allergy Severe ANAPHYLAXIS Verified 10/13/24 10:21 Home Medications Medication Instructions Recorded Confirmed Type atorvastatin 80 mg tablet 80 mg PO HS #90 tabs 03/14/19 03/07/25 History meclizine 25 mg tablet 25 mg PO QID PRN Dizziness 03/14/19 03/07/25 History aspirin 81 mg tablet,delayed 81 mg PO HS 04/11/19 03/07/25 History release (Aspir-) sildenafil (pulm.hypertension) 20 20 mg PO DAILY PRN sexual activity 01/27/23 03/07/25 Rx mg tablet #30 tabs cholecalciferol (vitamin D3) 25 25 mcg PO DAILY 08/05/23 03/07/25 History mcg (1,000 unit) capsule apixaban 5 mg tablet 0 mg PO BID 09/15/23 03/07/25 History metoprolol succinate 25 mg 12.5 mg PO DAILY 09/15/23 03/07/25 History tablet,extended release 24 hr alprazolam 0.25 mg tablet 0.25 mg PO DAILY PRN anxiety #15 12/14/24 03/07/25 Rx tabs amoxicillin 1 cap PO UD PRN dental work 03/07/25 03/07/25 History Patient History Medical History Encounter for pre-operative examination Tachycardia Atrial flutter Arthritis Left thumb Compressed cervical disc Hiatal hernia Surgical History Hx of cataract extraction LT. History of esophagogastroduodenoscopy (EGD) History of colonoscopy S/P inguinal hernia repair S/P right knee arthroscopy History of repair of left rotator cuff x2 History of repair of right rotator cuff x3 S/P trigger finger release left History of heart artery stent x2 (LAD 100% blockage placed 2 bare metal stents) History of cardiac cath 2006 Family History Mother Kidney failure Father Congestive heart failure Social History Smoking Status: Former smoker Tobacco Type: Cigarettes Age Started Using Tobacco: 16; Age Quit Using Tobacco: 30; packs per day: 3; Second Hand Exposure: No; Do You Dip or Chew Tobacco: No; Hx Alcohol Use: Yes (Quite in October 2023) Alcohol type: wine Hx Substance Use: Yes (Quite) Last Used Substance Other:: At least 5 years ago Preferred Language: Botswanan Communication Ability: Effective Embedded Software Developer Required: No Beliefs That Will Affect Care: None Current Living Situation: Alone Current Living Situation Comment: lives at his house Feels Safe at Home: Yes Seatbelt Use: always Assistive Devices: None Review of Systems Review of Systems: All systems reviewed & are unremarkable except as noted in Subjective Physical Exam Constitutional: well nourished; no acute distress Respiratory: + respiratory distress; no labored breat dario and no retractions Auscultation: no crackles, no rales, no rhonchi and no wheezes Cardiovascular: Rate/Rhythm: + irregularly irregular Heart Sounds: normal S1 and normal S2; no murmur Vessels: no JVD and no carotid bruit Extremities: no edema Gastrointestinal (Abdomen): Inspection/Auscultation: normal bowel sounds; abdomen not distended Percussion/Palpation: abdomen soft; abdomen nontender, no guarding and abdomen not rigid Neurologic: CN's II-XI intact bilaterally and moves all extremities; no focal motor deficits Results & Data Vital Signs (Past 12 Hours) Vital Signs Temp Pulse Pulse Resp BP BP Pulse Ox 03/07/25 15:42 36.5 C 91 H 16 111/79 97 03/07/25 15:24 36.5 C 91 H 16 111/79 97 03/07/25 14:48 82 18 119/86 97 03/07/25 14:00 82 18 119/86 99 03/07/25 12:20 80 132/90 03/07/25 12:18 81 16 125/91 98 03/07/25 12:18 98 03/07/25 12:05 88 125/91 03/07/25 11:43 36.5 C 89 18 157/89 H 96 O2 Del Method 03/07/25 15:42 Room Air 03/07/25 15:24 Room Air 03/07/25 14:48 Room Air 03/07/25 14:00 03/07/25 12:20 03/07/25 12:18 Room Air 03/07/25 12:18 Room Air 03/07/25 12:05 03/07/25 11:43 Room Air Laboratory Results Cardiac Enzymes 03/07/25 Range/Units 11:46 AST 29 (13-39) U/L Troponin I High Sens 19.4 (0-20) pg/ml Coagulation 03/07/25 Range/Units 11:46 PT 11.1 (9.0-12.0) Seconds APTT 27 (21-31) Seconds CBC 03/07/25 Range/Units 11:46 WBC 7.93 (4.8-10.8) K/ul RBC 5.10 (4.70-6.10) M/uL Hgb 15.2 (14.0-18.0) g/dl Hct 45.9 (42.0-52.0) % Plt Count 202 (130-400) K/uL Neut # (Auto) 3.88 (1.40-6.50) K/uL Lymph # (Auto) 2.87 (1.20-3.40) K/uL [place] # (Auto) 1.00 H (0.11-0.59) K/uL Eos # (Auto) 0.15 (0.00-0.50) K/uL Baso # (Auto) 0.02 (0.00-0.20) K/uL Comprehensive Metabolic Panel 03/07/25 Range/Units 11:46 Sodium 140 (136-145) mmol/L Potassium 4.1 (3.5-5.1) mmol/L Chloride 108 H (98-107) mmol/L Carbon Dioxide 28 (21-32) mmol/L BUN 26 H (6-23) mg/dl Creatinine 0.98 (0.6-1.4) mg/dl Glucose 106 H (70-99(Fasting)) mg/dl Calcium 9.4 (8.6-10.3) mg/dl Direct Bilirubin 0.2 (0-0.2) mg/dl AST 29 (13-39) U/L ALT 39 (7-52) U/L Alkaline Phosphatase 130 H (34-104) U/L Total Protein 7.1 (6.0-8.3) gm/dl Albumin 4.2 (3.4-5.0) gm/dl Intake and Output 03/07/25 03/07/25 03/07/25 06:59 14:59 22:59 Intake Total 1000 / 1000 Balance 1000 / 1000 Intake: IV 1000 / 1000 Sodium Chloride 0.9% 1,000 ml @ 1000 / 1000 999 mls/hr IV .Q1H1M ONE Rx#: [id number] Other: Weight 84.1 kg 89.3 kg Weight Measurement Method Built in [facility] Built in [facility] Patient Weight 03/08/25 06:59 Weight 89.3 kg PG Care Time/CCT Total # of Minutes Spent Total Time Spent with Patient: Total time spent is greater than 50% in coordination of care (as documented) at patient's floor/unit and/or counseling patient: Coding Level of Care Code 85959 INT INP/OBS CARE 3/75MIN Diagnoses Paroxysmal atrial fibrillation I48.0 Atrial flutter, paroxysmal I48.92 Tachycardia-bradycardia syndrome I49.5 History of NV (myocardial infarction) I25.2
[2025-03-07] MEDS: ASPIRIN 81 MG ECTAB PO SCH (20:44)
[2025-03-07] MEDS: ATORVASTATIN 40 MG TAB PO SCH (20:44)
[2025-03-07] MEDS ORDERED: APIXABAN 5 MG TABLET PO SCH (21:00)
[2025-03-08] MEDS ORDERED: METOPROLOL SUCC 25MG EXT REL TAB PO SCH (09:00)
[2025-03-08] MEDS: CHOLECALCIFEROL 25 MCG (1000 UNITS) TAB PO SCH (09:29)
--- NOTE | 2025-03-08 10:23 | Cardiology Progress Note ---
Date of Service March 08, 2025 Assessment & Plan (1) Paroxysmal atrial fibrillation: (2) Atrial flutter, paroxysmal: (3) Tachycardia-bradycardia syndrome: (4) History of HI (myocardial infarction): Plan 79-year-old male presents with palpitations and possible near syncope, recurrent atrial fibrillation. During admission, multiple pauses and prolonged R to R intervals with reproducible symptoms. patient on metoprolol 12.5 mg daily Evidence of symptomatic tachybrady. Metoprolol on hold this morning. Eliquis on hold. Case discussed with Dr. Curiel this morning. She contacted patient's EP physician, Dr. Garry Bruce in [place]. All in agreement that patient has symptoms of TBS and would benefit from a pacemaker. Recommend dual chamber pacemaker. Patient agreeable. Can resume metoprolol (likely higher dose) and/or consider antiarrhythmic therapy after pacemaker has been inserted. Resume Eliquis post pacemaker as well. Further recommendations pending evaluation with Dr. Stanley and Dr. Curiel Case discussed with Dr. Stanley I spent a total of 60 minutes on the date of service in preparation, delivery, and documentation of the care provided to this patient, excluding any time spent in the performance of separately billed services. Audrey Maki PA-C Department of Cardiology, [facility] This chart was completed in part utilizing Speech Voice Recognition Software. Grammatical errors, random word insertions, pronoun errors, and incomplete sentences are an occasional consequence of this system due to software limitations, ambient noise, and hardware issues. Any formal questions or concerns about the content, text, or information contained within the body of this dictation should be directly addressed to the provider for clarification. Admission and Anticipated Discharge Date Admission Date: March 07, 2025 Supervising Physician Co-Signing Physician Notes I have personally performed a history and physical examination on the patient. I have reviewed the advance practitioner's documentation, and I agree with, and take responsibility for the plan of care. 79-year-old male with paroxysmal atrial fibrillation/flutter and tachy-mirna syndrome. Symptomatic 4-second pause recorded last evening. Patient agreeable to dual-chamber permanent pacemaker implantation. Hold Eliquis this evening. N.p.o. except medications after midnight. Initiate treatment with AV corinne blocking agents post pacemaker implantation. Patient planning atrial fibrillation ablation with reserve operator in [place], scheduled May 2025. I spent a total of 30 minutes on the date of service in preparation, delivery, and documentation of the care provided to this patient, excluding any time spent in the performance of separately billed services. Scot Stanley DO, [facility] Subjective Patient resting comfortably in bed. Significant other at bedside. Ambulating in room this morning. No recurrent symptoms of dizziness or lightheadedness. Last episode was last evening that correlated with 4.5 second pause per nursing staff and review of telemetry. He had multiple pauses of 3.0-3.5 seconds this morning with bradycardia between 6:28 and 6:53 AM but no significant symptoms. No syncope or near syncope. No SOB or CP. Review of Systems Review of Systems: All systems reviewed & are unremarkable except as noted in HPI & below Physical Exam Constitutional: WD/WN, vitals as above well developed; no acute distress Neck: normal visual inspection Respiratory: normal respiratory effort, lungs clear to auscultation no respiratory distress, no labored breathing and no retractions Auscultation: no crackles, no rales, no rhonchi and no wheezes Cardiovascular: Rate/Rhythm: + tachycardic and + irregularly irregular Heart Sounds: no murmur Vessels: no JVD and no carotid bruit Extremities: no edema Gastrointestinal (Abdomen): Inspection/Auscultation: normal bowel sounds; abdomen not distended Percussion/Palpation: abdomen soft; abdomen nontender, no guarding and abdomen not rigid Neurologic: CN's II-XI intact bilaterally and moves all extremities; no focal motor deficits Results & Data Vital Signs (Past 12 Hours) Vital Signs Temp Pulse Pulse Resp BP Pulse Ox O2 Del Method 03/08/25 08:13 36.2 C L 115 H 18 125/80 94 Room Air 03/08/25 07:25 84 03/08/25 03:21 36.4 C L 78 18 97/67 L 97 Room Air 03/07/25 23:45 36.5 C 67 20 96/57 L 97 Room Air Laboratory Results Cardiac Enzymes 03/07/25 Range/Units 11:46 AST 29 (13-39) U/L Troponin I High Sens 19.4 (0-20) pg/ml Coagulation 03/07/25 Range/Units 11:46 PT 11.1 (9.0-12.0) Seconds APTT 27 (21-31) Seconds CBC 03/07/25 Range/Units 11:46 WBC 7.93 (4.8-10.8) K/ul RBC 5.10 (4.70-6.10) M/uL Hgb 15.2 (14.0-18.0) g/dl Hct 45.9 (42.0-52.0) % Plt Count 202 (130-400) K/uL Neut # (Auto) 3.88 (1.40-6.50) K/uL Lymph # (Auto) 2.87 (1.20-3.40) K/uL [place] # (Auto) 1.00 H (0.11-0.59) K/uL Eos # (Auto) 0.15 (0.00-0.50) K/uL Baso # (Auto) 0.02 (0.00-0.20) K/uL Comprehensive Metabolic Panel 03/07/25 Range/Units 11:46 Sodium 140 (136-145) mmol/L Potassium 4.1 (3.5-5.1) mmol/L Chloride 108 H (98-107) mmol/L Carbon Dioxide 28 (21-32) mmol/L BUN 26 H (6-23) mg/dl Creatinine 0.98 (0.6-1.4) mg/dl Glucose 106 H (70-99(Fasting)) mg/dl Calcium 9.4 (8.6-10.3) mg/dl Direct Bilirubin 0.2 (0-0.2) mg/dl AST 29 (13-39) U/L ALT 39 (7-52) U/L Alkaline Phosphatase 130 H (34-104) U/L Total Protein 7.1 (6.0-8.3) gm/dl Albumin 4.2 (3.4-5.0) gm/dl Intake and Output 03/07/25 03/08/25 03/08/25 22:59 06:59 14:59 Intake Total 250 / 1550 300 / 1550 Balance 250 / 1550 300 / 1550 Intake: Oral 250 / 550 300 / 550 Other: Weight 89.3 kg 90.038 kg Weight Measurement Method Built in [facility] Diagnostic Findings Telemetry reviewed: Afib with variable rates ranging 40-130's. Multiple prolonged R to R intervals ranging 3-4.5 seconds. Longest pause was 7 seconds in ER yesterday Echo report reviewed: LVEF 50-55% Mild LVH Moderate sized apical and anteroseptal wall motion abnormality with hypokinesis to akinesis of the segements aortic valve sclerosis moderate without Mild TR No pulm hypertension Medications Administered Current Inpatient Medications Acetaminophen (Acetaminophen 325 Mg Tab) 650 mg PO Q4H PRN PRN Reason: Pain or Fever Stop: 04/06/25 15:23 Al Hydrox/Mg Hydrox/Simethicone (Aluminum/Magnesium Susp 30 Ml Udc) 15 ml PO Q4H PRN PRN Reason: Dyspepsia Stop: 04/06/25 15:23 Alprazolam (Alprazolam 0.25 Mg Tablet) 0.25 mg PO DAILY PRN PRN Reason: anxiety Stop: 04/06/25 15:23 Last Admin: 03/07/25 23:52 Dose: 0.25 mg Aspirin (Aspirin 81 Mg Ectab) 81 mg PO HS JOSE ALFREDO Stop: 04/06/25 20:59 Last Admin: 03/07/25 21:10 Dose: Not Given Atorvastatin Calcium (Atorvastatin 40 Mg Tab) 80 mg PO HS JOSE ALFREDO Stop: 04/06/25 20:59 Last Admin: 03/07/25 20:44 Dose: 80 mg Magnesium Hydroxide (Magnesium Hydroxide Susp 30 Ml Udc) 30 ml PO Q12H PRN PRN Reason: Constipation Stop: 04/06/25 15:23 Meclizine HCl (Meclizine Hcl 25 Mg Tab) 25 mg PO QID PRN PRN Reason: Dizziness Stop: 04/06/25 15:23 Melatonin (Melatonin 3 Mg Tab) 3 mg PO HS PRN PRN Reason: Sleep Stop: 04/06/25 15:23 Metoprolol Succinate (Metoprolol Succ 25mg Ext Rel Tab) 12.5 mg PO DAILY JOSE ALFREDO Stop: 04/07/25 08:59 Ondansetron HCl (Ondansetron Inj 2 Mg/Ml 2 Ml Vial) 4 mg IV Q6H PRN PRN Reason: Nausea Stop: 04/06/25 15:23 Polyethylene Glycol (Polyethylene (Miralax) 17 Gm Pack) 17 gm PO DAILY PRN PRN Reason: Constipation Stop: 04/06/25 15:23 Vitamin D (Cholecalciferol 25 Mcg (1000 Units) Tab) 25 mcg PO DAILY JOSE ALFREDO Stop: 04/07/25 08:59 Last Admin: 03/08/25 09:29 Dose: 25 mcg PG Care Time/CCT Total # of Minutes Spent Total Time Spent with Patient: Total time spent is greater than 50% in coordination of care (as documented) at patient's floor/unit and/or counseling patient: 60 minutes Coding Level of Care Code 98704 SUB INP/OBS CARE 3/50MIN Diagnoses Paroxysmal atrial fibrillation I48.0 Atrial flutter, paroxysmal I48.92 Tachycardia-bradycardia syndrome I49.5 History of HI (myocardial infarction) I25.2
--- NOTE | 2025-03-08 15:35 | Hospitalist Progress Note ---
Date of Service March 08, 2025 Assessment & Plan (1) Atrial fibrillation: Plan: Paroxysmal atrial fibrillation and flutter by history. He currently takes Eliquis which is on hold. Appreciate cardiology consultation and recommendations. Telemetry (2) Tachycardia-bradycardia syndrome: Plan: Telemetry. Metoprolol is on hold. Appreciate cardiology consultation and recommendations. It appears he will require PPM placement (3) Hypertension: Plan: Currently stable. Continue medical management (4) Coronary artery disease: Plan: Previous PCI involving LAD. Previous VT. Cardiac echo reveals ejection fraction of 50% with mild left atrial enlargement. Continue current medical management. Telemetry Plan Hopeful discharge to home within the next day or 2 Admission and Anticipated Discharge Date Admission Date: March 07, 2025 Subjective Alert and oriented. He had a 10 beat run of wide-complex tachycardia that appears to be ventricular tachycardia this morning, March 08. He was asymptomatic. Cardiology consultation appreciated. He had a 7-second pause in the ED after he was given metoprolol. It is suspected that he has tachybradycardia syndrome and will need a permanent cardiac pacemaker. Review of Systems 2 Review of Systems: Constitutionalno fever or chills ENTno blurred vision, no double vision, no epistaxis, no sore throat Respiratoryno cough, no wheezing, no shortness of breath Cardiacno palpitations, no chest pain, no syncope Filipe nausea, vomiting, diarrhea, melena, hematochezia GUno urinary retention, no urinary incontinence, no dysuria, no hematuria Musculoskeletalno joint pain, no muscle tenderness Skinno bruising, no rashes, no pruritus Neurono isolated weakness, no paresthesia, no weakness Psychno depression, no anxiety Physical Exam 2 Physical Exam: General-alert and oriented x3, no fever, no chills HEENT-head atraumatic and normocephalic, pupils equal and reactive to light, extraocular muscles intact Neck-no lymphadenopathy or thyromegaly, trachea midline Chest-clear to auscultation. No rales, wheezing or rhonchi Cardiac-slightly irregular rhythm. Normal rate. Normal S1 and S2 Abdomen-normal bowel sounds, no hepatosplenomegaly Extremities-no cyanosis, clubbing, or edema Neuro-cranial nerves II through XII intact, motor and sensory function within normal limits, strength symmetrical, no focal deficits Psych-normal affect, normal mood Results & Data Results & Data Vital Signs (Past 12 Hours) Vital Signs Temp Pulse Pulse Resp BP BP Pulse Ox 03/08/25 13:10 63 18 117/75 95 03/08/25 12:23 36.9 C 73 18 128/80 95 03/08/25 08:13 36.2 C L 115 H 18 125/80 94 03/08/25 07:25 84 O2 Del Method 03/08/25 13:10 Room Air 03/08/25 12:23 Room Air 03/08/25 08:13 Room Air 03/08/25 07:25 Laboratory Results 03/07/25 11:46 03/07/25 11:46 PG Care Time/CCT Total # of Minutes Spent Total Time Spent with Patient: Total time spent is greater than 50% in coordination of care (as documented) at patient's floor/unit and/or counseling patient: Coding Level of Care Code 71138 SUB INP/OBS CARE 3/50MIN Diagnoses Persistent atrial fibrillation I48.19 Atrial fibrillation type: persistent (not longstanding) Tachycardia-bradycardia syndrome I49.5 Hypertension I10 Coronary artery disease I25.10 (1) Atrial fibrillation Atrial fibrillation type: persistent (not longstanding) Qualified Code(s): I 48.19 - Other persistent atrial fibrillation
--- NOTE | 2025-03-08 16:25 | Electrocardiogram Report ---
Test Reason : Blood Pressure : */* mmHG Vent. Rate : 99 BPM Atrial Rate : 86 BPM P-R Int : 258 ms QRS Dur : 74 ms QT Int : 350 ms P-R-T Axes : 69 72 93 degrees QTcB Int : 449 ms Atrial fibrillation vs atrial flutter and abberant conduction Low voltage QRS Poor R wave progression, consider anterior OR vs. lead placement vs. LVH Abnormal ECG When compared with ECG of 03-Aug-2023 08:08, Vent. rate has increased by 38 bpm Nonspecific T wave abnormality now evident in Inferior leads Confirmed by Gaurav Falcon ([id number]) on 03/08/2025 4:24:58 PM Referred By: REFERRED SELF Confirmed By: Gaurav Falcon
[2025-03-09 07:34] VITALS: RESP 18; TEMP 98.2
--- NOTE | 2025-03-09 07:54 | Pre Anesthesia Assessment ---
Date of Service March 09, 2025 Pre Sedation Assessment Vital Signs Temp Pulse Pulse Pulse Resp BP BP 03/09/25 07:33 36.8 C 67 18 110/63 03/09/25 07:15 60 14 104/76 03/09/25 07:08 80 03/09/25 03:45 36.5 C 77 20 111/79 03/09/25 00:21 36.7 C 98 H 18 110/61 03/08/25 21:54 80 03/08/25 19:53 36.4 C L 81 18 91/57 L 03/08/25 16:05 36.9 C 80 16 125/82 03/08/25 13:10 63 18 117/75 03/08/25 12:23 36.9 C 73 18 128/80 03/08/25 08:13 36.2 C L 115 H 18 125/80 Pulse Ox O2 Del Method 03/09/25 07:33 93 Room Air 03/09/25 07:15 98 Room Air 03/09/25 07:08 03/09/25 03:45 98 Room Air 03/09/25 00:21 92 Room Air 03/08/25 21:54 03/08/25 19:53 95 Room Air 03/08/25 16:05 96 Room Air 03/08/25 13:10 95 Room Air 03/08/25 12:23 95 Room Air 03/08/25 08:13 94 Room Air Cardiovascular + bradycardic and + irregularly irregular Respiratory normal respiratory effort, lungs clear to auscultation Pre-Sedation Airway Assessment Smoking Status: Former smoker Hx Sleep Apnea: No Short, Thick Neck: No Thyromental Distance: > or= 3.5 Finger Breadths Oral Cavity: + WNL Mallampati Class: III ASA: ASA3 NPO Status Date of Last Intake of Fluids: 03/08/25 Time of Last Intake of Fluids: 18:00 Date of Last Intake of Solid Food: 03/08/25 Time of Last Intake of Solid Foods: 18:00 Procedure Planning Contraindications for Sedation: none Current Medications Reviewed: Yes Notes The planned sedation has been discussed with the patient. Informed Consent was obtained. I have identified the patient, determined the appropriateness of sedation and have assessed the patient immediately prior to the procedure. All medicine(s) and interventions are by my order.
--- NOTE | 2025-03-09 07:55 | History & Physical Bridge Note ---
Date of Service March 09, 2025 History & Physical Bridge Note I have examined the patient, reviewed the History & Physical and in the interval since the performance of the History & Physical I have noted the following changes of clinical significance: pt with TBS recommended a pacemaker prior to hospital discharge-discussed procedure and risks and consents signed.
[2025-03-09] MEDS: BUPIVACAINE 0.25% PF 30 ML VIAL ONE (08:23)
[2025-03-09] MEDS: LIDOCAINE 1% LOCAL 20 ML VIAL ONE (08:23)
[2025-03-09] MEDS: VANCOMYCIN HCL 1000MG/20ML VIAL ONE (08:23)
[2025-03-09] MEDS: WATER, STERILE FOR INJ 10 ML VIAL ONE (08:23)
[2025-03-09] MEDS: ceFAZolin 330 MG/ML 1 GM VIAL ONE (08:24)
[2025-03-09] MEDS: MIDAZOLAM HCL 5 MG/ML 1 ML VIAL ONE (09:11)
--- NOTE | 2025-03-09 09:11 | Post Anesthesia Assessment ---
Date of Service March 09, 2025 Post Sedation Assessment Vital Signs Temp Pulse Pulse Pulse Resp BP BP 03/09/25 07:33 36.8 C 67 18 110/63 03/09/25 07:15 60 14 104/76 03/09/25 07:08 80 03/09/25 03:45 36.5 C 77 20 111/79 03/09/25 00:21 36.7 C 98 H 18 110/61 03/08/25 21:54 80 03/08/25 19:53 36.4 C L 81 18 91/57 L 03/08/25 16:05 36.9 C 80 16 125/82 03/08/25 13:10 63 18 117/75 03/08/25 12:23 36.9 C 73 18 128/80 Pulse Ox O2 Del Method 03/09/25 07:33 93 Room Air 03/09/25 07:15 98 Room Air 03/09/25 07:08 03/09/25 03:45 98 Room Air 03/09/25 00:21 92 Room Air 03/08/25 21:54 03/08/25 19:53 95 Room Air 03/08/25 16:05 96 Room Air 03/08/25 13:10 95 Room Air 03/08/25 12:23 95 Room Air Recovery Score Activity: Moves 4 extremities Respiration: Deep Breath/Cough Circulation: +/-20% PreAnes Value Consciousness: Fully Awake Oxygen Saturation: > 92% On Room Air Discharge Sedation Level of Care: Fast Track Phase II Post Sedation Plan On clinical assessment, the patient appears to have tolerated the sedation without complications. Patient is recovering as anticipated. Patient will continue to be monitored by nursing and may be discharged when sedation discharge criteria are met per below protocol. Upon Completions of procedure up to 15 minutes continue every 5 minute vital signs and the P.A.R. score; then discharge to a Phase I or Fast Track to Phase II per the following guidelines: * Discharge Patient to appropriate Phase II area if PAR is 8 or greater or return to pre- procedure baseline. The post - procedure orders will be as directed. * If PAR score is less than 8 or not return to pre-procedure baseline then patient will follow Phase I monitoring till PAR is reached for Phase II. The Phase I may be done in procedure room or may call to secure a Phase I area. * If naloxone or flumazenil are used for reversal, hold in Phase I for continued monitoring from when last reversal dose was given for a minimum of 60 minutes or longer pending the nurse and/or physician discretion of patient condition before discharge to Phase II. Please call the Sedation Physician to re-evaluate and complete post-note for discharge to Phase II area. Do NOT discharge from procedure sedation or Phase 1 until post- sedation evaluation note is complete by procedure /sedation MD Sedation Discharge Instructions to be given to the patient at discharge to home.
--- NOTE | 2025-03-09 11:54 | XRay Report ---
XR chest 1V portable CLINICAL HISTORY: s/p ppm ensure PTX COMPARISON STUDY: 03/07/2025 FINDINGS: The heart is borderline enlarged. There is aortic tortuosity/ectasia. Since the prior study , a left subclavian dual-lumen central venous pacemaker has been placed. No pneumothorax is visualize d. There is no acute parenchymal consolidation. There are no pleural effusions. There is no failure. IMPRESSION: No evidence of pneumothorax status post left subclavian central venous pacemaker placeme nt ACT 112: Negative or not required by law. Electronically signed by: Hi Peck M.D. 03/09/2025 11:52 AM
--- NOTE | 2025-03-09 12:35 | Electrocardiogram Report ---
Test Reason : Blood Pressure : */* mmHG Vent. Rate : 96 BPM Atrial Rate : 326 BPM P-R Int : * ms QRS Dur : 80 ms QT Int : 384 ms P-R-T Axes : * 40 6 degrees QTcB Int : 485 ms Atrial fibrillation with variable A-V block with premature ventricular or aberrantly conducted comple xes Anterolateral infarct (cited on or before 20-Apr-2007) Abnormal ECG When compared with ECG of 07-Mar-2025 11:48, Atrial fibrillation has replaced Sinus rhythm Confirmed by Gaurav Falcon ([id number]) on 03/09/2025 12:34:59 PM Referred By: REFERRED SELF Confirmed By: Gaurav Falcon
[2025-03-09] MEDS: METOPROLOL SUCC 25MG EXT REL TAB PO SCH (13:15)
[2025-03-09] MEDS: APIXABAN 5 MG TABLET PO SCH (13:15)
--- NOTE | 2025-03-09 14:08 | Cardiology Progress Note ---
Date of Service March 09, 2025 Assessment & Plan (1) Paroxysmal atrial fibrillation: (2) Atrial flutter, paroxysmal: (3) Tachycardia-bradycardia syndrome: (4) History of NM (myocardial infarction): (5) S/P cardiac pacemaker procedure: Plan 79-year-old male presents with palpitations and possible near syncope, recurrent atrial fibrillation with TBS Underwent dual chamber pacemaker this morning. tolerated well. Chest xray post procedure without pneumothorax. Recommend resuming eliquis 5 mg BID. first dose now Increase metoprolol to 25 mg BID. In the past he has converted to NSR on his own. He is scheduled for future ablation in [place]. [employer] rep to interrogate device this afternoon and will review instructions for remote monitoring. Would check to be arranged in 7-10 days. Restrictions reviewed. Once device is interrogated, patient may be discharged. Case discussed with Dr. Stanley I spent a total of 30 minutes on the date of service in preparation, delivery, and documentation of the care provided to this patient, excluding any time spent in the performance of separately billed services. Audrey Maki PA-C Department of Cardiology, [facility] This chart was completed in part utilizing Speech Voice Recognition Software. Grammatical errors, random word insertions, pronoun errors, and incomplete sentences are an occasional consequence of this system due to software limitations, ambient noise, and hardware issues. Any formal questions or concerns about the content, text, or information contained within the body of this dictation should be directly addressed to the provider for clarification. Admission and Anticipated Discharge Date Admission Date: March 07, 2025 Supervising Physician Co-Signing Physician Notes I have personally performed a history and physical examination on the patient. I have reviewed the advance practitioner's documentation, and I agree with, and take responsibility for the plan of care. 79-year-old male with paroxysmal atrial fibrillation/flutter and tachy-mirna syndrome. Symptomatic 4-second pause recorded 03/07/2025. Dual-chamber pacemaker implanted this a.m. without complication. Chest x-ray reviewed without evidence of pneumothorax. Recommend titration of Toprol-XL 25 mg twice daily. Resume Eliquis this evening. Pacemaker wound check in 1 week postdischarge. Clinical general cardiology evaluation in 2 to 4 weeks for reassessment of symptoms. Consider proceeding with repeat direct-current cardioversion after 4 weeks of uninterrupted anticoagulation. Scheduled for atrial fibrillation ablation May 2025 in [place]. I spent a total of 30 minutes on the date of service in preparation, delivery, and documentation of the care provided to this patient, excluding any time spent in the performance of separately billed services. Scot Stanley DO, [facility] Subjective Patient resting in bed. Significant other at bedside. Underwent dual chamber pacer this morning. tolerated without issue. Voices no complaints currently Review of Systems Review of Systems: All systems reviewed & are unremarkable except as noted in HPI & below Physical Exam Constitutional: WD/WN, vitals as above well developed; no acute distress Neck: normal visual inspection Respiratory: normal respiratory effort, lungs clear to auscultation no respiratory distress, no labored breathing and no retractions Auscultation: no crackles, no rales, no rhonchi and no wheezes Cardiovascular: Rate/Rhythm: + tachycardic and + irregularly irregular Heart Sounds: no murmur Vessels: no JVD and no carotid bruit Extremities: no edema Chest (Breasts): Chest: + pacemaker (pacer site covered) Gastrointestinal (Abdomen): Inspection/Auscultation: normal bowel sounds; abdomen not distended Percussion/Palpation: abdomen soft; abdomen nontender, no guarding and abdomen not rigid Neurologic: CN's II-XI intact bilaterally and moves all extremities; no focal motor deficits Results & Data Vital Signs (Past 12 Hours) Vital Signs Temp Pulse Pulse Pulse Resp BP BP 03/09/25 12:54 78 03/09/25 10:15 65 18 110/68 03/09/25 10:00 65 18 113/69 03/09/25 09:45 61 18 83/55 L 03/09/25 09:30 62 18 94/74 L 03/09/25 07:33 36.8 C 67 18 110/63 03/09/25 07:15 60 14 104/76 03/09/25 07:08 80 03/09/25 03:45 36.5 C 77 20 111/79 Pulse Ox O2 Del Method 03/09/25 12:54 03/09/25 10:15 95 Room Air 03/09/25 10:00 95 Room Air 03/09/25 09:45 95 Room Air 03/09/25 09:30 95 Room Air 03/09/25 07:33 93 Room Air 03/09/25 07:15 98 Room Air 03/09/25 07:08 03/09/25 03:45 98 Room Air Laboratory Results Intake and Output 03/08/25 03/09/25 03/09/25 22:59 06:59 14:59 Intake Total 220 / 460 240 / 460 Balance 220 / 460 240 / 460 Intake: Oral 220 / 460 240 / 460 Other: Weight 90.2 kg Weight Measurement Method Built in [facility] Diagnostic Findings Telemetry reviewed: Afib with variable rates. Intermittent ventricular pacing. Chest xray reviewed, post pacer: IMPRESSION: No evidence of pneumothorax status post left subclavian central venous pacemaker placement Medications Administered Current Inpatient Medications Acetaminophen (Acetaminophen 325 Mg Tab) 650 mg PO Q4H PRN PRN Reason: Pain or Fever Stop: 04/06/25 15:23 Al Hydrox/Mg Hydrox/Simethicone (Aluminum/Magnesium Susp 30 Ml Udc) 15 ml PO Q4H PRN PRN Reason: Dyspepsia Stop: 04/06/25 15:23 Alprazolam (Alprazolam 0.25 Mg Tablet) 0.25 mg PO DAILY PRN PRN Reason: anxiety Stop: 04/06/25 15:23 Last Admin: 03/08/25 20:55 Dose: 0.25 mg Apixaban (Apixaban 5 Mg Tablet) 5 mg PO BID JOSE ALFREDO Stop: 04/08/25 13:04 Last Admin: 03/09/25 13:15 Dose: 5 mg Aspirin (Aspirin 81 Mg Ectab) 81 mg PO HS JOSE ALFREDO Stop: 04/06/25 20:59 Last Admin: 03/07/25 21:10 Dose: Not Given Atorvastatin Calcium (Atorvastatin 40 Mg Tab) 80 mg PO HS JOSE ALFREDO Stop: 04/06/25 20:59 Last Admin: 03/08/25 20:55 Dose: 80 mg Magnesium Hydroxide (Magnesium Hydroxide Susp 30 Ml Udc) 30 ml PO Q12H PRN PRN Reason: Constipation Stop: 04/06/25 15:23 Meclizine HCl (Meclizine Hcl 25 Mg Tab) 25 mg PO QID PRN PRN Reason: Dizziness Stop: 04/06/25 15:23 Melatonin (Melatonin 3 Mg Tab) 3 mg PO HS PRN PRN Reason: Sleep Stop: 04/06/25 15:23 Metoprolol Succinate (Metoprolol Succ 25mg Ext Rel Tab) 25 mg PO BID JOSE ALFREDO Stop: 04/08/25 13:04 Last Admin: 03/09/25 13:15 Dose: 25 mg Ondansetron HCl (Ondansetron Inj 2 Mg/Ml 2 Ml Vial) 4 mg IV Q6H PRN PRN Reason: Nausea Stop: 04/06/25 15:23 Polyethylene Glycol (Polyethylene (Miralax) 17 Gm Pack) 17 gm PO DAILY PRN PRN Reason: Constipation Stop: 04/06/25 15:23 Vitamin D (Cholecalciferol 25 Mcg (1000 Units) Tab) 25 mcg PO DAILY JOSE ALFREDO Stop: 04/07/25 08:59 Last Admin: 03/09/25 12:45 Dose: Not Given PG Care Time/CCT Total # of Minutes Spent Total Time Spent with Patient: Total time spent is greater than 50% in coordination of care (as documented) at patient's floor/unit and/or counseling patient: 30 minutes Coding Level of Care Code 27003 SUB INP/OBS CARE 3/50MIN Diagnoses Paroxysmal atrial fibrillation I48.0 Atrial flutter, paroxysmal I48.92 Tachycardia-bradycardia syndrome I49.5 History of NM (myocardial infarction) I25.2 S/P cardiac pacemaker procedure Z95.0
--- NOTE | 2025-03-09 14:21 | Hospitalist Progress Note ---
Date of Service March 09, 2025 Assessment & Plan (1) Atrial fibrillation: Plan: Paroxysmal atrial fibrillation and flutter by history. He currently takes Eliquis which is on hold. Appreciate cardiology consultation and recommendations. Telemetry (2) Tachycardia-bradycardia syndrome: Plan: Telemetry. Metoprolol is on hold. Appreciate cardiology consultation and recommendations. Permanent pacemaker implantation was performed earlier today, March 09. Metoprolol has been restarted at 25 mg twice daily dosing. (3) Hypertension: Plan: Currently stable. Continue medical management (4) Coronary artery disease: Plan: Previous PCI involving LAD. Previous PR. Cardiac echo reveals ejection fraction of 50% with mild left atrial enlargement. Continue current medical management. Telemetry Plan Patient is awaiting return of pacemaker cable technician later today. Possible discharge to home later today or tomorrow, March 10 Admission and Anticipated Discharge Date Admission Date: March 07, 2025 Subjective Alert and oriented. No distress. He underwent permanent pacemaker insertion earlier today without incident. Review of Systems 2 Review of Systems: Constitutionalno fever or chills ENTno blurred vision, no double vision, no epistaxis, no sore throat Respiratoryno cough, no wheezing, no shortness of breath Cardiacno palpitations, no chest pain, no syncope Filipe nausea, vomiting, diarrhea, melena, hematochezia GUno urinary retention, no urinary incontinence, no dysuria, no hematuria Musculoskeletalno joint pain, no muscle tenderness Skinno bruising, no rashes, no pruritus. Pacemaker insertion site unremarkable Neurono isolated weakness, no paresthesia, no weakness Psychno depression, no anxiety Physical Exam 2 Physical Exam: General-alert and oriented x3, no fever, no chills HEENT-head atraumatic and normocephalic, pupils equal and reactive to light, extraocular muscles intact Neck-no lymphadenopathy or thyromegaly, trachea midline Chest-clear to auscultation. No rales, wheezing or rhonchi Cardiac-regular rhythm. Normal rate. Normal S1 and S2 Abdomen-normal bowel sounds, no hepatosplenomegaly Skinleft upper anterior chest pacemaker insertion site unremarkable Extremities-no cyanosis, clubbing, or edema Neuro-cranial nerves II through XII intact, motor and sensory function within normal limits, strength symmetrical, no focal deficits Psych-normal affect, normal mood Results & Data Results & Data Vital Signs (Past 12 Hours) Vital Signs Temp Pulse Pulse Pulse Resp BP BP 03/09/25 12:54 78 03/09/25 10:15 65 18 110/68 03/09/25 10:00 65 18 113/69 03/09/25 09:45 61 18 83/55 L 03/09/25 09:30 62 18 94/74 L 03/09/25 07:33 36.8 C 67 18 110/63 03/09/25 07:15 60 14 104/76 03/09/25 07:08 80 03/09/25 03:45 36.5 C 77 20 111/79 Pulse Ox O2 Del Method 03/09/25 12:54 03/09/25 10:15 95 Room Air 03/09/25 10:00 95 Room Air 03/09/25 09:45 95 Room Air 03/09/25 09:30 95 Room Air 03/09/25 07:33 93 Room Air 03/09/25 07:15 98 Room Air 03/09/25 07:08 03/09/25 03:45 98 Room Air Laboratory Results 03/07/25 11:46 03/07/25 11:46 PG Care Time/CCT Total # of Minutes Spent Total Time Spent with Patient: Total time spent is greater than 50% in coordination of care (as documented) at patient's floor/unit and/or counseling patient: Coding Level of Care Code 41487 SUB INP/OBS CARE 2/35MIN Diagnoses Persistent atrial fibrillation I48.19 Atrial fibrillation type: persistent (not longstanding) Tachycardia-bradycardia syndrome I49.5 Hypertension I10 Coronary artery disease I25.10 (1) Atrial fibrillation Atrial fibrillation type: persistent (not longstanding) Qualified Code(s): I 48.19 - Other persistent atrial fibrillation
[2025-03-09 15:42] VITALS: BP 110/63; PULSE 60; O2SAT 95
--- NOTE | 2025-03-09 17:11 | Discharge Summary ---
Discharge Summary Date of Service March 09, 2025 Principal Dx & Hospital Course #1 = Principal Diagnosis (1) Atrial fibrillation: Paroxysmal atrial fibrillation and flutter by history. He currently takes Eliquis which was held for permanent pacemaker placement and will be restarted tomorrow. Appreciate cardiology consultation and recommendations. Telemetry (2) Tachycardia-bradycardia syndrome: Telemetry. Metoprolol was held on admission. Appreciate cardiology consultation and recommendations. Permanent pacemaker implantation was performed earlier today, March 09. Metoprolol has been restarted at 25 mg twice daily dosing. (3) Hypertension: Currently stable. Continue medical management (4) Coronary artery disease: Previous PCI involving LAD. Previous MO. Cardiac echo reveals ejection fraction of 50% with mild left atrial enlargement. Continue current medical management. Telemetry Plan Patient is awaiting return of pacemaker surfacing technician later today. Possible discharge to home later today or tomorrow, March 10 Admission HPI Per Admitting Provider patient is a very pleasant 79-year-old male who comes in with palpitations that have been worsening. He notes that he has had a lot of trouble with his atrial flutterand is set up for an ablation at [place] in May. He comes in after a few days of worsening symptomsalthough he describes them both as racing at times as well as possibly slow at times. His cardinal symptoms seems to be lightheadednessand at other times notes that if he did not feel his pulse he would not really know anything was going on. He does exercise regularly. Sometimes exercise will improve his rhythms/rates and symptoms. He was given 5 mg of Lopressor and was very bradycardic briefly. Currently feels okay. Discharge Exam General-alert and oriented x3, no fever, no chills HEENT-head atraumatic and normocephalic, pupils equal and reactive to light, extraocular muscles intact Neck-no lymphadenopathy or thyromegaly, trachea midline Chest-clear to auscultation. No rales, wheezing or rhonchi Cardiac-regular rhythm. Normal rate. Normal S1 and S2 Abdomen-normal bowel sounds, no hepatosplenomegaly Skinleft upper anterior chest pacemaker insertion site unremarkable Extremities-no cyanosis, clubbing, or edema Neuro-cranial nerves II through XII intact, motor and sensory function within normal limits, strength symmetrical, no focal deficits Psych-normal affect, normal mood Discharge Plan Discharge Items Patient Disposition: Home - Self-Care Reason For Visit: AFLUTTER Discharge Diagnosis: Tachybradycardia syndrome, near syncope Condition on Discharge: Good Activity: As commented below Activity Comment: do not raise the left elbow over the left shoulder for 1 month Lifting: No more than 10 pounds Lifting Comment: do not lift more than 10 pounds with left arm for 2 weeks Bathing: Keep incision dry Bathing Comment: keep dressing on & dry until wound check Sexual Activity: After two weeks Non-emergency contact: Primary Care Provider and Advice Clerk Call non-emergency contact if: you have any medication questions and your symptoms worsen Follow-up/Referrals: Theresa Tang DO [Primary Care Provider] - 03/14/25 2:00 pm (PCP follow up: Dr Castellanos 03/14/2025 @2pm) Diet: Regular and Heart Healthy Addtl Attending Provider Instructions: Device and wound check at [facility] in about 10 days; someone will call you with appointment. Metoprolol dosage has been increased. A new prescription has been sent to your pharmacy at [facility] Pending Studies at Discharge: No Stand-Alone Forms: My [facility] [place], Smoking Cessation Medications and DC Order Prescriptions: New metoprolol succinate 25 mg Tablet Extended Release 24 Hr 25 mg PO BID Qty: 60 0RF Continued sildenafil (pulm.hypertension) 20 mg tablet 20 mg PO DAILY PRN (Reason: sexual activity) Qty: 30 0RF Rx Instructions: take 1 -5 tabs by mouth one hour before intercourse as needed max dose 100mg/day alprazolam 0.25 mg tablet 0.25 mg PO DAILY PRN (Reason: anxiety) Qty: 15 0RF apixaban 5 mg tablet 0 mg PO BID Patient Comments: 03/07-last filled 11/15 90 day supply cholecalciferol (vitamin D3) 25 mcg (1,000 unit) capsule 25 mcg PO DAILY Patient Comments: 03/07- otc unable to verify meclizine 25 mg tablet 25 mg PO QID PRN (Reason: Dizziness) Patient Comments: 03/07- otc/no fill history unable to verify atorvastatin 80 mg tablet 80 mg PO HS Qty: 90 aspirin [Aspir-81] 81 mg Tablet,Delayed Release (Dr/Ec) 81 mg PO HS Patient Comments: 03/07- otc unable to verify amoxicillin 1 cap PO UD PRN (Reason: dental work) Rx Instructions: dental work Discontinued metoprolol succinate 25 mg tablet extended release 24 hr 12.5 mg PO DAILY Discharge Orders: Discharge Order (Routine); Ordered 03/09/25 Ordered By: Elder Cerda Admission Data Admit Date/Time: 03/07/25 13:57 Attending Provider: Elder Cerda Admit Provider: Harshad Godinez Primary Care Provider: Theresa Tang Other Providers: Harshad Godinez; Scot Stanley Other Interventions: Discharge Summary Assessment (RN) Last Done: 03/09/25 15:41 Hospital Stay Data Consultations 03/07/25 13:08 ED Decision to Admit Stat 03/07/25 13:57 Consult Cardiology Routine Procedures Performed Operation Date: 03/09/25 08:00 Actual Procedures p Pacer with A/V Leads (Dual) - Mallory Curiel DO s Venogram, Unilateral - Mallory Curiel DO Diagnostic Imagining Performed 03/09/25 06:30 EP Lab Images for PACS ONCE Pending Results Patient Have Any Pending Studies at Discharge: No Discharge Instructions Given to Patient (Per Discharging Provider) Device and wound check at [facility] in about 10 days; someone will call you with appointment. Metoprolol dosage has been increased. A new prescription has been sent to your pharmacy at [facility] Total Time Total Time Spent Total Time Spent (In Minutes): 45 minutes Coding Level of Care Code 99443 INP/OBS DISCH >30 MIN Diagnoses Persistent atrial fibrillation I48.19 Atrial fibrillation type: persistent (not longstanding) Tachycardia-bradycardia syndrome I49.5 Hypertension I10 Coronary artery disease I25.10
== END 2025-03-09 16:38 | disposition home or self-care (01) | DRG 243 ==
LOC: ED 11:38 → SUATTDRO 13:57 → 2W 13:57 → 2E 03-09 10:52